=== PATIENT | male | born 1950 | race American Indian/Alaskan Native ===

== ENCOUNTER 2016-07-11 09:16 | Emergency (ER) | payer MEDICARE ==
[2016-07-11 09:26] VITALS: BMI 47.6
[2016-07-11 09:30] VITALS: RESP 18; TEMP 98.5
--- NOTE | 2016-07-11 10:34 | ED PDOC ---
Arrival/HPI - General Chief Complaint: Back Pain Time Seen by Provider: 07/11/16 10:02 Historian: Patient - History of Present Illness Narrative History of Present Illness (Text): 07/11/16 10:31 65-year-old male with a history of leukemia, diabetes, high blood pressure presents today with achy low back pain worse with movement. Patient states he's had the pain in his back for the past 3 days that seems to be worse when he moves sideways. Patient also complaining of left-sided abdominal cramping intermittently which he attributes to not taking the medication that he is supposed to be taking for cramping prior to eating. Patient denies diarrhea. Denies nausea or vomiting. Patient denies dysuria or urinary frequency but states a few days ago his urine had a different color to it. Patient states he then increased his fluids and states that the urine improved. pt denies bladder or bowel incontinence. He denies saddle paresthesias. Denies numbness weakness or tingling in the lower extremities. Patient states he has a chronic wound in the right lower leg for which he sees Dr. Brooks and he just came to the emergency room from the wound center. No medications have been taken for the patient's back pain. Time/Duration: Other ( 3 days) Symptom Onset: Gradual Symptom Course: Unchanged Quality: Stabbing, Cramping Severity Level: 3 Activities at Onset: Rest Past Medical History - Provider Review Nursing Documentation Reviewed: Yes - Travel History Have you recently traveled outside [place] w/in the past 3 mons?: No - Infectious Disease Hx of Infectious Diseases: None - Tetanus Immunization Tetanus Immunization: Unknown - Cardiac Hx Cardiac Disorders: Yes Hx Hypertension: Yes Hx Pacemaker: No Hx Peripheral Edema: Yes Hx Peripheral Vascular Disease: Yes Other/Comment: DVT RIGHT LEG - Pulmonary Hx Respiratory Disorders: Yes Hx Pneumonia: Yes (1995) Other/Comment: smoker - Neurological Hx Neurological Disorder: No - HEENT Hx HEENT Disorder: No - Renal Hx Renal Disorder: No - Endocrine/Metabolic Hx Endocrine Disorders: Yes Hx Diabetes Mellitus Type 2: Yes - Hematological/Oncological Hx Blood Disorders: No Hx Leukemia: Yes - Integumentary Hx Dermatological Disorder: Yes Other/Comment: ULCER RIGHT LEG - Musculoskeletal/Rheumatological Hx Musculoskeletal Disorders: No Hx Arthritis: Yes (RIGHT KNEE) Hx Falls: No Other/Comment: ULCERATION R LEG - Gastrointestinal Hx Gastrointestinal Disorders: No - Genitourinary/Gynecological Hx Genitourinary Disorders: No - Psychiatric Hx Psychophysiologic Disorder: No Hx Depression: No Hx Substance Use: No - Past Surgical History Past Surgical History: No Previous - Surgical History Hx Cardiac Catheterization: Yes Hx Coronary Stent: Yes (x1) Other/Comment: LOWER LEFT LOBECTOMY - Anesthesia Hx Anesthesia: Yes Hx Anesthesia Reactions: No Hx Malignant Hyperthermia: No - Suicidal Assessment Feels Threatened In Home Enviroment: No Family/Social History - Physician Review Nursing Documentation Reviewed: Yes Family/Social History: Unknown Family HX Smoking Status: Current Some Days Smoker Hx Alcohol Use: Yes Frequency of alcohol use: Socially Hx Substance Use: No Hx Substance Use Treatment: No Allergies/Home Meds Allergies/Adverse Reactions: Allergies No Known Allergies Allergy (Verified 03/05/16 15:41) Home Medications: Home Meds Medication Instructions Recorded Confirmed Metformin HCl 1,000 mg PO BID 03/15/12 07/11/16 Acarbose 50 mg PO TID 12/02/13 07/11/16 Rosuvastatin Calcium [Crestor] 10 mg PO HS 12/02/13 07/11/16 Furosemide [Lasix] 20 mg PO DAILY 07/14/15 07/11/16 Clopidogrel [Plavix] 75 mg PO DAILY 03/05/16 07/11/16 Potassium Chloride [Klor-Con 10 meq PO DAILY 03/05/16 07/11/16 Sprinkle] Imatinib Mesylate 400 mg PO DAILY 03/20/16 07/11/16 Aspirin [Lo-Dose Aspirin EC] 1 tab PO DAILY 05/16/16 07/11/16 Omeprazole [Omeprazole] 20 mg PO BID 05/16/16 07/11/16 Review of Systems - Review of Systems Constitutional: absent: Fatigue, Fevers Respiratory: absent: SOB, Cough Cardiovascular: absent: Chest Pain, Palpitations Gastrointestinal: Abdominal Pain. absent: Constipation, Diarrhea, Nausea, Vomiting Genitourinary Male: Dysuria, Frequency. absent: Urinary Output Changes Musculoskeletal: Back Pain. absent: Arthralgias, Neck Pain Skin: absent: Rash, Pruritis Neurological: absent: Headache, Dizziness Psychiatric: absent: Anxiety, Depression Physical Exam Vital Signs Reviewed: Yes Vital Signs Temp Pulse Resp BP Pulse Ox 07/11/16 12:56 82 18 158/96 H 98 07/11/16 11:00 86 18 158/79 H 96 07/11/16 09:29 98.5 F 90 18 163/86 H 95 Temperature: Afebrile Blood Pressure: Hypertensive Pulse: Regular Respiratory Rate: Normal Appearance: Positive for: Well-Appearing, Non-Toxic, Comfortable Pain Distress: None Mental Status: Positive for: Alert and Oriented X 3 - Systems Exam Head: Present: Atraumatic Mouth: Present: Moist Mucous Membranes Neck: Present: Normal Range of Motion Respiratory/Chest: Present: Clear to Auscultation, Good Air Exchange. No: Respiratory Distress, Accessory Muscle Use Cardiovascular: Present: Regular Rate and Rhythm, Normal S1, S2. No: Murmurs Abdomen: Present: Tenderness (Minimal left upper and left lower abdominal tenderness), Normal Bowel Sounds. No: Distention, Peritoneal Signs, Rebound, Guarding Back: Present: Normal Inspection. No: CVA Tenderness, Midline Tenderness, Paraspinal Tenderness Upper Extremity: Present: Normal ROM Neurological: Present: Speech Normal Skin: Present: Warm, Dry, Normal Color Psychiatric: Present: Alert, Oriented x 3 Medical Decision Making ED Course and Treatment: 07/11/16 10:33 Patient is nontoxic well appearing with stable vital signs presenting with [ severe] abdominal pain CBC wnl CMP wnl Urinalysis wnl urine culture pending CAT scan:FINDINGS: LOWER THORAX: No evidence of acute pathology at the lung bases. LIVER: Unremarkable. No gross lesion or ductal dilatation. GALLBLADDER AND BILE DUCTS: Gallstones are seen without evidence of acute cholecystitis. PANCREAS: Unremarkable. No gross lesion or ductal dilatation. SPLEEN: Unremarkable. ADRENALS: Unremarkable. No mass. KIDNEYS AND URETERS: There is no evidence of nephrolithiasis or hydronephrosis. Mild nonspecific bilateral perinephric stranding is noted. VASCULATURE: Unremarkable. No aortic aneurysm. BOWEL: Unremarkable. No obstruction. No gross mural thickening. APPENDIX: There is no evidence of appendicitis. PERITONEUM: Unremarkable. No free fluid. No free air. LYMPH NODES: [id number] enlarged right iliac chain lymphadenopathy are noted. BLADDER: Mild urinary bladder wall thickening. REPRODUCTIVE: The prostate and seminal vesicles are mildly enlarged. BONES: No acute fracture. OTHER FINDINGS: None. IMPRESSION: No evidence of nephrolithiasis or hydronephrosis. [id number] enlarged right iliac chain lymphadenopathy of uncertain etiology. Cholelithiasis without evidence of acute cholecystitis. EKG shows normal sinus rhythm at 83 bpm normal axis normal intervals no ST elevations toradol and flexeril given. case discussed with dr. welch. will treat as muscular back pain; pt has appointment with dr. welch today; advised f/u tomorrow. advised immediate return if symptoms worsen,persist or if new symptoms develop. Patient reassessment: pt non toxic well appearing; no distress. stable vitals. Discussed all results with patient in depth. advised f/u with pmd tomorrow. advised immediate return if symptoms worsen,persist or if new symptoms develop. will send urine culture. Impression: back pain flexeril; 1 tablet every 8 hours as needed for muscle spasms; may cause drowsiness. Follow up with primary care physician tomorrow. Return immediately if symptoms worsen persist or if new symptoms develop: High fevers, increasing pain, vomiting, diarrhea or any other concerning symptoms develop - Lab Interpretations Lab Results: 07/11/16 10:02 07/11/16 10:02 Lab Results 07/11/16 10:02: Urine Color Yellow, Urine Appearance Clear, Urine pH 6.0, Ur Specific Brooks 1.020, Urine Protein Negative, Urine Glucose (UA) Negative, Urine Ketones Negative, Urine Blood Negative, Urine Nitrate Negative, Urine Bilirubin Negative, Urine Urobilinogen 0.2, Ur Leukocyte Esterase Negative 07/11/16 10:02: WBC 7.1, RBC 3.49 L, Hgb 11.3 L, Hct 33.8 L, MCV 96.8, MCH 32.4 , MCHC 33.4, RDW 14.7 H, Plt Count 204, MPV 9.4, Gran % 75.7 H, Lymph % (Auto) 11.2 L, [place] % (Auto) 8.8 H, Eos % (Auto) 3.9, Baso % (Auto) 0.4, Gran # 5.39, Lymph # 0.8 L, [place] # 0.6, Eos # 0.3, Baso # 0.03 07/11/16 10:02: Sodium 142, Potassium 3.8, Chloride 101, Carbon Dioxide 33, Anion Gap 12, BUN 10, Creatinine 0.9, Est GFR ( Amer) > 60, Est GFR (Non- Af Amer) > 60, Random Glucose 95, Calcium 8.7, Total Bilirubin 0.6, AST 22, ALT 34, Alkaline Phosphatase 88, Total Protein 7.3, Albumin 3.8, Globulin 3.5, Albumin/Globulin Ratio 1.1, Lipase 143 - RAD Interpretation Radiology Orders: 07/11/16 10:03 ABD & PELVIS W/O PO OR IV CONT [CT] Stat - Medication Orders Current Medication Orders: Discontinued Medications Cyclobenzaprine HCl (Flexeril) 10 mg PO STAT STA Stop: 07/11/16 12:17 Last Admin: 07/11/16 12:25 Dose: 10 mg Ketorolac Tromethamine (Toradol) 30 mg IVP STAT STA Stop: 07/11/16 12:11 Last Admin: 07/11/16 12:23 Dose: 30 mg Re-Assess: ELYSSA Pain Assessment Document 07/11/16 13:15 SS (Rec: 07/11/16 13:16 SS [facility] [id number]) Pain Reassessment Is this a pain reassessment? Yes Sleep Is patient sleeping during reassessment? No Presence of Pain Presence of Pain Yes Pain Scale Used Pain Scale Used Numeric Location Left, Right or Bilateral Right Upper or Lower Lower Pain Location Body Site Back Description Intensity of Pain at present 1 Disposition/Present on Arrival - Present on Arrival Any Indicators Present on Arrival: Yes History of DVT/PE: Yes History of Uncontrolled Diabetes: Yes Urinary Catheter: No History of Decub. Ulcer: No History Surgical Site Infection Following: None - Disposition Have Diagnosis and Disposition been Completed?: Yes Diagnosis: Back pain, Abdominal pain Disposition: HOME/ ROUTINE Disposition Time: 12:23 Patient Plan: Discharge Condition: GOOD Discharge Instructions (ExitCare): Abdominal Pain (ED), Back Pain (ED) Additional Instructions: flexeril; 1 tablet every 8 hours as needed for muscle spasms; may cause drowsiness. Follow up with primary care physician tomorrow. Return immediately if symptoms worsen persist or if new symptoms develop: High fevers, increasing pain, vomiting, diarrhea or any other concerning symptoms develop Prescriptions: Cyclobenzaprine [Cyclobenzaprine HCl] 10 mg PO Q8 #10 tab Referrals: Asif Welch MD [Primary Care Provider] - Follow up with primary
[2016-07-11 11:03] LABS: ADD MANUAL DIFF? NO
[2016-07-11 11:05] LABS: BASO # 0.03 K/mm3 (0.0-2.0); BASO % 0.4 % (0.0-3.0); EOS # 0.3 (0.0-0.7); EOS % 3.9 % (1.5-5.0); GRAN # 5.39 (1.4-6.5); GRAN % 75.7 % (50.0-68.0); HEMATOCRIT 33.8 % (42.0-52.0); LYMPH # 0.8 (1.2-3.4); LYMPH % 11.2 % (22.0-35.0); MEAN CELL VOLUME 96.8 fL (80.0-105.0); MEAN CORPUSCULAR HEMOGLOBIN 32.4 pg (25.0-35.0); MEAN CORPUSCULAR HGB CONC 33.4 g/dl (31.0-37.0); MEAN PLATELET VOLUME 9.4 fl (7.0-11.0); MONO # 0.6 (0.1-0.6); MONO % 8.8 % (1.0-6.0); PLATELET COUNT 204 10^3/uL (120.0-450.0); RED CELL DISTRIBUTION WIDTH 14.7 % (11.5-14.5); URINE BILIRUBIN NEGATIVE (NEGATIVE); URINE BLOOD NEGATIVE (NEGATIVE); URINE GLUCOSE (UA) NEGATIVE (NEGATIVE); URINE KETONE NEGATIVE (NEGATIVE); URINE LEUKOCYTE ESTERASE NEGATIVE Leu/uL (NEGATIVE); URINE PROTEIN NEGATIVE mg/dL (<30 mg/dL); URINE UROBILINOGEN 0.2 E.U./dL (<1 E.U./dL); WHITE BLOOD COUNT 7.1 10^3/ul (4.5-11.0)
--- NOTE | 2016-07-11 11:08 | CT ---
PROCEDURE: CT Abdomen and Pelvis without intravenous contrast HISTORY: ABDOMINAL PAIN/flank pain COMPARISON: None. TECHNIQUE: Axial and reformatted coronal and sagittal CT images of the abdomen and pelvis were obtained without IV contrast administration.. Contrast Dose: 0 IV contra Radiation dose: Total exam DLP = 2039.2 mGy-cm. This CT exam was performed using one or more of the following dose reduction techniques: Automated exposure control, adjustment of the mA and/or kV according to patient size, and/or use of iterative reconstruction technique. FINDINGS: LOWER THORAX: No evidence of acute pathology at the lung bases. LIVER: Unremarkable. No gross lesion or ductal dilatation. GALLBLADDER AND BILE DUCTS: Gallstones are seen without evidence of acute cholecystitis. PANCREAS: Unremarkable. No gross lesion or ductal dilatation. SPLEEN: Unremarkable. ADRENALS: Unremarkable. No mass. KIDNEYS AND URETERS: There is no evidence of nephrolithiasis or hydronephrosis. Mild nonspecific bilateral perinephric stranding is noted. VASCULATURE: Unremarkable. No aortic aneurysm. BOWEL: Unremarkable. No obstruction. No gross mural thickening. APPENDIX: There is no evidence of appendicitis. PERITONEUM: Unremarkable. No free fluid. No free air. LYMPH NODES: [id number]-[id number] enlarged right iliac chain lymphadenopathy are noted. BLADDER: Mild urinary bladder wall thickening. REPRODUCTIVE: The prostate and seminal vesicles are mildly enlarged. BONES: No acute fracture. OTHER FINDINGS: None. IMPRESSION: No evidence of nephrolithiasis or hydronephrosis. [id number]-[id number] enlarged right iliac chain lymphadenopathy of uncertain etiology. Cholelithiasis without evidence of acute cholecystitis.
[2016-07-11 11:17] LABS: ALB/GLOB RATIO 1.1 (1.1-1.8); ALKALINE PHOSPHATASE 88 U/L (38-133); ALT/SGPT 34 U/L (7-56); AST/SGOT 22 U/L (15-59); BILIRUBIN,TOTAL 0.6 mg/dL (0.2-1.3); BLOOD UREA NITROGEN 10 mg/dL (7-21); CALCIUM 8.7 mg/dL (8.4-10.5); CARBON DIOXIDE 33 mmol/L (21-33); CHLORIDE 101 mmol/L (98-107); GFR AFRICAN-AMERICAN > 60; GLUCOSE,RANDOM 95 mg/dL (70-110); LIPASE 143 U/L (23-300); POTASSIUM 3.8 mmol/L (3.6-5.0); SODIUM 142 mmol/L (132-148); TOTAL PROTEIN 7.3 g/dL (5.8-8.3)
--- NOTE | 2016-07-11 11:40 | CARD ---
APPROVED REPORT EKG Measurement Heart [id number] <Conclusion> Normal sinus rhythm Normal ECG
[2016-07-11 11:53] LABS: URINE APPEARANCE CLEAR (CLEAR); URINE COLOR YELLOW (YELLOW)
[2016-07-11 12:56] VITALS: BP 158/96; PULSE 82; O2SAT 98
== END 2016-07-11 12:59 | disposition home or self-care (01) ==
LOC: ED 09:16
DX: R10.9 Unspecified abdominal pain (principal); M54.5 Low back pain; E11.9 Type 2 diabetes mellitus without complications
CPT/HCPCS: 74176; 80053; 81003; 83690; 85025; 87086; 93005; 96374; 99284; J1885

== ENCOUNTER 2016-10-11 16:23 | Observation (INO) | payer MEDICARE ==
[2016-10-11 16:49] VITALS: BMI 43.1
--- NOTE | 2016-10-11 17:22 | ED PDOC ---
Arrival/HPI - General Chief Complaint: Back Pain Time Seen by Provider: 10/11/16 16:59 Historian: Patient - History of Present Illness Narrative History of Present Illness (Text): The pt is a 66yo male, past medical history of CAD with stents, DM, multiple DVT 's, presents to the Emergency department for evaluation of lower back pain, worse o the left side, present for the past couple days. Pt also reports some chest tightness and discomfort with deep breathing. Additionally reports he feels some epigastric discomfort at times after eating food, describes it as food getting "stuck" in that area. Pt also reports some associated shortness of breath. He denies any worsening leg pain, any dysuria, hematuria. Pt offers no additional medical complaints. Time/Duration: < week (3-4 days) Symptom Onset: Gradual Past Medical History - Provider Review Nursing Documentation Reviewed: Yes - Infectious Disease Hx of Infectious Diseases: None - Tetanus Immunization Tetanus Immunization: Unknown - Cardiac Hx Cardiac Disorders: Yes Hx Hypertension: Yes Hx Pacemaker: No Hx Peripheral Edema: Yes Hx Peripheral Vascular Disease: Yes Other/Comment: DVT RIGHT LEG - Pulmonary Hx Respiratory Disorders: Yes Hx Pneumonia: Yes (1995) Other/Comment: smoker - Neurological Hx Neurological Disorder: No - HEENT Hx HEENT Disorder: No - Renal Hx Renal Disorder: No - Endocrine/Metabolic Hx Endocrine Disorders: Yes Hx Diabetes Mellitus Type 2: Yes - Hematological/Oncological Hx Blood Disorders: No Hx Leukemia: Yes - Integumentary Hx Dermatological Disorder: Yes Other/Comment: ULCER RIGHT LEG - Musculoskeletal/Rheumatological Hx Musculoskeletal Disorders: No Hx Arthritis: Yes (RIGHT KNEE) Hx Falls: No Other/Comment: ULCERATION R LEG - Gastrointestinal Hx Gastrointestinal Disorders: No - Genitourinary/Gynecological Hx Genitourinary Disorders: No - Psychiatric Hx Psychophysiologic Disorder: No Hx Depression: No Hx Substance Use: No - Past Surgical History Past Surgical History: No Previous - Surgical History Hx Cardiac Catheterization: Yes Hx Coronary Stent: Yes (x1) Other/Comment: LOWER LEFT LOBECTOMY - Anesthesia Hx Anesthesia: Yes Hx Anesthesia Reactions: No Hx Malignant Hyperthermia: No - Suicidal Assessment Feels Threatened In Home Enviroment: No Family/Social History - Physician Review Nursing Documentation Reviewed: Yes Family/Social History: Unknown Family HX Smoking Status: Former Smoker Hx Alcohol Use: Yes Frequency of alcohol use: Socially Hx Substance Use: No Hx Substance Use Treatment: No Allergies/Home Meds Allergies/Adverse Reactions: Allergies No Known Allergies Allergy (Verified 03/05/16 15:41) Home Medications: Home Meds Medication Instructions Recorded Confirmed Metformin HCl 1,000 mg PO BID 03/15/12 10/11/16 Acarbose 50 mg PO TID 12/02/13 10/11/16 Rosuvastatin Calcium [Crestor] 10 mg PO HS 12/02/13 10/11/16 Furosemide [Lasix] 20 mg PO DAILY 07/14/15 10/11/16 Clopidogrel [Plavix] 75 mg PO DAILY 03/05/16 10/11/16 Potassium Chloride [Klor-Con 10 meq PO DAILY 03/05/16 10/11/16 Sprinkle] Imatinib Mesylate 400 mg PO DAILY 03/20/16 10/11/16 Aspirin [Lo-Dose Aspirin EC] 1 tab PO DAILY 05/16/16 10/11/16 Omeprazole [Omeprazole] 20 mg PO BID 05/16/16 10/11/16 Review of Systems - Review of Systems Respiratory: SOB Cardiovascular: Other (chest tightness) Musculoskeletal: Back Pain (lower). absent: Other (leg pain) Physical Exam - Physical Exam Narrative Physical Exam (Text): Head: Atraumatic. Normocephalic. Eyes: PERRL. EOMI. Conjunctivae are not pale. ENT: Mucous membranes are moist and intact. Oropharynx is clear and symmetric. Neck: Supple. Full ROM. No JVD. No lymphadenopathy. Cardiovascular: Regular rate. Regular rhythm. Systolic murmur. Distal pulses are 2+ and symmetric. Pulmonary/Chest: No evidence of respiratory distress. Clear to auscultation bilaterally. No wheezing, rales or rhonchi. Abdominal: Soft and non-distended. Mild epigastric pain, no pulsatile masses. No rebound or guarding. Back: No CVA tenderness. Paraspinal mid back pain worse with ROM. Extremities: Bilateral lower extremity edema. FROM of hip and knee. Skin: Skin is warm and dry. No petechiae. No purpura. Neurological: Alert, awake, and oriented to person, place, time, and situation. Normal speech. Motor and sensory exam intact. Psychiatric: Good eye contact. Normal interaction, affect, and behavior. 10/11/16 19:51 Vital Signs Reviewed: Yes Vital Signs Temp Pulse Resp BP Pulse Ox 10/11/16 17:35 89 18 128/71 95 10/11/16 16:51 98.8 F 95 H 18 131/77 95 Temperature: Afebrile Appearance: Positive for: Non-Toxic Pain Distress: Mild Mental Status: Positive for: Alert and Oriented X 3 Medical Decision Making ED Course and Treatment: Impression: 66yo male w/ complaints of lower back pain and shortness of breath Differential Diagnosis included but are not limited to: Pulmonary embolism, pneumonia, kidney stones, pyelonephritis, muscle strain Plan: -- Labs -- Chest X-ray -- EKG -- Reassess and disposition Prior Visits: Notes and results from previous visits were reviewed. Progress Notes: 10/11/16 19:23 Chest X-ray impression: No active pulmonary disease. Chronic left pleural thickening. Labs indicate elevated D-dimer levels. Based on elevated d-dimer levels and complaints of chest pain, CT Angio ordered for further evaluation. CT abdomen ordered due to history of flank/back pain. 10/11/16 21:45 - RAD Interpretation Multimedia Assistant: Radiologist - EKG Interpretation EKG Interpretation (Text): 10/11/16 19:55 normal sinus rhythm rate of [address] elevations Interpreted by ED Physician: Yes Type: 12 lead EKG - Medication Orders Current Medication Orders: Discontinued Medications Azithromycin (Zithromax) 500 mg PO STAT STA PRN Reason: Protocol Stop: 10/11/16 21:40 Iohexol (Omnipaque 350 150 Ml) Confirm Administered Dose 150 ml .ROUTE .STK-MED ONE Stop: 10/11/16 19:01 Ketorolac Tromethamine (Toradol) 30 mg IVP ONCE ONE Stop: 10/11/16 21:24 ED OBSERVATION Date of observation admission: 10/11/16 Time of observation admission: 17:00 - Observation admission statement Patient is being placed in observation because:: Patient with sob, pleuritic pain. Will obtain labs, serial exams. - Goals of Observation Goals of observation are:: Perfrom cardiac, pulmonary, renal evaluation. Ddimer elevated thus ct angiography ordered. - Progress Note Progress Note: 10/11/16 19:56 Patient in no respiratory distress. Labs including ddimer reviewed with patient. As prior history of DVT and elevated Ddimer, ct angio ordered. There is palpable component to back pain, worse with turning and movements. 10/11/16 21:15 CT Angio IMPRESSION: 1. Minimal scattered atelectasis or scar with question of minimal bibasilar infiltrates. 2. Otherwise grossly negative CTA chest. No central pulmonary embolism is identified. Peripheral emboli are more difficult to exclude given the less than optimal opacification of pulmonary branches. 10/11/16 21:17 CT AP IMPRESSION: 1. There has been no change since 07/11/2016. No acute interval process is identified. No renal or ureteral calculi are evident and there is no evidence of obstructive uropathy. 2. Cholelithiasis. 3. Mildly prominent right external iliac nodes which are unchanged. 10/11/16 21:44 Patient on re-evaluation has focal RUQ pain. EKG and troponin unremarkable. Cannot exclude biliary colic as component of symptoms worse with meals. Plan to admit to telemetry observation for cardiac monitoring, GI consultation. Ddx: cad, pneumonia, biliary colic, muscle strain Toradol ordered. Treatment plan reviewed with patient. - Scribe Statement The provider has reviewed the documentation as recorded by the Serafin Clements Provider Scribe Attestation: All medical record entries made by the Dinoibida were at my direction and personally dictated by me. I have reviewed the chart and agree that the record accurately reflects my personal performance of the history, physical exam, medical decision making, and the department course for this patient. I have also personally directed, reviewed, and agree with the discharge instructions and disposition. Disposition/Present on Arrival - Present on Arrival Any Indicators Present on Arrival: Yes History of DVT/PE: Yes History of Uncontrolled Diabetes: Yes Urinary Catheter: No History of Decub. Ulcer: No History Surgical Site Infection Following: None - Disposition Have Diagnosis and Disposition been Completed?: Yes Diagnosis: Cholelithiasis, Dyspnea, Chest pain, Back pain Disposition: HOME/ ROUTINE Disposition Time: 21:46 Patient Plan: Admission, Observation Condition: FAIR
--- NOTE | 2016-10-11 18:02 | RAD ---
HISTORY: pleuritic chest pain COMPARISON: 03/05/2016. FINDINGS: LUNGS: The lungs are clear. There is left pleural thickening. PLEURA: No significant pleural effusion identified, no pneumothorax apparent. CARDIOVASCULAR: The heart is normal in size. Atherosclerotic aortic arch calcifications are present. OSSEOUS STRUCTURES: No significant abnormalities. VISUALIZED UPPER ABDOMEN: Normal. OTHER FINDINGS: There is chronic elevation of the right hemidiaphragm IMPRESSION: No active pulmonary disease. Chronic left pleural thickening.
[2016-10-11 18:11] LABS: HEMOGLOBIN 11.3 gm/dL (14.0-18.0); RBC 3.42 10^6/uL (3.5-6.1); WHITE BLOOD COUNT 8.2 10^3/ul (4.5-11.0)
[2016-10-11 18:12] LABS: ALB/GLOB RATIO 1.2 (1.1-1.8); ALBUMIN 3.9 g/dL (3.0-4.8); ALT/SGPT 28 U/L (7-56); AST/SGOT 32 U/L (15-59); BASO # 0.02 K/mm3 (0.0-2.0); BASO % 0.2 % (0.0-3.0); BLOOD UREA NITROGEN 9 mg/dL (7-21); EOS # 0.3 (0.0-0.7); EOS % 3.4 % (1.5-5.0); GFR AFRICAN-AMERICAN > 60; GFR NON-AFRICAN AMERICAN > 60; GRAN % 73.5 % (50.0-68.0); LYMPH # 1.1 (1.2-3.4); LYMPH % 13.2 % (22.0-35.0); MEAN CELL VOLUME 99.4 fL (80.0-105.0); MEAN CORPUSCULAR HGB CONC 33.2 g/dl (31.0-37.0); MEAN PLATELET VOLUME 9.7 fl (7.0-11.0); MONO # 0.8 (0.1-0.6); MONO % 9.7 % (1.0-6.0); PLATELET COUNT 236 10^3/uL (120.0-450.0); RED CELL DISTRIBUTION WIDTH 14.7 % (11.5-14.5)
[2016-10-11 18:24] LABS: TROPONIN I < 0.01 ng/mL
[2016-10-11 18:44] LABS: D DIMER 1.33 mg/L FEU (0-0.50); INR 1.03 (0.93-1.08); PARTIAL THROMBOPLASTIN TIME 24.3 Seconds (23.7-30.8); PROTHROMBIN TIME 11.1 Seconds (9.9-11.8)
[2016-10-11 19:23] LABS: PH,URINE 6.5 (4.7-8.0); URINE BILIRUBIN NEGATIVE (NEGATIVE); URINE BLOOD NEGATIVE (NEGATIVE); URINE GLUCOSE (UA) NEGATIVE (NEGATIVE); URINE LEUKOCYTE ESTERASE NEGATIVE Leu/uL (NEGATIVE); URINE NITRATE NEGATIVE (NEGATIVE)
[2016-10-11 19:24] LABS: URINE APPEARANCE CLEAR (CLEAR); URINE PROTEIN NEGATIVE mg/dL (<30 mg/dL)
[2016-10-11] MEDS: Insulin Reg-LOW-Coverage SC SCH (23:03)
[2016-10-12 00:55] VITALS: RESP 20
[2016-10-12 06:44] VITALS: TEMP 97.4; O2SAT 97
[2016-10-12] MEDS: Insulin Reg-LOW-Coverage SC SCH ×2 (08:38→11:37)
--- NOTE | 2016-10-12 11:10 | CT ---
PROCEDURE: CT Abdomen and Pelvis without intravenous contrast HISTORY: flank pain COMPARISON: Abdomen pelvis CT without contrast 07/11/2016. TECHNIQUE: Technique. Contrast Dose: None Radiation dose: Total exam DLP = 1235 mGy-cm. This CT exam was performed using one or more of the following dose reduction techniques: Automated exposure control, adjustment of the mA and/or kV according to patient size, and/or use of iterative reconstruction technique. FINDINGS: LOWER THORAX: Delayed left hemidiaphragm, etiology indeterminate. LIVER: Unremarkable. No gross lesion or ductal dilatation. GALLBLADDER AND BILE DUCTS: Cholelithiasis identified within a contracted gallbladder. Biliary tree is poorly evaluated due to lack of intravenous contrast. PANCREAS: Unremarkable. No gross lesion or ductal dilatation. SPLEEN: Unremarkable. ADRENALS: Unremarkable. No mass. KIDNEYS AND URETERS: Stable nonspecific perinephric streaky changes are identified bilaterally once again. No definite obstructive uropathy or radiodense urolithiasis. VASCULATURE: Unremarkable. No aortic aneurysm. BOWEL: Unremarkable. No obstruction. No gross mural thickening. The lack of oral contrast inhibits the evaluation of large and small bowel APPENDIX: Unremarkable. Normal appendix. PERITONEUM: Unremarkable. No free fluid. No free air. LYMPH NODES: Mildly enlarged right external iliac lymph nodes again evident, unchanged. BLADDER: Unremarkable. REPRODUCTIVE: Unremarkable. BONES: No acute fracture. OTHER FINDINGS: None. IMPRESSION: 1. Nonacute abdomen pelvis CT examination without contrast. Further characterization can be carried out by contrast CT if clinically warranted. 2. Cholelithiasis. 3. Chronic bilateral perinephric streaky changes of uncertain origin unchanged. 4. Limited left hemidiaphragm.
--- NOTE | 2016-10-12 11:43 | CT ---
PROCEDURE: CT Chest with contrast (Pulmonary Angiogram) HISTORY: r/o PE COMPARISON: Prior CT angiogram chest 03/05/2016. TECHNIQUE: Axial computed tomography images were obtained of the chest in the pulmonary arterial phase of enhancement. Coronal and sagittal reformatted images were created and reviewed. Intravenous contrast dose: Omnipaque 350, 148 cc Radiation dose: Total exam DLP = 975 mGy-cm. This CT exam was performed using one or more of the following dose reduction techniques: Automated exposure control, adjustment of the mA and/or kV according to patient size, and/or use of iterative reconstruction technique. FINDINGS: PULMONARY ARTERIES: The main pulmonary artery is mildly dilated measuring measuring 31 mm suspicious for pulmonary artery hypertension. No definitive pulmonary embolus identified however the less than optimal contrast opacification is encountered limiting evaluation somewhat. Secondary, tertiary and more distal pulmonary branching is poorly evaluated. AORTA: No acute findings. No thoracic aortic aneurysm. LUNGS: Limited bilateral basilar dependent atelectasis identified. Ground-glass opacities identified at the bases somewhat, of uncertain origin. A tiny bulla is appreciate the right middle lobe in the interval with a similar additional bulla the left lower lobe, which is stable. PLEURAL SPACES: Unremarkable. No effusion or pneuomothorax. HEART: Stable cardiomegaly. No pulmonary vascular derangement. LYMPH NODES: No lymphadenopathy. BONES, CHEST WALL: Extensive multi level thoracic spondylosis is identified. OTHER FINDINGS: Unremarkable. IMPRESSION: 1. Somewhat suboptimal contrast opacification throughout the pulmonary arterial system however no definitive pulmonary embolus is appreciate. Small branches are poorly evaluated however. Clinically correlate further. 2. Pulmonary hypertension is in question. Clinically correlate further. 3. Stable cardiomegaly. 4. Limited ground-glass opacity seen in the bilateral lung bases which is nonspecific. No definite alveolitis. No pleural effusion.
--- NOTE | 2016-10-12 11:45 | CARD ---
APPROVED REPORT EKG Measurement Heart [id number] VT 152P51 [id number] <Conclusion> Normal sinus rhythm Normal ECG
[2016-10-12 11:55] VITALS: BP 130/64; PULSE 80
--- NOTE | 2016-10-12 20:51 | HP ---
CHIEF COMPLAINT AND HISTORY OF PRESENT ILLNESS: This is a 66-year-old male who is coming into the hospital with complaints of back pain. The patient states that his pain started suddenly yesterday. He states that it was at the sides of his flanks as well. He has a past medical history of coronary artery disease with stents, diabetes and DVT. The patient has no fevers or chills. He also was feeling that food was getting stuck in his throat. The patient has no shortness of breath that he complained to me about, although he did tell the ER that he has some associated shortness of breath. He denies any fevers or chills. No dysuria, frequency. No nocturia. No weakness in the arms or legs. ALLERGIES: No known drug allergies. HOME MEDICATIONS: Metformin, Crestor, acarbose, Lasix, Plavix, potassium, imatinib, aspirin and omeprazole. PAST MEDICAL HISTORY: Diabetes type 2, morbid obesity and hypertension. SOCIAL HISTORY: He denies drinking, smoking or alcohol. PHYSICAL EXAMINATION VITAL SIGNS: Temperature is 97.4, pulse is 74, blood pressure 114/66, respirations 20, O2 saturation 97%. GENERAL: The patient is lying in bed, flat, and in no apparent distress. HEAD AND NECK EXAM: Atraumatic, normocephalic. Conjunctivae are pink. Throat is clear and mouth with moist mucosa. Oropharynx is benign. EYES: Extraocular movements are intact. PERRLA. NECK: Supple. No JVD, thyromegaly, or adenopathy. No bruits. HEART: S1 and S2 regular rate and rhythm. No murmurs, rubs, or gallops. LUNGS: Clear to auscultation bilaterally. No wheezing, rales, or rhonchi appreciated. No retractions on exam. ABDOMEN: Soft, nontender, and nondistended. Bowel sounds are positive in all quadrants. No rebound. No hepatosplenomegaly. EXTREMITIES: No cyanosis, clubbing, or edema. NEUROLOGIC: No facial asymmetry. Tongue is midline. No uvula deviation. Power is 5/5 in upper extremity and 5/5 in lower extremity. Sensation is normal in upper extremities and lower extremities. PSYCHIATRIC: Awake, alert, oriented x3. No anxiety or depression symptoms. Good insight. Normal affect. GENITOURINARY: No CVA tenderness. VASCULAR: 2+ pulses in carotid and pedal pulses. SKIN: No erythema or abnormal nodules noted. SPINE: Normal curvature. LYMPHADENOPATHY: No anterior cervical or posterior cervical adenopathy. No inguinal adenopathy. LABORATORY DATA: White count of 8.2, hemoglobin 11.3 and platelet count is 236. Chemistry shows a sodium of 142, potassium is 3.9, creatinine is 1.2, troponin is 0.01, INR is 1.03. Urine shows glucose is negative, blood is negative and nitrites are negative. Chest x-ray done shows no active pulmonary disease. There is chronic left pleural thickening. CT angio was done, showed no change since the last CAT scan. There is cholelithiasis. There is a prominent right external iliac nodule. CT angio shows negative for PE. ASSESSMENT: 1. Cholelithiasis. 2. Diabetes type 2. 3. Morbid obesity with a BMI of 43. 4. Hypertension. 5. Chronic venous ulcers. PLAN: The patient is comfortable. He has no other complaints. I will discharge him home. I will follow up him as an outpatient. I have asked Dr. Delgadillo to see him for followup as well. He is going to be on Lasix. He is on Metformin but has been on hold because of contrast he received and he is on insulin sliding scale. Condition is stable. Activities, increase as tolerated. Asif Welch MD
--- NOTE | 2016-10-13 02:35 | CON ---
This is Dr. zoran Villafana dictating a cardiology consultation (for Dr. Gunderson). HISTORY: The patient is a 66-year-old male who presents with atypical chest pain. He suffers from diabetes mellitus, hypertension and hypercholesterolemia. The patient had a cardiac evaluation this year, which included a stress test as well as an echocardiogram, which were all unremarkable. The patient is adamant about not having any chest pain discomfort. He does complain of occasional shortness of breath. SOCIAL HISTORY: The patient is an active smoker. REVIEW OF SYSTEMS: A 14-point review of systems was reviewed in detail. Other than his shortness of breath, no other cardiac symptoms are noted. PHYSICAL EXAMINATION: Vital signs: On physical exam blood pressure 145/77, heart rate in the 70s. Neck: Negative JVD. Lungs: Without rales. Heart: Reveal S1, S2. Extremities: Without edema. EKG is unremarkable. Hemoglobin is 11.3. Troponin is negative x1. The glucose is 135. IMPRESSION 1. Atypical chest pain. 2. No evidence for acute coronary syndrome. 3. Dyspnea, which is likely related to his smoking. 4. Hypertension. 5. Diabetes mellitus. 6. Hypercholesterolemia. 7. Active smoker. Given these findings, I have discussed with the patient about the need to stop smoking. Risks, benefits have been discussed in detail. Will DC telemetry today. No further cardiac workup is necessary. Zoran Villafana MD
== END 2016-10-12 13:38 | disposition home or self-care (01) ==
LOC: ED 16:23 → EROBSV 17:00 → ERH 21:58 → 2RSO 10-12 00:22
PROVIDERS: ADMIT Internal Medicine Nephrology; ATTEND Internal Medicine Nephrology
DX: R07.89 Other chest pain (principal); E11.9 Type 2 diabetes mellitus without complications; E66.01 Morbid (severe) obesity due to excess calories; Z68.41 Body mass index [BMI] 40.0-44.9, adult; E78.00 Pure hypercholesterolemia, unspecified; F17.200 Nicotine dependence, unspecified, uncomplicated; I10 Essential (primary) hypertension; I25.10 Atherosclerotic heart disease of native coronary artery without angina pectoris; I73.9 Peripheral vascular disease, unspecified; J18.9 Pneumonia, unspecified organism; K80.20 Calculus of gallbladder without cholecystitis without obstruction; Z79.02 Long term (current) use of antithrombotics/antiplatelets; Z79.82 Long term (current) use of aspirin; Z79.899 Other long term (current) drug therapy; Z85.6 Personal history of leukemia; Z87.01 Personal history of pneumonia (recurrent); Z95.5 Presence of coronary angioplasty implant and graft
CPT/HCPCS: 71010; 71275; 74176; 80053; 81003; 82550; 82948; 83615; 84484; 85025; 85378; 85610; 85730; 93005; 96374; 96375; 99285; G0378; J1885; Q9967

== ENCOUNTER 2016-12-08 20:40 | Observation (INO) | payer MEDICARE ==
--- NOTE | 2016-12-08 21:16 | ED PDOC ---
Arrival/HPI - General Chief Complaint: Weakness/Neurological Deficit Time Seen by Provider: 12/08/16 21:09 Historian: Patient - History of Present Illness Narrative History of Present Illness (Text): 12/08/16 21:15 Emeka Handy is a 66 year old male, whose past medical history includes CAD with stents, diabetes, hypertension, DVT, and PVD, who presents to the ED complaining of chest discomfort for the past few days. Patient also reports associated shortness of breath/dyspnea on exertion. Patient denies any nausea, vomiting, diarrhea, fever, chills, headache, dizziness, or any other complaints. PMD: Dr. Welch Fitness Plan Coordinator: Dr. Gunderson Time/Duration: < week (few days) Symptom Onset: Gradual Symptom Course: Unchanged Activities at Onset: Light Context: Home Past Medical History - Provider Review Nursing Documentation Reviewed: Yes - Infectious Disease Hx of Infectious Diseases: None - Tetanus Immunization Tetanus Immunization: Unknown - Cardiac Hx Cardiac Disorders: Yes Hx Hypertension: Yes Hx Pacemaker: No Hx Peripheral Edema: Yes Hx Peripheral Vascular Disease: Yes Other/Comment: DVT RIGHT LEG - Pulmonary Hx Respiratory Disorders: Yes Hx Pneumonia: Yes (1995) Other/Comment: smoker - Neurological Hx Neurological Disorder: No - HEENT Hx HEENT Disorder: No - Renal Hx Renal Disorder: No - Endocrine/Metabolic Hx Endocrine Disorders: Yes Hx Diabetes Mellitus Type 2: Yes - Hematological/Oncological Hx Blood Disorders: No - Integumentary Hx Dermatological Disorder: Yes Other/Comment: ULCER RIGHT LEG - Musculoskeletal/Rheumatological Hx Falls: Yes - Gastrointestinal Hx Gastrointestinal Disorders: No - Genitourinary/Gynecological Hx Genitourinary Disorders: No - Psychiatric Hx Psychophysiologic Disorder: No Hx Depression: No Hx Substance Use: No - Past Surgical History Past Surgical History: No Previous - Surgical History Hx Cardiac Catheterization: Yes Hx Coronary Stent: Yes (x1) Other/Comment: LOWER LEFT LOBECTOMY - Anesthesia Hx Anesthesia: Yes Hx Anesthesia Reactions: No Hx Malignant Hyperthermia: No - Suicidal Assessment Feels Threatened In Home Enviroment: No Family/Social History - Physician Review Nursing Documentation Reviewed: Yes Family/Social History: Unknown Family HX Smoking Status: Former Smoker Hx Alcohol Use: Yes Frequency of alcohol use: Socially Hx Substance Use: No Hx Substance Use Treatment: No Allergies/Home Meds Allergies/Adverse Reactions: Allergies No Known Allergies Allergy (Verified 12/08/16 20:47) Home Medications: Home Meds Medication Instructions Recorded Confirmed Metformin HCl 1,000 mg PO BID 03/15/12 12/08/16 Acarbose 50 mg PO TID 12/02/13 12/08/16 Rosuvastatin Calcium [Crestor] 10 mg PO HS 12/02/13 12/08/16 Furosemide [Lasix] 20 mg PO DAILY 07/14/15 12/08/16 Clopidogrel [Plavix] 75 mg PO DAILY 03/05/16 12/08/16 Potassium Chloride [Klor-Con 10 meq PO DAILY 03/05/16 12/08/16 Sprinkle] Imatinib Mesylate 400 mg PO DAILY 03/20/16 12/08/16 Aspirin [Lo-Dose Aspirin EC] 1 tab PO DAILY 05/16/16 12/08/16 Omeprazole [Omeprazole] 20 mg PO BID 05/16/16 12/08/16 Review of Systems - Physician Review All systems were reviewed & negative as marked: Yes - Review of Systems Constitutional: Normal. absent: Fevers Eyes: Normal ENT: Normal Respiratory: SOB Cardiovascular: Chest Pain, JAY Gastrointestinal: Normal. absent: Abdominal Pain, Diarrhea, Nausea, Vomiting Genitourinary Male: Normal. absent: Dysuria, Frequency, Hematuria, Urinary Output Changes Musculoskeletal: Normal. absent: Back Pain, Neck Pain Skin: Normal. absent: Rash Neurological: Normal. absent: Headache, Dizziness Endocrine: Normal Hemo/Lymphatic: Normal Psychiatric: Normal Physical Exam Vital Signs Reviewed: Yes Vital Signs Temp Pulse Resp BP Pulse Ox 12/08/16 23:55 82 16 125/65 95 12/08/16 22:55 81 16 134/61 96 12/08/16 21:55 83 18 131/52 L 97 12/08/16 20:51 98.3 F 96 H 18 148/80 94 L Temperature: Afebrile Blood Pressure: Normal Pulse: Regular Respiratory Rate: Normal Appearance: Positive for: Well-Appearing, Non-Toxic, Comfortable Pain Distress: None Mental Status: Positive for: Alert and Oriented X 3 - Systems Exam Head: Present: Atraumatic, Normocephalic Pupils: Present: PERRL Extroacular Muscles: Present: EOMI Conjunctiva: Present: Normal Mouth: Present: Moist Mucous Membranes Neck: Present: Normal Range of Motion Respiratory/Chest: Present: Clear to Auscultation, Good Air Exchange. No: Respiratory Distress, Accessory Muscle Use Cardiovascular: Present: Regular Rate and Rhythm, Normal S1, S2. No: Murmurs Abdomen: Present: Normal Bowel Sounds. No: Tenderness, Distention, Peritoneal Signs Upper Extremity: Present: Normal Inspection. No: Cyanosis, Edema Lower Extremity: Present: Normal Inspection, NORMAL PULSES, Normal ROM, Neurovascularly Intact, Capillary Refill < 2 s. No: Edema, CALF TENDERNESS, Cyanosis, Jordan's Sign, Tenderness, Swelling, Erythema, Deformity, Temperature Abnormalties Neurological: Present: GCS=15, CN II-XII Intact, Speech Normal Skin: Present: Warm, Dry, Normal Color. No: Rashes Psychiatric: Present: Alert, Oriented x 3, Normal Insight, Normal Concentration Medical Decision Making ED Course and Treatment: 12/08/16 21:16 Impression: 66 year old male c/o chest discomfort and shortness of breath/dyspnea on exertion for 2-3 days. Plan: -- EKG -- CXR -- Labs, cardiac enzymes -- Reassess and disposition Prior Visits: Notes and results from previous visits were reviewed. On 10/11/2016, pt was seen in the ED for lower back pain with chest tighness and shortness of breath. Pt was admitted to the hospital for further evaluation. Progress Notes: 12/08/16 21:45 Reviewed EKG, NSR at [address]-segment elevations or depressions, no T-wave inversions, normal intervals. 12/08/16 23:57 Reviewed radiology, CXR show: Persistent lesion of the left hemidiaphragm, with adjacent compressive atelectasis (unchanged from 10/11/2016). The remainder of the cardiomediastinal silhouette is otherwise unremarkable. The remainder of the lungs are otherwise clear. No subdiaphragmatic free air or pneumothorax. The trachea is midline. IMPRESSION: Stable radiographic evaluation of the chest, without focal infiltrate or effusion. 12/09/16 00:[address] Welch, who is aware and agrees with plan. Accepts pt in to his service. Pt will go to Telemetry observation for chest pain. Pt is no acute distress. Discussed results and hospital observation plan with pt , who is aware and verbalizes understanding. - Lab Interpretations Lab Results: 12/08/16 21:50 12/08/16 21:50 Lab Results 12/08/16 22:50: NT-Pro-B Natriuret Pep 123 12/08/16 21:50: WBC 8.0, RBC 3.19 L, Hgb 10.5 L, Hct 30.9 L, MCV 96.9, MCH 32.9 , MCHC 34.0, RDW 13.5, Plt Count 180, MPV 9.3 12/08/16 21:50: Sodium 145, Potassium 3.8, Chloride 106, Carbon Dioxide 28, Anion Gap 15, BUN 13, Creatinine 1.0, Est GFR ( Amer) > 60, Est GFR (Non- Af Amer) > 60, Random Glucose 91, Calcium 8.6, Total Bilirubin 0.8, AST 24, ALT 25, Alkaline Phosphatase 73, Lactate Dehydrogenase 509, Total Creatine Kinase 147, Troponin I < 0.01, Total Protein 6.5, Albumin 3.9, Globulin 2.6, Albumin/ Globulin Ratio 1.5 12/08/16 21:50: PT 11.4, INR 1.06, APTT 25.3 - RAD Interpretation Radiology Orders: 12/08/16 21:36 CHEST PORTABLE [RAD] Stat - EKG Interpretation EKG Interpretation (Text): EKG: Ordered, reviewed, and independently interpreted the EKG. Rate : 86 BPM Rhythm : NSR Interpretation : Comparison : No acute change from previous EKG on 10/11/2016. Interpreted by ED Physician: Yes Type: 12 lead EKG - Medication Orders Current Medication Orders: Discontinued Medications Aspirin (Aspirin) 325 mg PO ONCE STA Stop: 12/09/16 00:33 Last Admin: 12/09/16 00:45 Dose: 325 mg - Dinoibe Statement The provider has reviewed the documentation as recorded by the Dinoibida Chambers All medical record entries made by the Serafin were at my direction and personally dictated by me. I have reviewed the chart and agree that the record accurately reflects my personal performance of the history, physical exam, medical decision making, and the department course for this patient. I have also personally directed, reviewed, and agree with the discharge instructions and disposition. Disposition/Present on Arrival - Present on Arrival Any Indicators Present on Arrival: No History of DVT/PE: Yes History of Uncontrolled Diabetes: No Urinary Catheter: No History of Decub. Ulcer: No History Surgical Site Infection Following: None - Disposition Have Diagnosis and Disposition been Completed?: Yes Diagnosis: Chest pain Disposition: HOSPITALIZED Disposition Time: 00:32 Patient Plan: Observation Patient Problems: Current Active Problems Problem Status Onset Chest pain Acute Condition: STABLE Discharge Instructions (ExitCare): Chest Pain (ED) Referrals: Asif Welch MD [Primary Care Provider] - Follow up with primary Forms: [employer] ([place])
[2016-12-08 22:07] LABS: HEMATOCRIT 30.9 % (42.0-52.0); MEAN CELL VOLUME 96.9 fl (80.0-105.0); MEAN CORPUSCULAR HEMOGLOBIN 32.9 pg (25.0-35.0); MEAN PLATELET VOLUME 9.3 fl (7.0-11.0); RED CELL DISTRIBUTION WIDTH 13.5 % (11.5-14.5)
[2016-12-08 22:13] LABS: ALB/GLOB RATIO 1.5 (1.1-1.8); ALKALINE PHOSPHATASE 73 U/L (38-126); ALT/SGPT 25 U/L (7-56); AST/SGOT 24 U/L (17-59); BILIRUBIN,TOTAL 0.8 mg/dL (0.2-1.3); BLOOD UREA NITROGEN 13 mg/dL (7-21); CALCIUM 8.6 mg/dL (8.4-10.5); CARBON DIOXIDE 28 mmol/L (21-33); CHLORIDE 106 mmol/L (98-107); GFR AFRICAN-AMERICAN > 60; GLUCOSE,RANDOM 91 mg/dL (70-110); INR 1.06 (0.93-1.08); PARTIAL THROMBOPLASTIN TIME 25.3 Seconds (23.7-30.8); POTASSIUM 3.8 mmol/L (3.6-5.0); SODIUM 145 mmol/L (132-148); TOTAL PROTEIN 6.5 g/dL (5.8-8.3)
[2016-12-08 22:29] LABS: TROPONIN I < 0.01 ng/mL
--- NOTE | 2016-12-08 23:45 | RAD ---
EXAM: XR Chest, 1 View CLINICAL HISTORY: 66 years old, male; Pain; Chest pain TECHNIQUE: Frontal view of the chest. COMPARISON: DX - CHEST PORTABLE 10/11/2016 5:27:17 PM FINDINGS: Persistent lesion of the left hemidiaphragm, with adjacent compressive atelectasis (unchanged from 10/11/2016). The remainder of the cardiomediastinal silhouette is otherwise unremarkable. The remainder of the lungs are otherwise clear. No subdiaphragmatic free air or pneumothorax. The trachea is midline. IMPRESSION: Stable radiographic evaluation of the chest, without focal infiltrate or effusion.
[2016-12-09] MEDS ORDERED: Albuterol-Ipratrop 3 mg / 0.5 (3 ml) UD IH PRN (00:37)
[2016-12-09] MEDS: Insulin Reg-LOW-Coverage SC SCH ×4 (08:07→21:35)
[2016-12-09 08:22] VITALS: O2SAT 98
[2016-12-09] MEDS: IMATINIB 400 MG PO SCH (09:49)
[2016-12-09] MEDS ORDERED: IMATINIB MESYLATE 400 MG PO SCH (10:00)
[2016-12-09 11:12] LABS: TROPONIN I 0.02 ng/mL
--- NOTE | 2016-12-09 11:41 | HP ---
CHIEF COMPLAINT AND HISTORY OF PRESENT ILLNESS: This is a 66-year-old male who has come in to the hospital with complaints of right-sided chest pain. The patient states that started overnight, he was concerned about heart issues because he had a stent in the past, so he came in for further evaluation. The patient denies any weakness in the arms or legs. He has a history of hypertension, coronary artery disease. He has also chronic wound in the right leg that has been treated by podiatry. No headache or dizziness. No nausea. No vomiting. No dysuria or frequency. No weakness in the arms or legs. REVIEW OF SYSTEMS: All other review of symptoms are within normal limits except as mentioned. ALLERGIES: NO KNOWN DRUG ALLERGIES. HOME MEDICATIONS: Metformin, acarbose, Crestor, Lasix, Plavix, potassium, imatinib, aspirin and omeprazole. PAST MEDICAL HISTORY: 1. Diabetes type 2. 2. Morbid obesity. 3. Hypertension. 4. Cholelithiasis. 5. Chronic venous ulcers. SOCIAL HISTORY: The patient denies smoking or drinking alcohol. FAMILY HISTORY: Noncontributory. PHYSICAL EXAMINATION: VITAL SIGNS: Temperature is 98.3, pulse of 96, blood pressure 131/50, respirations 18, O2 saturation 94%. Height is 6 feet 2 inches, weight is 315 pounds, BMI is 40.4. GENERAL: The patient lying in bed, uncomfortable, and in no acute distress. HEENT: Atraumatic and normocephalic. Anicteric sclerae. Moist mucosa. Dupo conjunctivae. No oral lesions. NECK: No JVD, anterior and posterior adenopathy, thyromegaly, or bruits. CARDIOVASCULAR: S1 and S2 regular. No murmur, rubs, or gallop. LUNGS: Clear to auscultation bilaterally. No wheezes, rales, or rhonchi. ABDOMEN: Bowel sounds are positive. Soft, nontender and nondistended. No hepatosplenomegaly. No rebound and no guarding NEUROLOGIC: No facial asymmetry. Tongue is midline. No uvula deviation. Power is 5/5 upper extremity and lower extremity. Sensation intact in upper extremity and lower extremity. PSYCHIATRIC: He is awake, alert and oriented x3. No anxiety or depression. He has normal affect. GENITOURINARY: No CVA tenderness. VASCULAR: 2+ pulses in the carotid pulses and pedal pulses. SKIN: No erythema or nodules SPINE: Shows normal curvature. EXTREMITIES: In the right leg, there is 1+ edema. There is dressing in place from chronic ulcer. LABORATORY DATA: Hemoglobin is 10.5. INR is 1.06. Creatinine is 1.0 with a troponin of 0.01. Chest x-ray shows no infiltrates. ASSESSMENT: 1. Chest pain. 2. Diabetes type 2. 3. Morbid obesity with a body mass index of 40. 4. Hypertension. 5. Cholelithiasis. 6. Chronic venous ulcers. PLAN: The patient is currently comfortable. He has chest pain. He does have a history of coronary artery disease and a stent placed. He has been compliant with medications. The patient has been on aspirin, Plavix, which will be continued. Home medications reviewed. He is going to continue with insulin. He also has a history of CLL, he is on imatinib. The patient is going to continue with his cholesterol medication. I have asked Dr. Gunderson to see the patient. I did speak to Dr. Gunderson regarding the case. The patient had an EKG done shows sinus rhythm at 86, no ST-T changes. If the patient's troponin is normal, we will most likely discharge home and have him to follow up with Dr. Gunderson as an outpatient. Condition is stable. Activities increase as tolerated. Asif Welch MD
[2016-12-09 14:35] VITALS: BMI 42.3
--- NOTE | 2016-12-09 15:48 | CARD ---
APPROVED REPORT EKG Measurement Heart [id number] VA 158P57 [id number] <Conclusion> Normal sinus rhythm Normal ECG
--- NOTE | 2016-12-09 19:23 | CARD ---
APPROVED REPORT EXAM: Two-dimensional and M-mode echocardiogram with Doppler and color Doppler. INDICATION Chest Pain LVFX 2D DIMENSIONS Left Atrium (2D)4.9 (1.6-4.0cm)IVSd1.3 (0.7-1.1cm) LVDd5.0 (3.9-5.9cm)PWd1.4 (0.7-1.1cm) LVDs3.2 (2.5-4.0cm)FS (%) 35.9 % LVEF (%)65.3 (>50%) M-Mode DIMENSIONS Aortic Root3.60 (2.2-3.7cm)Aortic Cusp Exc.2.00 (1.5-2.0cm) Aortic Valve AoV Peak Mztxfjxr136.0cm/Calos Peak GR.14mmHgLVOT Peak Uqzllaul661.0cm/s LVOT VTI27.40cm Mitral Valve MV E Dsdvtako80.9cm/sMV A Qhzoaard616.0cm/sMV ZMG320ng E/A ratio0.8MVA (PHT)2.06cm2 TDI Lateral E' Peak V6.43cm/sE/Lateral E'13.7E/Medial E'0.0 Pulmonary Valve PV Peak Umqlrwil59.0cm/sPV Peak Grad.2mmHg Tricuspid Valve TR Peak Kkmwpayl455nz/sRAP YECMFVVD53wxKxQV Peak Gr.9mmHg [id number] LEFT VENTRICLE The left ventricle is normal size. There is mild concentric left ventricular hypertrophy. The left ventricular function is normal. EF-65% There is normal LV segmental wall motion. Transmitral Doppler flow pattern is Grade III-reversible restrictive diastolic dysfunction. No left ventricle thrombus noted on this study. There is no ventricular septal defect visualized. There is no left ventricular aneurysm. RIGHT VENTRICLE The right ventricle is mildly dilated. There is normal right ventricular wall thickness. Systolic function is mildly reduced. ATRIA The left atrium is mildly dilated. The right atrium is borderline dilated. The interatrial septum is intact with no evidence for an atrial septal defect. AORTIC VALVE The aortic valve is calcified but opens well. The aortic valve is moderately sclerotic. Trivial AR Aortic Sclerosis Vs Mild As There is no aortic valvular vegetation. MITRAL VALVE The mitral valve is thickened but opens well. Trivial MR There is no mitral valve stenosis. There is no evidence of mitral valve prolapse. TRICUSPID VALVE The tricuspid valve leaflets are thickened , but open well. There is trace tricuspid regurgitation.RVSP-19 mmof hg. There is no tricuspid valve stenosis. There is no tricuspid valve prolapse or vegetation. PULMONIC VALVE The pulmonic valve is mildly thickened. There is trivial pulmonic valvular regurgitation. There is no pulmonic valvular stenosis. GREAT VESSELS The aortic root is normal in size. The ascending aorta is normal in size. The pulmonary artery is normal. The IVC is normal in size and collapses >50% with inspiration. PERICARDIAL EFFUSION There is no pleural effusion. Trivial PE <Conclusion> The left ventricle is normal size. There is mild concentric left ventricular hypertrophy. The left ventricular function is normal. EF-65% Trivial AR Aortic Sclerosis Vs Mild As Trivial MR There is trace tricuspid regurgitation.RVSP-19 mmof hg. The IVC is normal in size and collapses >50% with inspiration. Trivial PE
[2016-12-09 20:53] LABS: TROPONIN I < 0.01 ng/mL
[2016-12-10 07:04] LABS: BASO # 0.02 K/mm3 (0.0-2.0); BASO % 0.3 % (0.0-3.0); EOS # 0.2 (0.0-0.7); GRAN # 4.34 (1.4-6.5); GRAN % 73.2 % (50.0-68.0); HEMATOCRIT 33.6 % (42.0-52.0); LYMPH # 0.8 (1.2-3.4); LYMPH % 14.2 % (22.0-35.0); MEAN CELL VOLUME 96.6 fl (80.0-105.0); MEAN CORPUSCULAR HEMOGLOBIN 32.5 pg (25.0-35.0); MEAN CORPUSCULAR HGB CONC 33.6 g/dl (31.0-37.0); MEAN PLATELET VOLUME 9.7 fl (7.0-11.0); MONO # 0.5 (0.1-0.6); MONO % 8.3 % (1.0-6.0); WHITE BLOOD COUNT 5.9 10^3/ul (4.5-11.0)
[2016-12-10 07:23] LABS: ALB/GLOB RATIO 1.3 (1.1-1.8); ALKALINE PHOSPHATASE 70 U/L (38-126); ALT/SGPT 37 U/L (7-56); AST/SGOT 21 U/L (17-59); BILIRUBIN,TOTAL 0.6 mg/dL (0.2-1.3); BLOOD UREA NITROGEN 8 mg/dL (7-21); CARBON DIOXIDE 32 mmol/L (21-33); CHLORIDE 105 mmol/L (95-110); CHOLESTEROL 58 mg/dL (130-200); GFR AFRICAN-AMERICAN > 60; GLUCOSE,RANDOM 91 mg/dL (70-110); MAGNESIUM 1.8 mg/dL (1.7-2.2); PHOSPHOROUS 3.1 mg/dL (2.5-4.5); POTASSIUM 4.2 mmol/L (3.6-5.0); SODIUM 145 mmol/L (132-148); TOTAL PROTEIN 6.5 g/dL (5.8-8.3)
[2016-12-10] MEDS: Insulin Reg-LOW-Coverage SC SCH ×2 (08:30→12:17)
--- NOTE | 2016-12-10 08:30 | CON ---
DATE: 12/09/2016 REASON FOR CONSULTATION: Followup chest pain, history of coronary artery disease, history of stent in the circumflex on 12/16/2013, admitted for chest pain, rule out unstable angina. BRIEF CLINICAL HISTORY: This is a 66-year-old male with past medical history significant for morbid obesity, hypertension, hyperlipidemia, diabetes, chronic venous ulcer and stasis, history of coronary artery disease, status post PTCA on 12/16/2013 of the circumflex. Recent stress test in March is negative, came in with like a muscle is pulled on the right side, sometimes it goes to the left side also and feels spasm. Denies any chest pain. No dyspnea on exertion or angina on exertion. PAST MEDICAL HISTORY: Significant for DVT in 2013, history of diabetes, hypertension, hyperlipidemia, morbid obesity, coronary artery disease, status post PTCA of the circumflex, 12/16/2013. At that time, the cardiac catheterization revealed moderate disease in LAD and RCA. SOCIAL HISTORY: Denies smoking. Denies any history of alcohol abuse. CURRENT MEDICATIONS: Metformin, acarbose, Crestor, Lasix, Plavix, potassium, aspirin and omeprazole. PREVIOUS CARDIAC WORKUP: As follows, the patient had a cardiac catheterization, 12/16/2013 that revealed one vessel critical disease, mid circumflex 80% stenosis, status post PTCA, moderate disease in mid LAD and distal RCA. Ejection fraction 55%, successful PTCA with drug-eluting stent on 12/16/2013. The patient had echocardiography on 12/03/2013 that showed ejection fraction of 50 to 55%, trace aortic regurgitation, trace mitral regurgitation, trace tricuspid regurgitation, RV systolic pressure of 18. The patient had repeat stress test done in the beginning of the year on 03/21/2016 that showed normal with myocardial perfusion study. Ejection fraction 65%, normal compared to the last study on 12/03/2013, previously noted defect is not apparent on the current study. After the first stress, the patient underwent PTCA of circumflex dated 12/03/2013, a stress test, 12/16/2013 the patient had a cardiac catheterization with a stent on the circumflex, which completely resolved in the most recent stress test, dated 03/21/2016. REVIEW OF SYSTEMS: As per HPI. PHYSICAL EXAMINATION: VITAL SIGNS: As follows, temperature afebrile, heart rate 70, blood pressure 154/86. HEENT: PERRLA intact. NECK: Supple. No carotid bruits. No thyromegaly. CHEST: Clear to auscultation. HEART: S1 and S2 regular. ABDOMEN: Soft. EXTREMITIES: Clubbing and cyanosis negative. LABORATORY DATA: Blood workup as follows, WBC 18, hemoglobin 10.9, hematocrit 30.9, platelet count 180. Chemistry shows sodium 145, potassium 3.8, chloride 106, carbon dioxide 28, anion gap of 15, BUN 13, creatinine 1.0. Troponin 0.01 x2 negative. IMPRESSION: Very atypical chest pain. EKG shows normal sinus, no acute ST-T changes noted, but given the multiple risk factor of coronary artery disease, suggest followup CPK, troponin. If CPK, troponin remains flat, we will do stress test because of multiple risk factors. If the troponin we will proceed with cardiac catheterization. We will discuss with the Dr. Karimi. Thank you Dr. Karimi for providing us the opportunity in taking care of the patient, Emeka Handy. We will follow with you. Jason Gunderson MD
[2016-12-10] MEDS ORDERED: Aminophylline 25 mg/ml Inj ONE (08:37)
--- NOTE | 2016-12-10 10:33 | DS ---
DATE: 12/10/2016 SUBJECTIVE: The patient has no complaints of any chest pain. No shortness of breath or headache. He is initially admitted to the hospital because he was having atypical chest pain on the right side. He was seen by Dr. Gunderson and he wanted to follow the patient closely for any further symptoms. The patient has an echocardiogram done that showed EF of 65%. LV is normal in size. There is mild concentric LVH. He has troponins, which are negative. PHYSICAL EXAMINATION: VITAL SIGNS: Temperature is 98.1, pulse is 71, blood pressure is 130/70, respirations 20, and O2 saturations 98%. GENERAL: The patient is lying in bed, flat, comfortable. HEENT: No oral lesion. Anicteric sclerae. Moist mucosa. NECK: No JVD, adenopathy, or thyromegaly. CARDIOVASCULAR: S1 and S2, regular. No murmurs, rubs, or gallops. LUNGS: Clear to auscultation bilaterally. No wheeze, rales, or rhonchi. ABDOMEN: Bowel sounds are positive, soft, nontender and nondistended. EXTREMITIES: No cyanosis, clubbing or edema. Right leg, it is wrapped. ASSESSMENT: 1. Chest pain, atypical, resolved. 2. Diabetes type 2. 3. Morbid obesity with body mass index of 40. 4. Hypertension. 5. Cholelithiasis. 6. Chronic venous ulcers in the right leg. PLAN: The patient is currently comfortable. He is on atorvastatin for his dyslipidemia. He is on Plavix daily. He is going to continue with aspirin. He is on Lasix for his edema. He is on acarbose for his diabetes. He is also on insulin sliding scale. I held some of his diabetes medications his contrast. troponin, which are negative. If he is cleared by cardiology, we will discharge the patient home. Condition is stable. Activities increase as tolerated. Asif Welch MD
[2016-12-10] MEDS: IMATINIB 400 MG PO SCH (11:37)
[2016-12-10 12:21] VITALS: BP 142/87; PULSE 78; RESP 18; TEMP 98.5
--- NOTE | 2016-12-10 12:30 | PN ---
DATE: 12/10/2016 REASON FOR THE CONSULTATION: Followup chest pain, history of coronary artery disease, history of a stent in the circumflex 12/16/2013, admitted with chest pain, rule out unstable angina. SUBJECTIVE: The patient denies any further episode of chest, any shortness of breath, any palpitation. OBJECTIVE: GENERAL: Lying flat in the bed, awaiting for a stress test. Examination as follows: VITAL SIGNS: Temperature afebrile, heart rate , blood pressure 130/70. HEENT: PERRLA. Extraocular muscles intact. NECK: Supple. No carotid bruit. No thyromegaly. CHEST: Clear to auscultation. HEART: S1 and S2 regular. ABDOMEN: Soft. EXTREMITIES: Clubbing and cyanosis negative. LABORATORY DATA: Blood workup as follows: WBC 5.9, hemoglobin 11.3, hematocrit 33.6, and platelet count 186. Chemistry shows sodium 145, potassium 4.2, chloride 105, carbon dioxide 32, anion gap of 12, BUN 8, creatinine 0.9. TSH 2.5. Total protein 6.5, albumin 3.7, albumin and globulin ratio 1.3. Triglycerides 75, cholesterol 58, LDL less than 30, HDL 29. Troponin 0.01, 0.02 and the last one is 0.01. IMPRESSION: A 66-year-old morbidly obese male, body mass index of 42 kg/m2, history of coronary artery disease, status post a stent in the past to the circumflex on 12/16/2013, admitted with atypical chest pain, hard to predict because the patient was complaining of chest pain on the right, sometimes he states it across the chest. He is a very poor historian, but so far troponin remains negative. The patient is scheduled for a stress test because of multiple risk factors and last stress test was negative dated 03/21/2016 at the beginning and previous difficulties resolved. PLAN: To continue aggressive control of blood pressure and a stress test today. It will be 2 days protocol because of the body habitus and after the stress test, the patient will be discharged, followup result as an outpatient because the patient is coming tomorrow for a stress test. The patient had echocardiography done yesterday that shows a normal left ventricle size and LV function was 65%, trivial aortic regurgitation, aortic trivial MR, trace TR, RV systolic pressure 19, essentially normal echo. Further recommendation after the stress test. We will follow with you. Thank you Dr. Karimi for providing us the opportunity in taking care of the patient, Emeka Handy. We will follow with you. Jason Gunderson MD
--- NOTE | 2016-12-11 15:47 | CARD ---
APPROVED REPORT Protocol: LEXISCAN Test Type: Lexiscan Sestamibi Stress Test Attending Physician: Dr. Jason Gunderson Referring Physician: Dr. Asif Welch Test Indications: Chest Pain Height:6 ft 2 in Weight:330lbs Medications: Precose, Aspirin, Lipitor, Plavix, Lasix, Imatbib, Insulin Medical History: 66 y/o male with a history of htn, diabetes, s/p cardiac cath with 1 stent placed Target HR: 156 bpm Resting ECG: normal Resting Heart Rate: 73 bpm Resting Blood Pressure: 144/64mmHg Submaximum (85%): 133 bpm PROCEDURE Pharmacologic stress testing was performed using 0.4mg per 5ml of regadenoson given intravenously over 7-10 seconds. Reversal agent aminophyline 150 mg, given intravenously for Chest Pain. POST EXERCISE Reason for Termination: Protocol completed Target HR: No Max HR: 84 bpm 64% of Maximum Predicted HR: 156 bpm Exercise duration: 03:54 min:sec, 0 Stage Exercise capacity: 1.0METs Max Blood Pressure: 150/58mmHg Blood Pressure response to exercise: normal resting BP - appropriate response Heart Rate response to exercise: appropriate Chest Pain: No, none Angina index: 0 Arrhythmia: No, none ST Change: No, none Deviation: 0 mm TEST SUMMARY [id number]. INFUSIONDOSE 101:[id number]/.0. INFUSIONDOSE 201:[id number]/.0. INFUSIONDOSE 301:[id number]/.0. INFUSIONDOSE 400:[id number]/.0. [id number]/58.0. INTERPRETATION Stress EKG Conclusion: Negative IV Lexiscan, Nuclear scan to follow. Signed by Jason Gunderson Electronically Approved: 12/10/2016 10:12:13 EXAM: Myocardial Perfusion STRESS/REST 2DAYS Stress Test Type: Pharmacologic Imaging Protocol Rest Spect myocardial perfusion imaging was performed in supine position 60 minutes following the injection of 30.5 mCi of Tc-99 Myoview. At peak stress, the patient was injected intravenously with 30.9mCi of Tc-99 tetrofosmin after an infusion time of 0 minutes and 10 seconds. Gated Stress Spect was performed 65 minutes after intravenous Tc-99 Myoview injection. The images were gated to evaluate regional wall motion and calculate ventricular ejection fraction.Images were reconstructed using backfilter projection method in short horizontal and verticle long axis. Spect slices were generated. LV Perfusion The quality of the study is good. The left ventricle is mildly enlarged in size. The right ventricle is unremarkable. The lung uptake is normal. The distribution of tracer reveals mildly and diffusely decreased perfusion in the inferior wall on the stress study. The remainder of the LV myocardium is unremarkable. The rest myocardial perfusion study shows no significant change. Wall Motion Wall motion study shows good contractility of the left ventricle. LVEF = 55%. Conclusion 1. Essentially normal SPECT myocardial perfusion study. 2. Fixed, inferior defect is most likely due to diaphrgmatic attenuation. 3. Normal gated wall motion and thicknening of the left ventricle. 4. In comparison with the last study of 03/30/2016, there is no significant change.
== END 2016-12-10 13:45 | disposition home or self-care (01) ==
LOC: ED 20:40 → ERH 12-09 00:34 → INTOOBSV 12-09 01:05 → ERH 12-09 01:05 → UNDOADMOB 12-09 01:05 → ERH 12-09 07:54 → CCU 12-09 08:31 → 2RSO 12-09 18:34 → CCU 12-09 18:34 → UNDODISOB 12-10 13:45
PROVIDERS: ADMIT Internal Medicine Nephrology; ATTEND Internal Medicine Nephrology
DX: R07.89 Other chest pain (principal); I25.10 Atherosclerotic heart disease of native coronary artery without angina pectoris; I10 Essential (primary) hypertension; E78.5 Hyperlipidemia, unspecified; E11.622 Type 2 diabetes mellitus with other skin ulcer; L97.919 Non-pressure chronic ulcer of unspecified part of right lower leg with unspecified severity; E11.51 Type 2 diabetes mellitus with diabetic peripheral angiopathy without gangrene; K80.20 Calculus of gallbladder without cholecystitis without obstruction; E66.01 Morbid (severe) obesity due to excess calories; Z68.41 Body mass index [BMI] 40.0-44.9, adult; Z86.718 Personal history of other venous thrombosis and embolism; Z95.5 Presence of coronary angioplasty implant and graft; Z79.02 Long term (current) use of antithrombotics/antiplatelets; Z79.82 Long term (current) use of aspirin
CPT/HCPCS: 36415; 71010; 80053; 80061; 82550; 82948; 83036; 83615; 83735; 83880; 84100; 84443; 84484; 85025; 85027; 85610; 85730; 87081; 93005; 93017; 93306; 99285; G0378; J0280; J2785

== ENCOUNTER 2016-12-16 14:13 | Emergency (ER) | payer MEDICARE ==
[2016-12-16 14:21] VITALS: BMI 40.4
[2016-12-16 14:25] VITALS: RESP 18; TEMP 98.4
--- NOTE | 2016-12-16 16:57 | RAD ---
HISTORY: chest pain COMPARISON: Portable chest 12/08/2016. FINDINGS: LUNGS: Inspiratory volume appears diminished. Borderline patchy infiltrate medial right base. Elevation left hemidiaphragm is again appreciated. No definite left-sided infiltrate. PLEURA: No significant pleural effusion identified, no pneumothorax apparent. CARDIOVASCULAR: Normal. OSSEOUS STRUCTURES: No significant abnormalities. VISUALIZED UPPER ABDOMEN: Normal. OTHER FINDINGS: None. IMPRESSION: Borderline right medial basilar infiltrate though this is not definite. Stable elevated left hemidiaphragm.
--- NOTE | 2016-12-16 17:08 | ED PDOC ---
Arrival/HPI - General Chief Complaint: Cough, Cold, Congestion Time Seen by Provider: 12/16/16 14:40 Historian: Patient - History of Present Illness Narrative History of Present Illness (Text): 12/16/16 17:06 66 yo M with pmh of CAD w/ stents, DM and HTN, reports several day h/o intermittent pain under the ribs radiating to the mid back and flanks, mostly in the R side described muscle strain, worse with certain movements, coughing, and deep breathing, not related with exertion. Of note, patient admits that he was recently admitted here similar symptoms, had a stress test, which he thinks was negative. Reports that the pain he has today is similar to the pain he had when he was admitted. Otherwise: (-) palpitations, (-) diaphoresis, (-) dyspnea , (+) dry cough, (-) ripping or tearing quality, (-) exertional component, (-) dizziness, (-) syncope, (-) nausea, (-) vomiting, (-) abdominal pain, (-) urinary symptoms, (-) calf swelling/pain, (-) neuro deficits. PMD [employer] Neptali Past Medical History - Provider Review Nursing Documentation Reviewed: Yes - Infectious Disease Hx of Infectious Diseases: None - Tetanus Immunization Tetanus Immunization: Unknown - Cardiac Hx Hypertension: Yes Hx Peripheral Vascular Disease: Yes - Pulmonary Hx Respiratory Disorders: Yes Hx Pneumonia: Yes (1995) Other/Comment: smoker / Lobectomy - Neurological Hx Neurological Disorder: No - HEENT Hx HEENT Disorder: No - Renal Hx Renal Disorder: No - Endocrine/Metabolic Hx Endocrine Disorders: Yes Hx Diabetes Mellitus Type 2: Yes - Hematological/Oncological Hx Blood Disorders: No - Integumentary Hx Dermatological Disorder: Yes Other/Comment: ULCER RIGHT LEG - Musculoskeletal/Rheumatological Hx Falls: Yes - Gastrointestinal Hx Gastrointestinal Disorders: No - Genitourinary/Gynecological Hx Genitourinary Disorders: No - Psychiatric Hx Psychophysiologic Disorder: No Hx Depression: No Hx Substance Use: No - Past Surgical History Past Surgical History: No Previous - Surgical History Hx Cardiac Catheterization: Yes Hx Coronary Stent: Yes (x1) Other/Comment: LOWER LEFT LOBECTOMY - Anesthesia Hx Anesthesia: Yes Hx Anesthesia Reactions: No Hx Malignant Hyperthermia: No - Suicidal Assessment Feels Threatened In Home Enviroment: No Family/Social History - Physician Review Nursing Documentation Reviewed: Yes Family/Social History: No Known Family HX Smoking Status: Former Smoker Hx Alcohol Use: Yes (socially) Frequency of alcohol use: Socially Hx Substance Use: No Hx Substance Use Treatment: No Allergies/Home Meds Allergies/Adverse Reactions: Allergies No Known Allergies Allergy (Verified 12/08/16 20:47) Home Medications: Home Meds Medication Instructions Recorded Confirmed Metformin HCl 1,000 mg PO BID 03/15/12 12/16/16 Acarbose 50 mg PO TID 12/02/13 12/16/16 Rosuvastatin Calcium [Crestor] 10 mg PO HS 12/02/13 12/16/16 Furosemide [Lasix] 20 mg PO DAILY 07/14/15 12/16/16 Clopidogrel [Plavix] 75 mg PO DAILY 03/05/16 12/16/16 Potassium Chloride [Klor-Con 10 meq PO DAILY 03/05/16 12/16/16 Sprinkle] Imatinib Mesylate 400 mg PO DAILY 03/20/16 12/16/16 Aspirin [Lo-Dose Aspirin EC] 1 tab PO DAILY 05/16/16 12/16/16 Omeprazole [Omeprazole] 20 mg PO BID 05/16/16 12/16/16 Review of Systems - Review of Systems Constitutional: Normal. absent: Fatigue, Weight Change, Fevers Respiratory: Normal, Cough. absent: SOB, Sputum Cardiovascular: Normal, Chest Pain. absent: Palpitations, Edema Musculoskeletal: Normal. absent: Arthralgias, Back Pain, Neck Pain Skin: Normal. absent: Rash, Pruritis, Skin Lesions Neurological: Normal. absent: Headache, Dizziness, Focal Weakness Physical Exam - Physical Exam Narrative Physical Exam (Text): 12/16/16 17:14 GENERAL APPEARANCE: Patient is awake, alert, oriented x 3, in no acute distress. Laying in bed comfortably. SKIN: Warm, dry; (-) cyanosis. EYES: (-) conjunctival pallor. ENMT: Mucous membranes moist. NECK: (-) tenderness, (-) stiffness, (-) lymphadenopathy, (-) JVD. CHEST AND RESPIRATORY: (-) rash, (-) chest wall tenderness. Lungs: (-) rales , (-) rhonchi, (-) wheezes, (-) rub; breath sounds equal bilaterally. HEART AND CARDIOVASCULAR: (-) irregularity; (-) murmur, (-) gallop, (-) rub. ABDOMEN AND GI: Soft; (-) distention, (-) tenderness, (-) palpable pulsatile mass. EXTREMITIES: (-) deformity; (-) edema, (-) calf tenderness. (+) distal pulses. NEURO AND PSYCH: Mental status as above. Cranial nerves grossly intact; strength symmetric. Vital Signs Temp Pulse Resp BP Pulse Ox 12/16/16 22:22 70 18 128/70 97 12/16/16 19:45 73 18 128/55 L 99 12/16/16 16:44 78 18 148/75 99 12/16/16 14:24 98.4 F 98 H 18 135/77 96 Medical Decision Making ED Course and Treatment: 12/16/16 17:14 66 yo M with pmh of CAD w/ stents, DM and HTN, reports several day h/o intermittent pain under the ribs radiating to the mid back and flanks, mostly in the R side described muscle strain. Previous medical records reviewed : Patient was seen in this emergency room on , was evaluated for chest pain. During that visit the patient had EKG, which shoed NSR at [address]-segment elevations or depressions, no T-wave inversions, normal intervals. CXR: Stable radiographic evaluation of the chest, without focal infiltrate or effusion. He was admitted, during his admission, it was documented by Dr. Gunderson, that the patient had last normal stress test on 03/21. An echo was done on 12/09/16 - showed normal LV size with LV function of 65%. He then had a negative IV lexiscan stress test on 12/10/16. DDx : pneumonia, r/o PE, musculoskeletal CP Plan: -- Labs -- IV -- Urinalysis -- EKG -- CXR 12/16/16 17:00 EKG: NSR at 84 bpm, (-) acute ST changes, as read by SENAIT. CXR : possible RML / RLL infiltrate, elevated L hemidiaphragm, compared to previous study done on 12/08/16, as read by SENAIT CXR : (reading by radiologist) FINDINGS: LUNGS: Inspiratory volume appears diminished. Borderline patchy infiltrate medial right base. Elevation left hemidiaphragm is again appreciated. No definite left- sided infiltrate. PLEURA: No significant pleural effusion identified, no pneumothorax apparent. CARDIOVASCULAR: Normal. OSSEOUS STRUCTURES: No significant abnormalities. VISUALIZED UPPER ABDOMEN: Normal. OTHER FINDINGS: None. IMPRESSION: Borderline right medial basilar infiltrate though this is not definite. Stable elevated left hemidiaphragm. On reevaluation, patient is laying in bed comfortably in no acute distress. Patient reports no other complaints at this time. Repeat exam is unchanged, lungs clear to auscultation, cardiac regular rate and rhythm, repeat neuro exam shows no acute focal findings. VSS. 12/16/16 17:43 D-dimer is noted to be elevated, patient made aware. CT chest ordered to r/o PE. Patient returned from CT without any incident. Patient is sitting comfortably in no acute distress. Reports no SOB or chest pain at this time. VSS. CTA chest shows no PE. Diagnostic results d/w the patient in great detail. Notified of likely dx of chest pain, early pneumonia. Patient advised to follow up with primary care physician in 1-2 days without fail. Advised to take medication - zpak, as prescribed. Return to the emergency room at any time for any new or worsening symptoms. Patient states he fully agrees with and understands discharge instructions. States that he agrees with the plan and disposition. Verbalized and repeated discharge instructions and plan. I have given the patient opportunity to ask any additional questions. - Lab Interpretations Lab Results: 12/16/16 17:00 12/16/16 17:00 Lab Results 12/16/16 19:45: Urine Color Yellow, Urine Appearance Clear, Urine pH 5.5, Ur Specific Theresa >= 1.030, Urine Protein 30 H, Urine Glucose (UA) Negative, Urine Ketones 15 H, Urine Blood Negative, Urine Nitrate Negative, Urine Bilirubin Moderate H, Urine Urobilinogen 1.0 H, Ur Leukocyte Esterase Negative, Urine RBC 1 - 3, Urine WBC 5 - 10, Ur Epithelial Cells 3 - 4, Urine Bacteria Many, Hyaline Casts 0 - 2 12/16/16 17:00: Sodium 142, Potassium 4.1, Chloride 101, Carbon Dioxide 31, Anion Gap 14, BUN 14, Creatinine 1.2, Est GFR ( Amer) > 60, Est GFR (Non- Af Amer) > 60, Random Glucose 85, Calcium 9.0, Total Bilirubin 0.5, AST 21, ALT 27, Alkaline Phosphatase 77, Lactate Dehydrogenase 487, Total Creatine Kinase 88 , Troponin I < 0.01, Total Protein 6.5, Albumin 4.0, Globulin 2.4, Albumin/ Globulin Ratio 1.7 12/16/16 17:00: PT 11.7, INR 1.08, APTT 24.9, D-Dimer, Quantitative 1.73 H 12/16/16 17:00: WBC 7.7 D, RBC 3.27 L, Hgb 10.8 L, Hct 31.5 L, MCV 96.3, MCH 33.0, MCHC 34.3, RDW 13.7, Plt Count 204, MPV 9.8, Gran % 74.9 H, Lymph % (Auto ) 13.2 L, [place] % (Auto) 8.4 H, Eos % (Auto) 3.1, Baso % (Auto) 0.4, Gran # 5.80 , Lymph # 1.0 L, [place] # 0.7 H, Eos # 0.2, Baso # 0.03 - RAD Interpretation Narrative RAD Interpretations (Text): 12/16/16 22:12 CTA chest : FINDINGS: Pulmonary arteries: No pulmonary embolism. Aorta: No thoracic aortic aneurysm. Lungs: No mass. No consolidation. Marked elevation of the left hemidiaphragm, with adjacent compressive atelectasis. Volume loss within the left hemithorax, with absence of the left lower lobe, likely postsurgical. Multiple subcentimeter cysts are present, with a upper lobe predominance. Pleural spaces: Trace bilateral pleural effusion. No pneumothorax. Heart: No cardiomegaly. No significant pericardial effusion. No evidence of right heart dysfunction. Bones: No acute fracture. Lymph nodes: No pathologically enlarged lymph nodes. IMPRESSION: No pulmonary embolism. Stable appearance of the pulmonary parenchyma, when compared to previous examination performed 10/11/2016. 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 Disposition/Present on Arrival - Present on Arrival Any Indicators Present on Arrival: No History of DVT/PE: No History of Uncontrolled Diabetes: No Urinary Catheter: No History of Decub. Ulcer: No History Surgical Site Infection Following: None - Disposition Have Diagnosis and Disposition been Completed?: Yes Diagnosis: Chest pain, Pneumonia Disposition: HOME/ ROUTINE Disposition Time: 22:00 Patient Plan: Discharge Condition: STABLE Discharge Instructions (ExitCare): Chest Pain (ED) Print Language: SAO TOMEAN Additional Instructions: Thank you for letting us take care of you today. You were treated for chest pain , pneumonia. The emergency medical care you received today was directed at your acute symptoms. If you were prescribed any medication, please fill it and take as directed. It may take several days for your symptoms to resolve. Return to the Emergency Department if your symptoms worsen, do not improve, or if you have any other problems. Please contact your doctor in 2 days for re-evaluation and follow up / or call one of the physicians/clinics you have been referred to that are listed on the Patient Visit Information form that is included in your discharge packet. Bring any paperwork you were given at discharge with you along with any medications you are taking to your follow up visit. Our treatment cannot replace ongoing medical care by a primary care provider (PCP) outside of the emergency department. Thank you for allowing the [facility] team to be part of your care today. Prescriptions: Azithromycin [Z-Dieter] 250 mg PO DAILY #6 tab Referrals: PCP,NO [Primary Care Provider] - Follow up with primary Forms: [employer] (Bhutanese)
[2016-12-16 17:23] LABS: BASO # 0.03 K/mm3 (0.0-2.0); BASO % 0.4 % (0.0-3.0); EOS # 0.2 (0.0-0.7); EOS % 3.1 % (1.5-5.0); GRAN # 5.8 (1.4-6.5); GRAN % 74.9 % (50.0-68.0); HEMATOCRIT 31.5 % (42.0-52.0); LYMPH % 13.2 % (22.0-35.0); MEAN CELL VOLUME 96.3 fl (80.0-105.0); MEAN CORPUSCULAR HGB CONC 34.3 g/dl (31.0-37.0); MEAN PLATELET VOLUME 9.8 fl (7.0-11.0); MONO # 0.7 (0.1-0.6); MONO % 8.4 % (1.0-6.0); RED CELL DISTRIBUTION WIDTH 13.7 % (11.5-14.5); WHITE BLOOD COUNT 7.7 10^3/ul (4.5-11.0)
[2016-12-16 17:24] LABS: ALB/GLOB RATIO 1.7 (1.1-1.8); ALKALINE PHOSPHATASE 77 U/L (38-126); ALT/SGPT 27 U/L (7-56); AST/SGOT 21 U/L (17-59); BILIRUBIN,TOTAL 0.5 mg/dL (0.2-1.3); BLOOD UREA NITROGEN 14 mg/dL (7-21); CARBON DIOXIDE 31 mmol/L (21-33); CHLORIDE 101 mmol/L (98-107); GFR AFRICAN-AMERICAN > 60; GLUCOSE,RANDOM 85 mg/dL (70-110); POTASSIUM 4.1 mmol/L (3.6-5.0); SODIUM 142 mmol/L (132-148); TOTAL PROTEIN 6.5 g/dL (5.8-8.3)
[2016-12-16 17:30] LABS: INR 1.08 (0.93-1.08); PARTIAL THROMBOPLASTIN TIME 24.9 Seconds (23.7-30.8)
[2016-12-16 17:31] LABS: D DIMER 1.73 mg/L FEU (0-0.50)
[2016-12-16 17:42] LABS: TROPONIN I < 0.01 ng/mL
[2016-12-16] MEDS ORDERED: Iohexol 350 MG/100 ML VIAL ONE ×2 (18:22→19:45)
[2016-12-16 19:59] LABS: PH,URINE 5.5 (4.7-8.0); URINE BILIRUBIN MODERATE (NEGATIVE); URINE BLOOD NEGATIVE (NEGATIVE); URINE GLUCOSE (UA) NEGATIVE (NEGATIVE); URINE KETONE 15 mg/dL (NEGATIVE); URINE LEUKOCYTE ESTERASE NEGATIVE Leu/uL (NEGATIVE); URINE PROTEIN 30 mg/dL (<30 mg/dL)
[2016-12-16 20:08] LABS: URINE APPEARANCE CLEAR (CLEAR); URINE COLOR YELLOW (YELLOW)
[2016-12-16 20:30] LABS: URINE BACTERIA MANY (NEG)
--- NOTE | 2016-12-16 21:17 | CT ---
EXAM: CT Angiography Chest With Intravenous Contrast CLINICAL HISTORY: 66 years old, male; Pain; Chest pain; Left-sided chest pain; Additional info: Chest pain, R/O pe TECHNIQUE: Axial computed tomographic angiography images of the chest with intravenous contrast using pulmonary embolism protocol. All CT scans at this facility use one or more dose reduction techniques, viz.: automated exposure control; ma/kV adjustment per patient size (including targeted exams where dose is matched to indication; i.e. head); or iterative reconstruction technique. MIP reconstructed images were created and reviewed. Coronal and sagittal reformatted images were created and reviewed. CONTRAST: 100 mL of OMNI administered intravenously. COMPARISON: CT - ANGIO CHEST PE PROTOCOL 10/11/2016 8:29:51 PM FINDINGS: Pulmonary arteries: No pulmonary embolism. Aorta: No thoracic aortic aneurysm. Lungs: No mass. No consolidation. Marked elevation of the left hemidiaphragm, with adjacent compressive atelectasis. Volume loss within the left hemithorax, with absence of the left lower lobe, likely postsurgical. Multiple subcentimeter cysts are present, with a upper lobe predominance. Pleural spaces: Trace bilateral pleural effusion. No pneumothorax. Heart: No cardiomegaly. No significant pericardial effusion. No evidence of right heart dysfunction. Bones: No acute fracture. Lymph nodes: No pathologically enlarged lymph nodes. IMPRESSION: No pulmonary embolism. Stable appearance of the pulmonary parenchyma, when compared to previous examination performed 10/11/2016.
[2016-12-16 22:23] VITALS: BP 128/70; PULSE 70; O2SAT 97
--- NOTE | 2016-12-17 09:44 | CARD ---
APPROVED REPORT EKG Measurement Heart [id number] <Conclusion> Normal sinus rhythm Normal ECG
== END 2016-12-16 22:23 | disposition home or self-care (01) ==
LOC: ED 14:13
DX: R07.9 Chest pain, unspecified (principal); J18.9 Pneumonia, unspecified organism
CPT/HCPCS: 71010; 71275; 80053; 81001; 82550; 83615; 84484; 85025; 85378; 85610; 85730; 87086; 93005; 99284; Q9967

== ENCOUNTER 2017-04-17 18:19 | Emergency (ER) | payer MEDICARE ==
[2017-04-17 18:25] VITALS: BMI 40.1
[2017-04-17 18:32] VITALS: RESP 18; TEMP 98.4
[2017-04-17] MEDS ORDERED: DiphenhydrAMINE 50 mg/ml Inj IVP STA (19:23)
--- NOTE | 2017-04-17 19:28 | ED PDOC ---
Arrival/HPI - General Chief Complaint: ENT Problem Time Seen by Provider: 04/17/17 19:12 Historian: Patient - History of Present Illness Narrative History of Present Illness (Text): 04/17/17 19:28 A 66 year old male, whose past medical history includes CML, GERD, presents to the emergency department for multiple complaints. Patient reports a sore throat for the past 3-4 days and chronic acid reflux. He notes sciatic pain for 1 day, which begins in his right lower back and radiates down to his groin and leg. Patient has not followed up with his PMD concerning these symptoms. Patient states he is "worried his appendix ruptured" which is causing his pain. Patient notes mild nausea and decrease PO intake but denies any fever, chills, vomiting , diarrhea, abdominal pain, chest pain, shortness of breath or any other complaints. Past Medical History - Provider Review Nursing Documentation Reviewed: Yes - Infectious Disease Hx of Infectious Diseases: None - Tetanus Immunization Tetanus Immunization: Unknown - Cardiac Hx Hypertension: Yes Hx Peripheral Vascular Disease: Yes - Pulmonary Hx Respiratory Disorders: Yes Hx Pneumonia: Yes (1995) Other/Comment: smoker / Lobectomy - Neurological Hx Neurological Disorder: No - HEENT Hx HEENT Disorder: No - Renal Hx Renal Disorder: No - Endocrine/Metabolic Hx Endocrine Disorders: Yes Hx Diabetes Mellitus Type 2: Yes - Hematological/Oncological Hx Blood Disorders: No - Integumentary Hx Dermatological Disorder: Yes Other/Comment: ULCER RIGHT LEG - Musculoskeletal/Rheumatological Hx Falls: Yes - Gastrointestinal Hx Gastrointestinal Disorders: No - Genitourinary/Gynecological Hx Genitourinary Disorders: No - Psychiatric Hx Psychophysiologic Disorder: No Hx Depression: No Hx Substance Use: No - Past Surgical History Past Surgical History: No Previous - Surgical History Hx Cardiac Catheterization: Yes Hx Coronary Stent: Yes (x1) Other/Comment: LOWER LEFT LOBECTOMY - Anesthesia Hx Anesthesia: Yes Hx Anesthesia Reactions: No Hx Malignant Hyperthermia: No - Suicidal Assessment Feels Threatened In Home Enviroment: No Family/Social History - Physician Review Nursing Documentation Reviewed: Yes Family/Social History: No Known Family HX, Unknown Family HX Smoking Status: Former Smoker Hx Alcohol Use: Yes (socially) Hx Substance Use: No Hx Substance Use Treatment: No Allergies/Home Meds Allergies/Adverse Reactions: Allergies No Known Allergies Allergy (Verified 12/08/16 20:47) Home Medications: Home Meds Medication Instructions Recorded Confirmed Metformin HCl 1,000 mg PO BID 03/15/12 04/17/17 Acarbose 50 mg PO TID 12/02/13 04/17/17 Rosuvastatin Calcium [Crestor] 10 mg PO HS 12/02/13 04/17/17 Furosemide [Lasix] 20 mg PO DAILY 07/14/15 04/17/17 Clopidogrel [Plavix] 75 mg PO DAILY 03/05/16 04/17/17 Potassium Chloride [Klor-Con 10 meq PO DAILY 03/05/16 04/17/17 Sprinkle] Imatinib Mesylate 400 mg PO DAILY 03/20/16 04/17/17 Aspirin [Lo-Dose Aspirin EC] 1 tab PO DAILY 05/16/16 04/17/17 Famotidine [Pepcid] 1 tab PO BID 04/17/17 04/17/17 Review of Systems - Physician Review All systems were reviewed & negative as marked: Yes - Review of Systems Constitutional: absent: Fevers, Night Sweats ENT: Sore Throat Respiratory: absent: SOB Cardiovascular: absent: Chest Pain Gastrointestinal: Nausea, Appetite Changes, Other (acid reflux). absent: Abdominal Pain, Diarrhea, Vomiting Musculoskeletal: Back Pain (right lower sciatic back pain radiating down groin and leg) Physical Exam Vital Signs Reviewed: Yes Vital Signs Temp Pulse Resp BP Pulse Ox 04/17/17 23:45 76 18 121/63 99 04/17/17 22:30 71 18 122/73 98 04/17/17 21:30 81 18 144/59 L 100 04/17/17 18:31 98.4 F 86 18 147/74 96 Temperature: Afebrile Blood Pressure: Normal Pulse: Regular Respiratory Rate: Normal Appearance: Positive for: Well-Appearing, Non-Toxic, Comfortable Pain Distress: None Mental Status: Positive for: Alert and Oriented X 3 - Systems Exam Head: Present: Atraumatic, Normocephalic Pupils: Present: PERRL Extroacular Muscles: Present: EOMI Conjunctiva: Present: Normal Mouth: Present: Moist Mucous Membranes Pharnyx: Present: Normal. No: ERYTHEMA, EXUDATE, TONSILS ENLARGED Neck: Present: Normal Range of Motion Respiratory/Chest: Present: Clear to Auscultation, Good Air Exchange. No: Respiratory Distress, Accessory Muscle Use Cardiovascular: Present: Regular Rate and Rhythm, Normal S1, S2. No: Murmurs Abdomen: Present: Normal Bowel Sounds. No: Tenderness, Distention, Peritoneal Signs Back: Present: Other (Mild tenderness to right sciatic notch. Patient notes pain to groing and leg with palpation to back.) Upper Extremity: Present: Normal Inspection. No: Cyanosis, Edema Lower Extremity: Present: Normal Inspection. No: Edema Neurological: Present: GCS=15, CN II-XII Intact, Speech Normal Skin: Present: Warm, Dry, Normal Color. No: Rashes Psychiatric: Present: Alert, Oriented x 3, Normal Insight, Normal Concentration Medical Decision Making ED Course and Treatment: 04/17/17 19:28 Impression: A 66 year old male with multiple complaints. Patient reports sore throat, acid reflux, sciatic pain, nausea and decrease PO intake. Plan: -- Neck CT -- Lumbar spine CT -- Chest xray -- EKG -- Labs -- Rapid strep -- Benadryl, Toradol, Reglan and Zofran -- Reassess and disposition Progress Notes: EKG shows NSR at 82 BPM with normal intervals, normal axis. Interpreted by me. CT Neck Without Intravenous Contrast EXAM DATE/TIME: 04/17/2017 7:23 PM Dictated and Authenticated by: Richy Goodson MD 04/17/2017 8:56 PM Eastern Time ([place] & [place]) IMPRESSION: 1. There is normal aeration of the pharynx, without a foreign body. 2. Paranasal sinus disease is noted above. 3. Incidental/non-acute findings are described above. Thank you for allowing us to participate in the care of your patient. CT Lumbar Spine Without Intravenous Contrast EXAM DATE/TIME: 04/17/2017 7:23 PM Dictated and Authenticated by: Richy Goodson MD 04/17/2017 9:14 PM Eastern Time ([place] & [place]) IMPRESSION: 1. A transitional S1 vertebral body is labeled when correlated with a number of [id number]-[id number] lumbar vertebrae. 2. At L4-5, there is a broad-based disc bulge with mild narrowing of the thecal sac. A broad-based disc bulge at L5-S1 causes effacement of the anterior epidural fat and a minimal impression on the ventral thecal sac. There is narrowing of both lateral recesses at these levels. 3. Mild narrowing of the neural foramina inferiorly is identified at L4-5 and L5 -S1 bilaterally. This can be further evaluated with MRI. 4. Cholelithiasis. - Lab Interpretations Microbiology Results: Microbiology Results 04/17/17 19:55 Throat Group A Strep Throat Culture - Final NO BETA STREP GROUP A ISOLATED. Lab Results: 04/17/17 19:55 04/17/17 19:55 Lab Results 04/17/17 19:55: Grp A Beta Strep Ag Negative 04/17/17 19:55: Sodium 143, Potassium 4.8, Chloride 102, Carbon Dioxide 28, Anion Gap 17, BUN 15, Creatinine 2.0 H, Est GFR ( Amer) 41, Est GFR (Non- Af Amer) 34, Random Glucose 83, Calcium 9.6, Total Bilirubin 0.8, AST 42, ALT 40 , Alkaline Phosphatase 70, Lactate Dehydrogenase 738 H, Total Creatine Kinase 154, Troponin I 0.06 D, Total Protein 6.9, Albumin 3.9, Globulin 2.9, Albumin/ Globulin Ratio 1.3, Lipase 62 04/17/17 19:55: PT 12.2, INR 1.07 04/17/17 19:55: WBC 6.7, RBC 2.89 L, Hgb 9.7 L, Hct 28.7 L, MCV 99.3 D, MCH 33.6, MCHC 33.8, RDW 14.5, Plt Count 203, MPV 10.4, Gran % 76.4 H, Lymph % (Auto ) 12.6 L, [place] % (Auto) 8.5 H, Eos % (Auto) 2.1, Baso % (Auto) 0.4, Gran # 5.11 , Lymph # (Auto) 0.8 L, [place] # (Auto) 0.6, Eos # (Auto) 0.1, Baso # (Auto) 0.03 I have reviewed the lab results: Yes - RAD Interpretation Radiology Orders: 04/17/17 19:23 LUMBAR SPINE W/O CONTRAST [CT] Stat NECK SOFT TISSUE W/O CONTRAST [CT] Stat CHEST TWO VIEWS (PA/LAT) [RAD] Stat - Medication Orders Current Medication Orders: Discontinued Medications Diphenhydramine HCl (Benadryl) 25 mg IVP STAT STA Stop: 04/17/17 19:24 Last Admin: 04/17/17 20:08 Dose: 25 mg IVP Administration Document 04/17/17 20:08 YP (Rec: 04/17/17 20:08 YP [id number]) Charges for Administration # of IVP Administrations 1 Sodium Chloride (Sodium Chloride 0.9%) 1,000 mls @ 999 mls/hr IV .Q1H1M STA Stop: 04/17/17 23:01 Last Admin: 04/17/17 22:38 Dose: 999 mls/hr eMAR Start Stop Document 04/17/17 22:38 YP (Rec: 04/17/17 22:39 YP [id number]) Intravenous Solution Start Date 04/17/17 Start Time 22:39 End Date 04/17/17 End time 23:39 Total Infusion Time 60 Ketorolac Tromethamine (Toradol) 30 mg IVP STAT STA Stop: 04/17/17 19:24 Last Admin: 04/17/17 20:07 Dose: 30 mg MAR Pain Assessment Document 04/17/17 20:07 YP (Rec: 04/17/17 20:07 YP [id number]) Pain Reassessment Is this a pain reassessment? No Sleep Is patient sleeping during reassessment? No Presence of Pain Presence of Pain Yes IVP Administration Document 04/17/17 20:07 YP (Rec: 04/17/17 20:07 YP [id number]) Charges for Administration # of IVP Administrations 1 Metoclopramide HCl (Reglan) 10 mg IVP STAT STA Stop: 04/17/17 19:24 Last Admin: 04/17/17 20:08 Dose: 10 mg IVP Administration Document 04/17/17 20:08 YP (Rec: 04/17/17 20:08 YP [id number]) Charges for Administration # of IVP Administrations 1 Ondansetron HCl (Zofran Inj) 4 mg IVP STAT STA Stop: 04/17/17 19:24 Last Admin: 04/17/17 20:07 Dose: 4 mg IVP Administration Document 04/17/17 20:07 YP (Rec: 04/17/17 20:07 YP [id number]) Charges for Administration # of IVP Administrations 1 - PA / [employer] / Resident Statement MD/DO has reviewed & agrees with the documentation as recorded. - Scribe Statement The provider has reviewed the documentation as recorded by the Scribe Disposition/Present on Arrival - Present on Arrival Any Indicators Present on Arrival: No History of DVT/PE: No History of Uncontrolled Diabetes: No Urinary Catheter: No History of Decub. Ulcer: No History Surgical Site Infection Following: None - Disposition Have Diagnosis and Disposition been Completed?: Yes Diagnosis: Bulging of intervertebral disc, Lumbar radiculopathy, acute, Pharyngeal irritation, GERD (gastroesophageal reflux disease), Acute renal insufficiency Disposition: HOME/ ROUTINE Disposition Time: 22:45 Patient Plan: Discharge Condition: GOOD Discharge Instructions (ExitCare): Lumbar Radiculopathy (ED), Impaired Kidney Function (ED) Additional Instructions: Mr Handy- Sherry am so sorry that you have all this going on right now. You were a little dehydrated and this is affecting your kidneys. Drink 8 glasses of water each day. See your doctor tomorrow (Friday) or Friday. You have buldging discs in your back that are causing the pain to go into your groin and leg. You have to talk to your doctor about these things as soon as possible. You can take tylenol for your pain. As far as the irritation in your throat, use a humidifier or vaporizer especially where you sleep. Best- Dr. Ed Jeronimo Referrals: Asif Welch MD [Primary Care Provider] - Follow up with primary Forms: [employer] ([place]ian)
[2017-04-17 20:20] LABS: BASO # 0.03 K/mm3 (0.0-2.0); BASO % 0.4 % (0.0-3.0); EOS # 0.1 (0.0-0.7); EOS % 2.1 % (1.5-5.0); GRAN # 5.11 (1.4-6.5); GRAN % 76.4 % (50.0-68.0); HEMOGLOBIN 9.7 g/dL (14.0-18.0); LYMPH # 0.8 (1.2-3.4); LYMPH % 12.6 % (22.0-35.0); MEAN CELL VOLUME 99.3 fl (80.0-105.0); MEAN CORPUSCULAR HEMOGLOBIN 33.6 pg (25.0-35.0); MEAN CORPUSCULAR HGB CONC 33.8 g/dl (31.0-37.0); MEAN PLATELET VOLUME 10.4 fl (7.0-11.0); MONO # 0.6 (0.1-0.6); MONO % 8.5 % (1.0-6.0); RBC 2.89 10^6/uL (3.5-6.1); RED CELL DISTRIBUTION WIDTH 14.5 % (11.5-14.5); WHITE BLOOD COUNT 6.7 10^3/ul (4.5-11.0)
[2017-04-17 20:33] LABS: ALB/GLOB RATIO 1.3 (1.1-1.8); ALBUMIN 3.9 g/dL (3.0-4.8); CALCIUM 9.6 mg/dL (8.4-10.5); PROTHROMBIN TIME 12.2 SECONDS (9.4-12.5)
[2017-04-17 20:34] LABS: INR 1.07 (0.93-1.08)
[2017-04-17 20:39] LABS: TROPONIN I 0.06 ng/mL
--- NOTE | 2017-04-17 20:56 | CT ---
EXAM: CT Neck Without Intravenous Contrast EXAM DATE/TIME: 04/17/2017 7:23 PM CLINICAL HISTORY: The patient age is 66 years old and is male; Screening exam; Feels like something is stuck in his throat-pills Facility exam id and description: Ct necks neck soft tissue w/o contrast TECHNIQUE: Axial computed tomography images of the neck without intravenous contrast. All CT scans at this facility use one or more dose reduction techniques, viz.: automated exposure control; ma/kV adjustment per patient size (including targeted exams where dose is matched to indication; i.e. head); or iterative reconstruction technique. Coronal and sagittal reformatted images were created and reviewed. COMPARISON: No relevant prior studies available. FINDINGS: Nasopharynx: No acute abnormality. Oropharynx: No significant tonsillar enlargement. Hypopharynx: No acute abnormality. Larynx: Normal epiglottis. Trachea: No acute abnormality. Retropharyngeal space: No acute abnormality. Submandibular/parotid glands: Glands are normal in size. Thyroid: No enlarged or calcified nodules. Bones/joints: Spondylosis is visualized at multiple cervical levels. There is mild reversal of the lordotic curvature of the cervical spine. There is a linear calcific or ossification is identified extending superior to the hyoid bone on the right side from the region of the hyoid cornu. This is external to the airway. Soft tissues: No foreign body of abnormal density is identified within the visualized airway. Vasculature: Atherosclerotic changes are visualized of the aortic arch. There is atherosclerosis at the right carotid bifurcation as well. Lymph nodes: Scattered small cervical lymph nodes are identified, without significant lymphadenopathy. Sinuses: There is minimal mucosal thickening of the bilateral maxillary sinuses. Lung apices: Unremarkable as visualized. IMPRESSION: 1. There is normal aeration of the pharynx, without a foreign body. 2. Paranasal sinus disease is noted above. 3. Incidental/non-acute findings are described above.
--- NOTE | 2017-04-17 21:14 | CT ---
EXAM: CT Lumbar Spine Without Intravenous Contrast EXAM DATE/TIME: 04/17/2017 7:23 PM CLINICAL HISTORY: The patient age is 66 years old and is male; Pain; Low back pain; Additional info: Right sided radiculopathy Facility exam id and description: Ct lumbs lumbar spine w/o contrast TECHNIQUE: Axial computed tomography images of the lumbar spine without intravenous contrast. All CT scans at this facility use one or more dose reduction techniques, viz.: automated exposure control; ma/kV adjustment per patient size (including targeted exams where dose is matched to indication; i.e. head); or iterative reconstruction technique. Coronal and sagittal reformatted images were created and reviewed. COMPARISON: No relevant prior studies available. FINDINGS: Vertebrae: A transitional vertebra is identified at the lumbosacral junction. A transitional S1 vertebral body is labeled when correlated with a number of [id number] lumbar vertebrae. Osteopenia. Facet arthropathy is identified within the lower lumbar spine. The lower vertebral bodies are normal in height, without abnormal subluxation or acute fracture. Discs/spinal canal/neural foramina: At L4-5, there is a broad-based disc bulge with mild narrowing of the thecal sac. A broad-based disc bulge at L5-S1 causes effacement of the anterior epidural fat and a minimal impression on the ventral thecal sac. There is narrowing of both lateral recesses at these levels. There is no significant narrowing of the thecal sac at the remaining lumbar levels. Mild narrowing of the neural foramina inferiorly is identified at L4-5 and L5-S1 bilaterally. Vasculature: Atherosclerotic changes are identified of the abdominal aorta and iliac arteries. Gallbladder and bile ducts: Small gallstones are visualized. IMPRESSION: 1. A transitional S1 vertebral body is labeled when correlated with a number of [id number] lumbar vertebrae. 2. At L4-5, there is a broad-based disc bulge with mild narrowing of the thecal sac. A broad-based disc bulge at L5-S1 causes effacement of the anterior epidural fat and a minimal impression on the ventral thecal sac. There is narrowing of both lateral recesses at these levels. 3. Mild narrowing of the neural foramina inferiorly is identified at L4-5 and L5-S1 bilaterally. This can be further evaluated with MRI. 4. Cholelithiasis.
[2017-04-17] MEDS ORDERED: Sodium Chloride 0.9% 1,000 ML IV STA (22:01)
[2017-04-17 23:48] VITALS: BP 121/63; PULSE 76; O2SAT 99
--- NOTE | 2017-04-18 10:14 | RAD ---
HISTORY: Chest Tightness (acid reflux) COMPARISON: No prior. TECHNIQUE: Chest PA and lateral FINDINGS: LUNGS: No active pulmonary disease. PLEURA: No significant pleural effusion identified. No pneumothorax apparent. CARDIOVASCULAR: Normal. OSSEOUS STRUCTURES: Old rib fracture on the right VISUALIZED UPPER ABDOMEN: Elevation left hemidiaphragm OTHER FINDINGS: None. IMPRESSION: No active disease.
--- NOTE | 2017-04-18 16:17 | CARD ---
APPROVED REPORT EKG Measurement Heart [id number] [id number] [id number] <Conclusion> Normal sinus rhythm Normal ECG
== END 2017-04-17 23:57 | disposition home or self-care (01) ==
LOC: ED 18:19
DX: K21.9 Gastro-esophageal reflux disease without esophagitis (principal); M54.16 Radiculopathy, lumbar region; N28.9 Disorder of kidney and ureter, unspecified; J39.2 Other diseases of pharynx; M51.86 Other intervertebral disc disorders, lumbar region; I10 Essential (primary) hypertension; E11.9 Type 2 diabetes mellitus without complications; Z87.891 Personal history of nicotine dependence
CPT/HCPCS: 70490; 71046; 72131; 80053; 82550; 83615; 83690; 84484; 85025; 85610; 87070; 87430; 93005; 96361; 96374; 96375; 99284; J1200; J1885; J2405; J2765; J7040

== ENCOUNTER 2017-04-23 12:56 | Emergency (ER) | payer MEDICARE ==
[2017-04-23 12:57] VITALS: BMI 40.1
[2017-04-23 13:11] VITALS: TEMP 98.8
[2017-04-23] MEDS ORDERED: Alum-Mag Hydrox-Simethicone Susp (30 mL) PO STA (15:15)
[2017-04-23 15:28] VITALS: RESP 18; O2SAT 98
--- NOTE | 2017-04-23 16:08 | ED PDOC ---
Arrival/HPI - General Chief Complaint: Back Pain Time Seen by Provider: 04/23/17 14:10 Historian: Patient - History of Present Illness Narrative History of Present Illness (Text): 66yo male with history of diabetes, peripheral vascular disease, CML and GERD, presents to ER today with multiple complaints. He is complaining of right lower back pain which radiates to his right leg, present intermittently for the past year. Patient has a second complaint that his GERD reflux has been worsening for the past year as well. He also reports a cough for the past 2-3 days and is concerned about pneumonia. He denies any fever, chills, chest pain, shortness of breath, abdominal pain, vomiting or diarrhea. He has no other medical complaints. Past Medical History - Provider Review Nursing Documentation Reviewed: Yes - Infectious Disease Hx of Infectious Diseases: None - Tetanus Immunization Tetanus Immunization: Unknown - Cardiac Hx Hypertension: Yes Hx Peripheral Vascular Disease: Yes - Pulmonary Hx Respiratory Disorders: Yes Hx Pneumonia: Yes (1996) Other/Comment: smoker / Lobectomy - Neurological Hx Neurological Disorder: No - HEENT Hx HEENT Disorder: No - Renal Hx Renal Disorder: No - Endocrine/Metabolic Hx Endocrine Disorders: Yes Hx Diabetes Mellitus Type 2: Yes - Hematological/Oncological Hx Blood Disorders: No - Integumentary Hx Dermatological Disorder: Yes Other/Comment: ULCER RIGHT LEG - Musculoskeletal/Rheumatological Hx Falls: Yes - Gastrointestinal Hx Gastrointestinal Disorders: No - Genitourinary/Gynecological Hx Genitourinary Disorders: No - Psychiatric Hx Psychophysiologic Disorder: No Hx Depression: No Hx Substance Use: No - Past Surgical History Past Surgical History: No Previous - Surgical History Hx Cardiac Catheterization: Yes Hx Coronary Stent: Yes (x1) Other/Comment: LOWER LEFT LOBECTOMY - Anesthesia Hx Anesthesia: Yes Hx Anesthesia Reactions: No Hx Malignant Hyperthermia: No - Suicidal Assessment Feels Threatened In Home Enviroment: No Family/Social History - Physician Review Nursing Documentation Reviewed: Yes Family/Social History: No Known Family HX Smoking Status: Former Smoker Hx Alcohol Use: Yes (socially) Hx Substance Use: No Hx Substance Use Treatment: No Allergies/Home Meds Allergies/Adverse Reactions: Allergies No Known Allergies Allergy (Verified 04/23/17 13:11) Home Medications: Home Meds Medication Instructions Recorded Confirmed Metformin HCl 1,000 mg PO BID 03/15/12 04/23/17 Acarbose 50 mg PO TID 12/02/13 04/23/17 Rosuvastatin Calcium [Crestor] 10 mg PO HS 12/02/13 04/23/17 Furosemide [Lasix] 20 mg PO DAILY 07/14/15 04/23/17 Clopidogrel [Plavix] 75 mg PO DAILY 03/05/16 04/23/17 Potassium Chloride [Klor-Con 10 meq PO DAILY 03/05/16 04/23/17 Sprinkle] Imatinib Mesylate 400 mg PO DAILY 03/20/16 04/23/17 Aspirin [Lo-Dose Aspirin EC] 1 tab PO DAILY 05/16/16 04/23/17 Famotidine [Pepcid] 1 tab PO BID 04/17/17 04/23/17 Review of Systems - Physician Review All systems were reviewed & negative as marked: Yes - Review of Systems Constitutional: absent: Fevers Respiratory: Cough. absent: SOB Cardiovascular: absent: Chest Pain Gastrointestinal: absent: Abdominal Pain, Diarrhea, Vomiting Musculoskeletal: Back Pain (radiating to right leg) Physical Exam Vital Signs Reviewed: Yes Vital Signs Temp Pulse Resp BP Pulse Ox 04/23/17 17:05 89 18 131/71 98 04/23/17 15:27 94 H 18 135/76 98 04/23/17 13:08 98.8 F 101 H 20 137/81 99 Temperature: Afebrile Blood Pressure: Normal Pulse: Regular Respiratory Rate: Normal Appearance: Positive for: Well-Appearing, Non-Toxic, Comfortable Pain Distress: None Mental Status: Positive for: Alert and Oriented X 3 - Systems Exam Head: Present: Atraumatic, Normocephalic Pupils: Present: PERRL Extroacular Muscles: Present: EOMI Mouth: Present: Moist Mucous Membranes Neck: Present: Normal Range of Motion Respiratory/Chest: Present: Clear to Auscultation, Good Air Exchange. No: Respiratory Distress, Accessory Muscle Use Cardiovascular: Present: Regular Rate and Rhythm, Normal S1, S2. No: Murmurs Abdomen: Present: Normal Bowel Sounds. No: Tenderness, Distention, Peritoneal Signs Back: Present: Normal Inspection Upper Extremity: Present: Normal Inspection. No: Cyanosis, Edema Lower Extremity: Present: Normal Inspection. No: Edema Neurological: Present: GCS=15, CN II-XII Intact, Speech Normal Skin: Present: Warm, Dry, Normal Color. No: Rashes Psychiatric: Present: Alert, Oriented x 3, Normal Insight, Normal Concentration Medical Decision Making ED Course and Treatment: Impression: A 66 year old male with multiple complaints. Patient reports sore throat, acid reflux, sciatic pain, and cough Plan: -- Chest X-ray -- Tylenol 650 mg PO -- Pepcid 20 mg PO -- Maalox 30 mg PO -- Flexeril 10 mg PO -- Reassess and disposition Prior Visits: Notes and results from previous visits were reviewed. Patient was last seen in the emergency department on 04/17/17 for similar complaints and was discharged home with instruction to follow up with his PCP. Progress Notes: Chest X-ray reviewed and shows no acute diseases. On re-evaluation, patient states he feels much better. Patient able to walk with no ataxia. Stable for discharge home and instructed to follow up with PCP in 1-2 days. - RAD Interpretation Radiology Orders: 04/23/17 15:15 CXR [CHEST TWO VIEWS (PA/LAT)] [RAD] Stat - Medication Orders Current Medication Orders: Discontinued Medications Acetaminophen (Tylenol 325mg Tab) 650 mg PO STAT STA Stop: 04/23/17 15:19 Last Admin: 04/23/17 15:31 Dose: 650 mg MAR Pain/Vitals Document 04/23/17 15:31 GMD (Rec: 04/23/17 15:31 [place]MD [facility] [id number] Pain Reassessment Is This A Pain ReAssessment? No Sleep Is patient sleeping during reassessment? No Presence of Pain Presence of Pain Yes Al Hydrox/Mg Hydrox/Simethicone (Maalox Plus 30 Ml) 30 ml PO STAT STA Stop: 04/23/17 15:16 Last Admin: 04/23/17 15:31 Dose: 30 ml Cyclobenzaprine HCl (Flexeril) 10 mg PO STAT STA Stop: 04/23/17 15:18 Last Admin: 04/23/17 15:31 Dose: 10 mg Famotidine (Pepcid) 20 mg PO STAT STA Stop: 04/23/17 15:16 Last Admin: 04/23/17 15:31 Dose: 20 mg - Scribe Statement The provider has reviewed the documentation as recorded by the Serafin Clements Provider Scribe Attestation: All medical record entries made by the Dinoibida were at my direction and personally dictated by me. I have reviewed the chart and agree that the record accurately reflects my personal performance of the history, physical exam, medical decision making, and the department course for this patient. I have also personally directed, reviewed, and agree with the discharge instructions and disposition. Disposition/Present on Arrival - Present on Arrival Any Indicators Present on Arrival: No History of DVT/PE: No History of Uncontrolled Diabetes: No Urinary Catheter: No History of Decub. Ulcer: No History Surgical Site Infection Following: None - Disposition Have Diagnosis and Disposition been Completed?: Yes Diagnosis: Back pain, GERD (gastroesophageal reflux disease), Bronchitis Disposition: HOME/ ROUTINE Disposition Time: 17:20 Patient Plan: Discharge Condition: IMPROVED Discharge Instructions (ExitCare): Sciatica (ED), Acute Bronchitis (ED), Gastroesophageal Reflux Disease (ED) Additional Instructions: Mr Handy, thank you for letting us take care of you today. Your provider was Dr. Low. You were treated for Bronchitis, Sciatica, GERD. The emergency medical care you received today was directed at your acute symptoms. If you were prescribed any medication, please fill it and take as directed. It may take several days for your symptoms to resolve. Return to the Emergency Department if your symptoms worsen, do not improve, or if you have any other problems. Please contact your doctor or call one of the physicians/clinics you have been referred to that are listed on the Patient Visit Information form that is included in your discharge packet. Bring any paperwork you were given at discharge with you along with any medications you are taking to your follow up visit. Our treatment cannot replace ongoing medical care by a primary care provider (PCP) outside of the emergency department. Thank you for allowing the [facility] team to be part of your care today. If you had an X-Ray or CT scan: A Radiologist will review the ED reading if any change in treatment is needed we will contact you. If you had a blood, urine, or wound culture: It will take several days for the results, if any change in treatment is needed we will contact you. If you had an STI test: It will take 48 hours for the results. Please call after 1 week if you have not heard back. Prescriptions: Cyclobenzaprine [Cyclobenzaprine HCl] 10 mg PO Q8 #20 tab Famotidine [Pepcid] 10 mg PO BID PRN #30 tab PRN Reason: Pain, Mild (1-3) Ondansetron ODT [Zofran ODT] 4 mg PO Q6 #14 odt Referrals: Asif Welch MD [Primary Care Provider] - Follow up with primary Forms: [employer] Connect (Lithuanian), WORK NOTE
--- NOTE | 2017-04-23 16:52 | RAD ---
HISTORY: cough r/o pna COMPARISON: Chest x-ray performed 04/17/17, CTA chest performed 12/16/16 TECHNIQUE: Chest PA and lateral FINDINGS: LUNGS: No focal consolidation. 4 mm nodular opacity within the left upper lobe, possibly prominent vessel on end. Please note that chest x-ray has limited sensitivity for the detection of pulmonary masses. PLEURA: No significant pleural effusion identified. No definite pneumothorax . CARDIOVASCULAR: Heart size appears within normal limits. OSSEOUS STRUCTURES: Degenerative changes of the spine including confluent anterior osteophyte formation. Chronic appearing right 6th posterior rib fracture deformity. Probable chronic left lateral rib fracture deformities. VISUALIZED UPPER ABDOMEN: Elevation of the left hemidiaphragm. OTHER FINDINGS: None. IMPRESSION: No acute findings identified. See above.
[2017-04-23 17:06] VITALS: BP 131/71; PULSE 89
== END 2017-04-23 17:20 | disposition home or self-care (01) ==
LOC: ED 12:56
DX: K21.9 Gastro-esophageal reflux disease without esophagitis (principal); J40 Bronchitis, not specified as acute or chronic; M54.5 Low back pain; I10 Essential (primary) hypertension; E11.9 Type 2 diabetes mellitus without complications; Z87.891 Personal history of nicotine dependence

== ENCOUNTER 2017-04-30 19:14 | Inpatient (IN) | payer MEDICARE ==
[2017-04-30 19:15] VITALS: BMI 40.1
--- NOTE | 2017-04-30 19:55 | ED PDOC ---
Arrival/HPI - General Historian: Patient <Raymond Perdomo - Last Filed: 04/30/17 21:50> <DevanteAmauri L - Last Filed: 04/30/17 23:11> - General Chief Complaint: Back Pain Time Seen by Provider: 04/30/17 19:25 - History of Present Illness Narrative History of Present Illness (Text): 04/30/17 19:52 66 y/o male, pmh including htn/hyperlipidemia/dm/peripheral vascular disease/L4- S1 lumbar disc bulging/gerd, nkda, c/o epigastric pain x 1 week with lower back pain as well. Pt. stated that he has been having epigastric pain on and off for over months, been severe for the past 1 week, admits nausea and vomiting. Pt. stated that he has lower back pain as well radiating to the rt. lower extremity, no recent fall or trauma, CT lumbar from 04/17/2017 show disc bulging , no urinary or bowel incontinence or retention, no urinary symptoms, no rash, no ecchymosis, no painful lesion, no other medical or psychological complaints. (Raymond Perdomo) Past Medical History - Provider Review Nursing Documentation Reviewed: Yes - Infectious Disease Hx of Infectious Diseases: None - Tetanus Immunization Tetanus Immunization: Unknown - Cardiac Hx Cardiac Disorders: Yes Hx Hypertension: Yes Hx Peripheral Vascular Disease: Yes - Pulmonary Hx Respiratory Disorders: Yes Hx Pneumonia: Yes (1995) Other/Comment: smoker / Lobectomy - Neurological Hx Neurological Disorder: No - HEENT Hx HEENT Disorder: No - Renal Hx Renal Disorder: No - Endocrine/Metabolic Hx Endocrine Disorders: Yes Hx Diabetes Mellitus Type 2: Yes - Hematological/Oncological Hx Blood Disorders: No - Integumentary Hx Dermatological Disorder: Yes Other/Comment: ULCER RIGHT LEG - Musculoskeletal/Rheumatological Hx Falls: Yes - Gastrointestinal Hx Gastrointestinal Disorders: No - Genitourinary/Gynecological Hx Genitourinary Disorders: No - Psychiatric Hx Psychophysiologic Disorder: No Hx Depression: No Hx Substance Use: No - Past Surgical History Past Surgical History: No Previous - Surgical History Hx Cardiac Catheterization: Yes Hx Coronary Stent: Yes (x1) Other/Comment: LOWER LEFT LOBECTOMY - Anesthesia Hx Anesthesia: Yes Hx Anesthesia Reactions: No Hx Malignant Hyperthermia: No - Suicidal Assessment Feels Threatened In Home Enviroment: No <Raymond Perdomo - Last Filed: 04/30/17 21:50> Family/Social History - Physician Review Nursing Documentation Reviewed: Yes Family/Social History: Unknown Family HX Smoking Status: Former Smoker Hx Alcohol Use: Yes (socially) Hx Substance Use: No Hx Substance Use Treatment: No <Raymond Perdomo Q - Last Filed: 04/30/17 21:50> Allergies/Home Meds <Raymond Perdomo Q - Last Filed: 04/30/17 21:50> <DevanteAmauri L - Last Filed: 04/30/17 23:11> Allergies/Adverse Reactions: Allergies No Known Allergies Allergy (Verified 04/30/17 19:31) Home Medications: Home Meds Medication Instructions Recorded Confirmed Metformin HCl 1,000 mg PO BID 03/15/12 04/30/17 Acarbose 50 mg PO TID 12/02/13 04/30/17 Rosuvastatin Calcium [Crestor] 10 mg PO HS 12/02/13 04/30/17 Furosemide [Lasix] 20 mg PO DAILY 07/14/15 04/30/17 Clopidogrel [Plavix] 75 mg PO DAILY 03/05/16 04/30/17 Potassium Chloride [Klor-Con 10 meq PO DAILY 03/05/16 04/30/17 Sprinkle] Imatinib Mesylate 400 mg PO DAILY 03/20/16 04/30/17 Aspirin [Lo-Dose Aspirin EC] 1 tab PO DAILY 05/16/16 04/30/17 Famotidine [Pepcid] 1 tab PO BID 04/17/17 04/30/17 Review of Systems - Review of Systems Constitutional: absent: Fatigue, Fevers Eyes: absent: Vision Changes ENT: absent: Hearing Changes Respiratory: absent: SOB, Cough Cardiovascular: absent: Chest Pain Gastrointestinal: Abdominal Pain, Nausea. absent: Diarrhea, Vomiting Musculoskeletal: Back Pain. absent: Arthralgias, Joint Swelling, Myalgias Skin: absent: Rash, Pruritis Neurological: absent: Headache, Dizziness Psychiatric: absent: Anxiety, Depression, Suicidal Ideation <Raymond Perdomo - Last Filed: 04/30/17 21:50> Physical Exam Vital Signs Reviewed: Yes Temperature: Afebrile Blood Pressure: Hypertensive Pulse: Regular Respiratory Rate: Normal Appearance: Positive for: Well-Appearing, Non-Toxic, Comfortable Pain Distress: Mild Mental Status: Positive for: Alert and Oriented X 3 - Systems Exam Head: Present: Atraumatic, Normocephalic Pupils: Present: PERRL Extroacular Muscles: Present: EOMI Conjunctiva: Present: Normal Ears: Present: NORMAL TM, Normal Canal. No: Erythema Mouth: Present: Moist Mucous Membranes Pharnyx: Present: Normal. No: ERYTHEMA, EXUDATE, TONSILS ENLARGED Nose (External): Present: Atraumatic. No: Abrasion, Contusion, Laceration Nose (Internal): Present: Normal Inspection, No Active Bleeding. No: Rhinorrhea , Septal Hematoma, Epistaxis Neck: Present: Normal Range of Motion. No: Meningeal Signs, MIDLINE TENDERNESS , Paraspinal Tenderness, Lymphadenopathy Respiratory/Chest: Present: Clear to Auscultation, Good Air Exchange. No: Respiratory Distress, Accessory Muscle Use Cardiovascular: Present: Regular Rate and Rhythm, Normal S1, S2, Other (no pedal edema). No: Murmurs Abdomen: Present: Tenderness (epigastric tenderness), Normal Bowel Sounds. No: Distention, Peritoneal Signs, Rebound, Guarding Back: Present: Normal Inspection, Paraspinal Tenderness (ttp on the rt. paraspinal of lumbar region, no rash or vesicular lesion. ). No: CVA Tenderness , Midline Tenderness Upper Extremity: Present: Normal Inspection. No: Cyanosis, Edema Lower Extremity: Present: Normal Inspection. No: Edema Neurological: Present: GCS=15, Speech Normal, Motor Func Grossly Intact, Gait Normal, Memory Normal Skin: Present: Warm, Dry, Normal Color. No: Rashes Psychiatric: Present: Alert, Oriented x 3, Normal Insight, Normal Concentration <Raymond Perdomo Q - Last Filed: 04/30/17 21:50> Vital Signs Temp Pulse Resp BP Pulse Ox 04/30/17 21:41 83 18 141/68 100 04/30/17 19:38 98.8 F 96 H 17 169/69 H 99 Medical Decision Making - RAD Interpretation Bolt Sorter: Radiologist - EKG Interpretation Interpreted by ED Physician: Yes Type: 12 lead EKG Comparison: Com.w/previous EKG <Raymond Perdomo - Last Filed: 04/30/17 21:50> - Critical Care Critical Care Minutes: 60 minutes <Amauri Low - Last Filed: 04/30/17 23:11> ED Course and Treatment: 04/30/17 19:57 Differential: ND vs. Pancreatitis vs. cholecystitis vs. gerd vs. DVT vs. lumbar radiculopathy vs. organ failure vs. electrolyte imbalance vs. CHF -labs/cardiac enzyme/lipase/ua -ekg -cxr -RLE venuous doppler -Gallbladder sonogram -IV pepcid/zofran/morphine 4mg -observe and reassess 04/30/17 21:05 -EKG: NSR @ 96 BPM, no ST elevation or depression, no T wave inversion, Tall T wave noted on the V2-V3, compared with previous ekg. -Chest xray: no active disease, chronic elevation of the lt. hemidiaphragm. -Labs are significant for hgb 8.9 from 9.7, K+ 5.8 from 4.8 (kayaxalate 15gm po ordered, Calcium Gluconate 2gm IV, Insulin 10 and Dextrose 50 ordered)), Creatine 7.8 from 2.0 (rt. lower back pain will need to rule out obstructive stone), BNP 479 and troponin 0.02 (will need to be trend and need to be determine from cardiac vs. renal induced, ekg show no ischemic changes). -LLE Venuous doppler pending -Gallbladder sonogram pending -Case discussed and endorsed to the ER attending Dr. Low, he will follow up the pending labs and radiology results. Pt. will need a guaiac exam as well. (Raymond Perdomo) Spoke with radiologist tech, reports lower extremity ultrasound is negative for DVT. Gallbladder preliminary report is negative for Cholecystitis but positive for gallstones. Report Date: 05/03/17 21:21 EXAM: US Abdomen Limited, Right Upper Quadrant Dictated and Authenticated by: Shashi Meredith MD IMPRESSION: 1. Cholelithiasis. 2. Incidental/non-acute findings are described above. 04/30/17 22:38 Renal failure likely due to persistent vomiting and dehydration. Treating with IVF. Potassium elevated with EKG findings as noted by PA. Treated with medications as noted. Patient abdominal pain is resolved. Case discussed with Dr. Welch, who is aware and agrees with plan. Accepts pt in to his service. Recommends remote telemetry for renal failure. He will consult as Renal. Patient's rectal exam showed brown stool. + guaic. Will treat with Protonix IV. Dr. Welch requested Dr. Phipps for GI. He was consulted. (Amauri Low) - Lab Interpretations Lab Results: 04/30/17 20:15 04/30/17 20:15 Lab Results 04/30/17 20:15: WBC 7.5, RBC 2.69 L, Hgb 8.9 L, Hct 26.1 L, MCV 97.0, MCH 33.1, MCHC 34.1, RDW 13.9, Plt Count 206, MPV 10.3, Gran % 73.0 H, Lymph % (Auto) 13.8 L, Bartholomew % (Auto) 7.9 H, Eos % (Auto) 4.8, Baso % (Auto) 0.5, Gran # 5.44, Lymph # (Auto) 1.0 L, Bartholomew # (Auto) 0.6, Eos # (Auto) 0.4, Baso # (Auto) 0.04 04/30/17 20:15: Sodium 135, Potassium 5.8 H* D, Chloride 99, Carbon Dioxide 22, Anion Gap 20, BUN 42 H, Creatinine 7.8 H* D, Est GFR ( Amer) 9, Est GFR ( Non-Af Amer) 7, Random Glucose 87, Calcium 9.9, Magnesium 1.6 L, Total Bilirubin 0.5, AST 35, ALT 30, Alkaline Phosphatase 68, Lactate Dehydrogenase 600, Total Creatine Kinase 114, Troponin I 0.02 D, NT-Pro-B Natriuret Pep 479 H , Total Protein 6.7, Albumin 4.0, Globulin 2.7, Albumin/Globulin Ratio 1.5, Lipase 98 - RAD Interpretation Radiology Orders: 04/30/17 19:49 GALL BLADDER [US] Stat 04/30/17 19:51 DUPLEX LOWER EXTRM VEIN RIGHT [US] Stat 04/30/17 19:52 CHEST PORTABLE [RAD] Stat 04/30/17 20:48 ABDOMEN & PELVIS [ABD & PELVIS W/O PO OR IV CONT] [CT] Stat -LLE Venuous doppler: -Gallbladder sonogram: -Chest xray: (Raymond Perdomo) - EKG Interpretation EKG Interpretation (Text): 04/30/17 20:06 -EKG: NSR @ 96 BPM, no ST elevation or depression, no T wave inversion, compared with previous ekg. (Raymond Perdomo) - Medication Orders Current Medication Orders: Discontinued Medications Calcium Gluconate (Calcium Gluconate Iv) 2,000 mg IVP ONCE ONE Stop: 04/30/17 20:57 Last Admin: 04/30/17 21:42 Dose: 2,000 mg IVP Administration Document 04/30/17 21:42 CNR (Rec: 04/30/17 21:42 CNR [id number]) Charges for Administration # of IVP Administrations 1 Dextrose (Dextrose 50% Inj) 50 ml IVP STAT STA Stop: 04/30/17 21:05 Last Admin: 04/30/17 21:41 Dose: 50 ml IVP Administration Document 04/30/17 21:41 CNR (Rec: 04/30/17 21:41 CNR [id number]) Charges for Administration # of IVP Administrations 1 Famotidine (Pepcid) 20 mg IVP STAT STA Stop: 04/30/17 19:49 Last Admin: 04/30/17 20:18 Dose: 20 mg IVP Administration Document 04/30/17 20:18 CNR (Rec: 04/30/17 20:18 CNR [id number]) Charges for Administration # of IVP Administrations 1 Sodium Chloride (Sodium Chloride 0.9%) 1,000 mls @ 999 mls/hr IV .Q1H1M STA Stop: 04/30/17 22:50 Last Admin: 04/30/17 21:51 Dose: 999 mls/hr eMAR Start Stop Document 04/30/17 21:51 CNR (Rec: 04/30/17 21:51 CNR [id number]) Intravenous Solution Start Date 04/30/17 Start Time 21:51 Insulin Human Regular (Humulin R) 10 units IV STAT STA Stop: 04/30/17 21:03 Last Admin: 04/30/17 21:42 Dose: 10 units eMAR Start Stop Document 04/30/17 21:42 CNR (Rec: 04/30/17 21:42 CNR [id number]) Intravenous Solution Start Date 04/30/17 Start Time 21:42 Morphine Sulfate (Morphine) 4 mg IVP STAT STA Stop: 04/30/17 19:57 Last Admin: 04/30/17 20:18 Dose: 4 mg MAR Pain Assessment Document 04/30/17 20:18 CNR (Rec: 04/30/17 20:18 CNR [id number]) Pain Reassessment Is this a pain reassessment? Yes IVP Administration Document 04/30/17 20:18 CNR (Rec: 04/30/17 20:18 CNR [id number]) Charges for Administration # of IVP Administrations 1 Ondansetron HCl (Zofran Inj) 4 mg IVP STAT STA Stop: 04/30/17 19:49 Last Admin: 04/30/17 20:18 Dose: 4 mg IVP Administration Document 04/30/17 20:18 CNR (Rec: 04/30/17 20:18 CNR [id number]) Charges for Administration # of IVP Administrations 1 Pantoprazole Sodium (Protonix Inj) 80 mg IVP STAT STA Stop: 04/30/17 23:10 Sodium Polystyrene Sulfonate (Kayexalate Susp) 15 gm PO STAT STA Stop: 04/30/17 20:54 Last Admin: 04/30/17 21:42 Dose: 15 gm - PA / SURVEYOR INSTRUMENT ASSISTANT / Resident Statement / has reviewed & agrees with the documentation as recorded. / has examined the patient and agrees with the treatment plan. <Raymond Perdomo - Last Filed: 04/30/17 21:50> Disposition/Present on Arrival - Present on Arrival Any Indicators Present on Arrival: No History of DVT/PE: No History of Uncontrolled Diabetes: Yes Urinary Catheter: No History of Decub. Ulcer: No History Surgical Site Infection Following: None - Disposition Have Diagnosis and Disposition been Completed?: Yes Disposition Time: 20:53 Patient Plan: Telemetry <Raymond Perdomo - Last Filed: 04/30/17 21:50> - Present on Arrival Any Indicators Present on Arrival: Yes History of Uncontrolled Diabetes: Yes - Disposition Have Diagnosis and Disposition been Completed?: Yes Patient Plan: Telemetry <Amauri Low - Last Filed: 04/30/17 23:11> - Disposition Diagnosis: Renal failure, Hyperkalemia, Abnormal EKG, Anemia, GI bleed Disposition: HOSPITALIZED Patient Problems: Current Active Problems Problem Status Onset Renal failure Acute Hyperkalemia Acute Abnormal EKG Acute Anemia Acute Condition: STABLE Referrals: Asif Welch MD [Primary Care Provider] - Follow up with primary Forms: [employer] (Filipino)
[2017-04-30] MEDS ORDERED: Morphine 4 mg/ml ISec IVP STA (19:56)
[2017-04-30 20:36] LABS: BASO # 0.04 K/mm3 (0.0-2.0); BASO % 0.5 % (0.0-3.0); EOS # 0.4 (0.0-0.7); EOS % 4.8 % (1.5-5.0); GRAN # 5.44 (1.4-6.5); HEMOGLOBIN 8.9 g/dL (14.0-18.0); LYMPH % 13.8 % (22.0-35.0); MEAN CORPUSCULAR HEMOGLOBIN 33.1 pg (25.0-35.0); MEAN CORPUSCULAR HGB CONC 34.1 g/dl (31.0-37.0); MEAN PLATELET VOLUME 10.3 fl (7.0-11.0); MONO # 0.6 (0.1-0.6); MONO % 7.9 % (1.0-6.0); RBC 2.69 10^6/uL (3.5-6.1); RED CELL DISTRIBUTION WIDTH 13.9 % (11.5-14.5); WHITE BLOOD COUNT 7.5 10^3/ul (4.5-11.0)
[2017-04-30 20:47] LABS: ALB/GLOB RATIO 1.5 (1.1-1.8); CALCIUM 9.9 mg/dL (8.4-10.5); MAGNESIUM 1.6 mg/dL (1.7-2.2)
[2017-04-30] MEDS ORDERED: Sod Polystyrene Sulf 15 gm/60 ml Susp PO STA (20:53)
[2017-04-30 20:54] LABS: TROPONIN I 0.02 ng/mL
[2017-04-30] MEDS ORDERED: Insulin Regular 1 UNITS/0.01 ML ML IV STA (21:02)
[2017-04-30] MEDS ORDERED: Dextrose 50% SYRINGE Inj (50 ml) IVP STA (21:04)
--- NOTE | 2017-04-30 21:22 | US ---
EXAM: US Abdomen Limited, Right Upper Quadrant CLINICAL HISTORY: 66 years old, male; Pain; Abdominal pain; Additional info: Epigastric pain TECHNIQUE: Real-time ultrasound of the right upper quadrant with image documentation. COMPARISON: CT - ABD PELVIS W/O PO OR IV CONT 2016-10-11 20:23 FINDINGS: Limitations: Body habitus. Liver: Enlarged, 17.9 cm. Fatty infiltration. No mass. No intrahepatic ductal dilatation. Gallbladder: Gallstones. No wall thickening. No pericholecystic fluid. No sonographic Holman's sign. Common bile duct: No dilatation. No stones. Pancreas: Unremarkable as visualized. Right kidney: Normal echogenicity. No hydronephrosis. IMPRESSION: 1. Cholelithiasis. 2. Incidental/non-acute findings are described above.
[2017-04-30] MEDS ORDERED: Sodium Chloride 0.9% 1,000 ML IV STA ×2 (21:50→23:15)
--- NOTE | 2017-04-30 21:51 | CT ---
EXAM: CT Abdomen and Pelvis Without Intravenous Contrast CLINICAL HISTORY: 66 years old, male; Pain; Abdominal pain; Localized; Right lower quadrant (rlq); Prior surgery; Surgery date: 6+ months; Surgery type: Ap; Additional info: R/O stone. TECHNIQUE: Axial computed tomography images of the abdomen and pelvis without intravenous contrast. All CT scans at this facility use one or more dose reduction techniques, viz.: automated exposure control; ma/kV adjustment per patient size (including targeted exams where dose is matched to indication; i.e. head); or iterative reconstruction technique. Coronal and sagittal reformatted images were created and reviewed. COMPARISON: CT - ABD PELVIS W/O PO OR IV CONT 2016-10-11 20:23 FINDINGS: Lower thorax: Minimal atelectasis/scarring. Early emphysematous changes. Elevated LEFT hemidiaphragm. Coronary artery calcifications. ABDOMEN: Liver: Unremarkable. Gallbladder and bile ducts: Mild gallbladder distention. Calcified gallstones. No significant ductal dilation. Pancreas: Unremarkable. No ductal dilation. Spleen: No splenomegaly. Adrenals: No mass. Kidneys and ureters: [id number] stranding about kidneys, nonspecific. Probable RIGHT renal cyst. No renal calculi. No hydronephrosis. Stomach and bowel: No definite mural thickening. Few minimally distended loops of small bowel, likely ileus. Appendix: No definite findings to suggest acute appendicitis. PELVIS: Bladder: Apparent mild bladder wall thickening. Incomplete distention, limiting evaluation. No stones. Reproductive: Unremarkable as visualized. ABDOMEN and PELVIS: Intraperitoneal space: No significant fluid collection. No free air. Bones/joints: Chronic deformity few left ribs. Degenerative changes of spine. Soft tissues: Mild diffuse stranding within subcutaneous tissues. Mild gynecomastia. Vasculature: Unremarkable. No aneurysm. Lymph nodes: Mildly enlarged right iliac lymph node, stable. IMPRESSION: 1. No definite CT evidence of urolithiasis. 2. Perinephric stranding with apparent bladder wall thickening. Correlate with urinalysis to exclude infection. 3. Incidental/non-acute findings are described above.
[2017-04-30 23:40] LABS: INR 1.02 (0.93-1.08); PARTIAL THROMBOPLASTIN TIME 27.2 Seconds (25.1-36.5); PROTHROMBIN TIME 11.6 SECONDS (9.4-12.5)
[2017-05-01 01:21] LABS: PH,URINE 5.5 (4.7-8.0); URINE BILIRUBIN SMALL (NEGATIVE); URINE BLOOD SMALL (NEGATIVE); URINE GLUCOSE (UA) NEGATIVE (NEGATIVE); URINE LEUKOCYTE ESTERASE NEGATIVE Leu/uL (NEGATIVE); URINE NITRATE NEGATIVE (NEGATIVE); URINE PROTEIN 30 mg/dL (<30 mg/dL); URINE UROBILINOGEN 0.2 E.U./dL (<1 E.U./dL)
[2017-05-01 01:23] LABS: URINE COLOR YELLOW (YELLOW)
[2017-05-01 01:25] LABS: URINE APPEARANCE SL CLOUDY (CLEAR)
[2017-05-01 01:59] LABS: URINE BACTERIA MOD (NEG); URINE EPITHELIAL CELLS 0 - 2 /hpf (0-5); URINE WBC 0 - 2 /hpf (0-6)
[2017-05-01] MEDS ORDERED: Influenza Vaccine 60 mcg/0.5 mL SYR (4YR UP) IM ONE (02:30)
[2017-05-01 07:38] LABS: MEAN CELL VOLUME 98.3 fl (80.0-105.0); MEAN CORPUSCULAR HEMOGLOBIN 33.3 pg (25.0-35.0); MEAN CORPUSCULAR HGB CONC 33.9 g/dl (31.0-37.0); MEAN PLATELET VOLUME 11.5 fl (7.0-11.0); RBC 2.4 10^6/uL (3.5-6.1); RED CELL DISTRIBUTION WIDTH 14.1 % (11.5-14.5); WHITE BLOOD COUNT 7.4 10^3/ul (4.5-11.0)
[2017-05-01] MEDS: Insulin Reg-MEDIUM-Coverage SC SCH ×4 (08:00→22:22)
[2017-05-01 08:01] LABS: ALB/GLOB RATIO 1.4 (1.1-1.8); ALBUMIN 3.3 g/dL (3.0-4.8); CALCIUM 9.4 mg/dL (8.4-10.5)
--- NOTE | 2017-05-01 09:21 | RAD ---
HISTORY: medical clearance COMPARISON: 04/23/2017. FINDINGS: LUNGS: The right lung is well inflated and clear. There is scarring in the left lateral lung base. PLEURA: No significant pleural effusion identified, no pneumothorax apparent. Persistent left pleural thickening. CARDIOVASCULAR: Normal. OSSEOUS STRUCTURES: No significant abnormalities. VISUALIZED UPPER ABDOMEN: Normal. OTHER FINDINGS: There is chronic elevation of the left hemidiaphragm. IMPRESSION: No active pulmonary disease.
[2017-05-01] MEDS: Sodium Chloride 0.9% 1,000 ML IV SCH (09:32)
[2017-05-01 09:57] LABS: CREATININE,RANDOM URINE 86 mg/dL; TOTAL PROTEIN,RANDOM URINE 31 mg/L
--- NOTE | 2017-05-01 10:24 | CARD ---
APPROVED REPORT EKG Measurement Heart [id number] <Conclusion> Normal sinus rhythm Normal ECG No change
--- NOTE | 2017-05-01 13:25 | US ---
PROCEDURE: Right lower extremity venous US HISTORY: Leg pain and swelling. Evaluate for DVT. PHYSICIAN(S): Zoran Metz M.D. TECHNIQUE: Duplex sonography and color-flow Doppler with graded compression were used to evaluate the deep venous system of the right lower extremity. The exam is limited by body habitus and edema. The tibial veins are not well seen. FINDINGS: The visualized deep venous system of the right lower extremity is sonographically normal and compressible. Normal waveforms and augmentation are seen. There is no sonographic evidence for deep venous thrombosis in the visualized segments of the right lower extremity. IMPRESSION: 1. No sonographic evidence for deep venous thrombosis in the visualized segments of the right lower extremity. 2. Limited study
--- NOTE | 2017-05-01 16:08 | CP.PCM.CON ---
<Linda Chavarria - Last Filed: 05/01/17 16:07> History of Present Illness - History of Present Illness History of Present Illness: S&E at bedside earlier today, chart reviewed. Request for GI consult is for GI bleed. HPI: This is a 66-year-old male with a past medical history of hyperlipidemia, hypertension, peripheral vascular disease, diabetes mellitus, GERD came to the emergency room with complaints of intermittent epigastric pain over a month. The pain has become severe within the past week, the patient does endorse nausea and vomiting. denies any change in bowel habits, no reports of hematemesis or melena. The patient reports decreased appetite, secondary to food tasting "funny". Denies any symptoms of dysphagia. She denies having endoscopy, reports that he did have a colonoscopy many years ago, does not recall the findings. Patient had also complained of lower back pain radiating to right lower extremity denies any history of fall. No reports of weight loss.on admission he had a CT scan of abdomen and pelvis and this showed no mural thickening in the colon, he'll minimally distended loops of the small bowel, likely ileus, perinephric stranding with bladder wall thickening, gallbladder showed mild distention and calcified gallstones, no ductal dilatation mildly enlarged right iliac lymph nodes. He also had an abdominal ultrasound showed cholelithiasis, no CBD dilatation and fatty liver, valvular was done which was negative. Past medical history: Hypertension, neurovascular, pneumonia, diabetes mellitus type 2, right leg ulcer, history of falls Surgical history: Left lower lobectomy, coronary stent 1 Allergies: No known drug allergies medications: Medications: Reviewed , as per MAR , significant for PLAVIX, last dose 04/30/17 Family history: Noncontributory time ROS: Systems reviewed with positive finding see HPI Past Patient History - Infectious Disease Hx of Infectious Diseases: None - Tetanus Immunizations Tetanus Immunization: Unknown - Past Medical History & Family History Past Medical History?: Yes - Past Social History Smoking Status: Former Smoker - CARDIAC Hx Cardiac Disorders: Yes Hx Hypertension: Yes Hx Peripheral Vascular Disease: Yes - PULMONARY Hx Respiratory Disorders: Yes Hx Pneumonia: Yes (1995) Other/Comment: smoker / Lobectomy - NEUROLOGICAL Hx Neurological Disorder: No - HEENT Hx HEENT Problems: No - RENAL Hx Chronic Kidney Disease: No - ENDOCRINE/METABOLIC Hx Endocrine Disorders: Yes Hx Diabetes Mellitus Type 2: Yes - HEMATOLOGICAL/ONCOLOGICAL Hx Blood Disorders: No - INTEGUMENTARY Hx Dermatological Problems: Yes Other/Comment: ULCER RIGHT LEG - MUSCULOSKELETAL/RHEUMATOLOGICAL Hx Falls: Yes - GASTROINTESTINAL Hx Gastrointestinal Disorders: No - GENITOURINARY/GYNECOLOGICAL Hx Genitourinary Disorders: No - PSYCHIATRIC Hx Psychophysiologic Disorder: No Hx Depression: No - SURGICAL HISTORY Hx Cardiac Catheterization: Yes Hx Coronary Stent: Yes (x1) Other/Comment: LOWER LEFT LOBECTOMY - ANESTHESIA Hx Anesthesia: Yes Hx Anesthesia Reactions: No Hx Malignant Hyperthermia: No Meds Allergies/Adverse Reactions: Allergies Allergy/AdvReac Type Severity Reaction Status Date / Time No Known Allergies Allergy Verified 04/30/17 19:31 - Medications Medications: Current Medications Acarbose (Precose 50 Mg Tab) 50 mg PO TID [facility] Last Admin: 05/01/17 13:11 Dose: 50 mg Aspirin (Ecotrin) 81 mg PO DAILY [facility] Last Admin: 05/01/17 09:32 Dose: 81 mg Sodium Chloride (Sodium Chloride 0.9%) 1,000 mls @ 50 mls/hr IV .Q20H [facility] Stop: 05/03/17 01:14 Last Admin: 05/01/17 09:32 Dose: 50 mls/hr Insulin Human Regular (Humulin R Med) 0 units SC ACHS [facility] PRN Reason: Protocol Last Admin: 05/01/17 11:54 Dose: Not Given Metoprolol Tartrate (Lopressor) 25 mg PO Q12 [facility] Last Admin: 05/01/17 13:11 Dose: 25 mg Physical Exam - Constitutional Appears: No Acute Distress - Head Exam Head Exam: NORMOCEPHALIC - Eye Exam Eye Exam: Normal appearance. absent: Scleral icterus - ENT Exam ENT Exam: Mucous Membranes Moist, Normal Exam - Neck Exam Neck exam: Positive for: Normal Inspection - Respiratory Exam Respiratory Exam: NORMAL BREATHING PATTERN. absent: Respiratory Distress - Cardiovascular Exam Cardiovascular Exam: +S1, +S2 - GI/Abdominal Exam GI & Abdominal Exam: Soft. absent: Guarding (idea), Tenderness - Extremities Exam Extremities exam: Positive for: pedal pulses present. Negative for: calf tenderness, pedal edema - Neurological Exam Neurological exam: Alert, Oriented x3 - Skin Skin Exam: Dry, Warm Results - Vital Signs Recent Vital Signs: Last Vital Signs Temp 98.3 F 05/01/17 06:00 Pulse 84 05/01/17 10:00 Resp 18 05/01/17 06:00 BP 119/53 L 05/01/17 06:00 Pulse Ox 98 05/01/17 06:00 - Labs Result Diagrams: 05/01/17 07:00 05/01/17 07:00 Labs: Laboratory Results - last 24 hr 05/01/17 05/01/17 05/01/17 01:00 05:30 07:00 WBC 7.4 RBC 2.40 L Hgb 8.0 L Hct 23.6 L MCV 98.3 MCH 33.3 MCHC 33.9 RDW 14.1 Plt Count 169 MPV 11.5 H Sodium Potassium Chloride Carbon Dioxide Anion Gap BUN Creatinine Est GFR ( Amer) Est GFR (Non-Af Amer) POC Glucose (mg/dL) Random Glucose Calcium Total Bilirubin AST ALT Alkaline Phosphatase Total Protein Albumin Globulin Albumin/Globulin Ratio Urine Color Yellow Urine Appearance Sl cloudy Urine pH 5.5 Ur Specific [place] 1.025 Urine Protein 30 H Urine Glucose (UA) Negative Urine Ketones Negative Urine Blood Small H Urine Nitrate Negative Urine Bilirubin Small H Urine Urobilinogen 0.2 Ur Leukocyte Esterase Negative Urine RBC 1 - 3 Urine WBC 0 - 2 Ur Epithelial Cells 0 - 2 Urine Bacteria Mod Ur Random Creatinine U Random Total Protein Ur Random Sodium Blood Type B POSITIVE Antibody Screen Negative BBK History Checked Patient has bt 05/01/17 05/01/17 05/01/17 07:00 07:39 09:30 WBC RBC Hgb Hct MCV MCH MCHC RDW Plt Count MPV Sodium 136 Potassium 5.2 H Chloride 103 Carbon Dioxide 21 Anion Gap 17 BUN 38 H Creatinine 7.1 H Est GFR ( Amer) 9 Est GFR (Non-Af Amer) 8 POC Glucose (mg/dL) 80 Random Glucose 73 Calcium 9.4 Total Bilirubin 0.3 AST 28 ALT 33 Alkaline Phosphatase 57 Total Protein 5.6 L Albumin 3.3 Globulin 2.4 Albumin/Globulin Ratio 1.4 Urine Color Urine Appearance Urine pH Ur Specific [place] Urine Protein Urine Glucose (UA) Urine Ketones Urine Blood Urine Nitrate Urine Bilirubin Urine Urobilinogen Ur Leukocyte Esterase Urine RBC Urine WBC Ur Epithelial Cells Urine Bacteria Ur Random Creatinine 86 U Random Total Protein 31 Ur Random Sodium 39 Blood Type Antibody Screen BBK History Checked 05/01/17 10:54 WBC RBC Hgb Hct MCV MCH MCHC RDW Plt Count MPV Sodium Potassium Chloride Carbon Dioxide Anion Gap BUN Creatinine Est GFR ( Amer) Est GFR (Non-Af Amer) POC Glucose (mg/dL) 103 Random Glucose Calcium Total Bilirubin AST ALT Alkaline Phosphatase Total Protein Albumin Globulin Albumin/Globulin Ratio Urine Color Urine Appearance Urine pH Ur Specific [place] Urine Protein Urine Glucose (UA) Urine Ketones Urine Blood Urine Nitrate Urine Bilirubin Urine Urobilinogen Ur Leukocyte Esterase Urine RBC Urine WBC Ur Epithelial Cells Urine Bacteria Ur Random Creatinine U Random Total Protein Ur Random Sodium Blood Type Antibody Screen BBK History Checked Assessment & Plan - Assessment and Plan (Free Text) Assessment: Assessment: Anemia, rule out GI bleed Acute renal failure GERD Hyperlipidemia Peripheral vascular disease History of CAD status post stent DM Plan: Continue to monitor H&H Plan for EGD to, diagnostic, was on Plavix Nothing by mouth after midnight except medication Diet as tolerated hold am dose of Aspirin on 05/02/17, till after endo Consider PPI after endoscopy, patient received dose of Protonix 80 mg in the ER as well as Pepcid in [facility] as per cardio/renal check iron studies, B12, folate, ferritin Thank you for this consult and for allowing us to participate in your patient's care, further recommendations based upon course. Seen and discussed with Dr. Phipps. <Daine Phipps V - Last Filed: 05/01/17 23:25> Meds - Medications Medications: Current Medications Acarbose (Precose 50 Mg Tab) 50 mg PO TID [facility] Last Admin: 05/01/17 17:06 Dose: 50 mg Aspirin (Ecotrin) 81 mg PO DAILY [facility] Last Admin: 05/01/17 09:32 Dose: 81 mg Sodium Chloride (Sodium Chloride 0.9%) 1,000 mls @ 50 mls/hr IV .Q20H [facility] Stop: 05/03/17 01:14 Last Admin: 05/01/17 09:32 Dose: 50 mls/hr Insulin Human Regular (Humulin R Med) 0 units SC ACHS [facility] PRN Reason: Protocol Last Admin: 05/01/17 22:22 Dose: Not Given Metoprolol Tartrate (Lopressor) 25 mg PO Q12 [facility] Last Admin: 05/01/17 22:36 Dose: Not Given Results - Vital Signs Recent Vital Signs: Last Vital Signs Temp 98 F 05/01/17 16:00 Pulse 80 05/01/17 22:36 Resp 19 05/01/17 16:00 BP 109/65 05/01/17 22:36 Pulse Ox 99 05/01/17 16:00 - Labs Result Diagrams: 05/01/17 07:00 05/01/17 07:00 Labs: Laboratory Results - last 24 hr 05/01/17 05/01/17 05/01/17 01:00 05:30 07:00 WBC 7.4 RBC 2.40 L Hgb 8.0 L Hct 23.6 L MCV 98.3 MCH 33.3 MCHC 33.9 RDW 14.1 Plt Count 169 MPV 11.5 H Sodium Potassium Chloride Carbon Dioxide Anion Gap BUN Creatinine Est GFR ( Amer) Est GFR (Non-Af Amer) POC Glucose (mg/dL) Random Glucose Calcium Total Bilirubin AST ALT Alkaline Phosphatase Total Protein Albumin Globulin Albumin/Globulin Ratio Urine Color Yellow Urine Appearance Sl cloudy Urine pH 5.5 Ur Specific [place] 1.025 Urine Protein 30 H Urine Glucose (UA) Negative Urine Ketones Negative Urine Blood Small H Urine Nitrate Negative Urine Bilirubin Small H Urine Urobilinogen 0.2 Ur Leukocyte Esterase Negative Urine RBC 1 - 3 Urine WBC 0 - 2 Ur Epithelial Cells 0 - 2 Urine Bacteria Mod Ur Random Creatinine U Random Total Protein Ur Random Sodium Blood Type B POSITIVE Antibody Screen Negative BBK History Checked Patient has bt 05/01/17 05/01/17 05/01/17 07:00 07:39 09:30 WBC RBC Hgb Hct MCV MCH MCHC RDW Plt Count MPV Sodium 136 Potassium 5.2 H Chloride 103 Carbon Dioxide 21 Anion Gap 17 BUN 38 H Creatinine 7.1 H Est GFR ( Amer) 9 Est GFR (Non-Af Amer) 8 POC Glucose (mg/dL) 80 Random Glucose 73 Calcium 9.4 Total Bilirubin 0.3 AST 28 ALT 33 Alkaline Phosphatase 57 Total Protein 5.6 L Albumin 3.3 Globulin 2.4 Albumin/Globulin Ratio 1.4 Urine Color Urine Appearance Urine pH Ur Specific [place] Urine Protein Urine Glucose (UA) Urine Ketones Urine Blood Urine Nitrate Urine Bilirubin Urine Urobilinogen Ur Leukocyte Esterase Urine RBC Urine WBC Ur Epithelial Cells Urine Bacteria Ur Random Creatinine 86 U Random Total Protein 31 Ur Random Sodium 39 Blood Type Antibody Screen BBK History Checked 05/01/17 05/01/17 05/01/17 10:54 15:54 21:23 WBC RBC Hgb Hct MCV MCH MCHC RDW Plt Count MPV Sodium Potassium Chloride Carbon Dioxide Anion Gap BUN Creatinine Est GFR ( Amer) Est GFR (Non-Af Amer) POC Glucose (mg/dL) 103 112 H 119 H Random Glucose Calcium Total Bilirubin AST ALT Alkaline Phosphatase Total Protein Albumin Globulin Albumin/Globulin Ratio Urine Color Urine Appearance Urine pH Ur Specific [place] Urine Protein Urine Glucose (UA) Urine Ketones Urine Blood Urine Nitrate Urine Bilirubin Urine Urobilinogen Ur Leukocyte Esterase Urine RBC Urine WBC Ur Epithelial Cells Urine Bacteria Ur Random Creatinine U Random Total Protein Ur Random Sodium Blood Type Antibody Screen BBK History Checked Attending/Attestation - Attestation I have personally seen and examined this patient.: Yes I have fully participated in the care of the patient.: Yes I have reviewed all pertinent clinical information: Yes
--- NOTE | 2017-05-01 22:25 | CON ---
DATE: 05/01/2017 LOCATION: The patient is in room 363, bed 1. REASON FOR CONSULTATION: Coronary artery disease, hypertension, abdominal pain, renal failure, stool guaiac in emergency room positive, questionable continuation of the Plavix. HISTORY OF PRESENT ILLNESS: Patient is a 66-year-old male who is a known case of coronary artery disease status post circumflex stent put in on 12/16/2013; also a known case of diabetes, high blood pressure, hyperlipidemia, obesity, admitted with a history that is in 3 to 4 days, he has been vomiting, loss of appetite, he gets a 2 to 3 times of liquid bowel movement, having pain in the right back and sometime in the front, and right now his pain is in the right lower inguinal area. He denies chest pain, shortness of breath, palpitation. He states that sometime he gets epigastric pain also. PAST MEDICAL HISTORY: Patient had a pneumonia and following that, had a lobectomy. Chest x-ray shows scar on the left lower base. Patient known to have hyperlipidemia, obesity, diabetes, high blood pressure; also he states that probably he had appendectomy. PERSONAL HISTORY: Smoking one pack a day till 3 months ago when he stopped. He used to drink moderate, but stopped about 2 years ago. ALLERGIES: DENIES ANY ALLERGIES. FAMILY HISTORY: Mother had diabetes, high blood pressure, coronary artery disease. MEDICATIONS AT HOME: The patient was on Crestor 10 mg daily, metformin 1000 mg b.i.d., imatinib mesylate 400 mg p.o. daily, Lasix 20 mg daily, Pepcid one tablet p.o. b.i.d., Plavix 75 mg daily, 81 mg aspirin one tablet daily, acarbose 50 mg t.i.d., potassium 10 mEq daily. REVIEW OF SYSTEMS: All the systems reviewed; positive mentioned in the history. PHYSICAL EXAMINATION VITAL SIGNS: Blood pressure 119/53, respiration 18, pulse 85, temperature 98.3. HEENT: Head is normocephalic. Eyes, pupils normal. Conjunctivae, pale. NECK: JVP low. Carotids equal. THORAX: AP diameter normal. LUNGS: Clear. CARDIOVASCULAR: S1 and S2. ABDOMEN: Soft. No organomegaly. Bowel sounds normal. EXTREMITIES: No clubbing. No cyanosis. LABORATORY DATA: Shows WBC 7.4, hemoglobin 8.0, hematocrit 23.6, platelets 169. Yesterday on admission, the patient's potassium was 5.8, but today is 5.2. Sodium 136, chloride 103. BUN yesterday was 42, today is 38. Creatinine yesterday 7.8, today is 7.1. Glucose 73, another glucose 103. AST and ALT normal. Total protein 5.6, albumin 3.3. Chest x-ray clear except scar on the left lower base, history of previous lobectomy. EKG showed regular sinus rhythm, tall peaked T wave in V1 to V3 suggestive of hyperkalemia on admission. DIAGNOSES: Renal failure, hyperkalemia, anemia, history of coronary artery disease, stent insertion in 12/16/2013, back and abdominal pain, obesity, hyperlipidemia, diabetes, hypertension. Previous cardiac workup, patient had a stent put in the circumflex on 12/16/2013. Patient had a stress test on 12/11/2016, it showed normal ejection fraction of 55%. Echo was done on 12/09/2016 showed normal chamber sizes, LV ejection fraction 65%, trivial MR, TR, AI; RVSP only 19 mmHg. PLAN: The patient's stool guaiac in emergency room reported as positive, and the patient's stent was in 12/16/2013, so we can hold Plavix until GI issues are resolved, and from cardiac point of view, if patient needs any GI procedure, he can go for it at a moderate risk. Patient is getting IV fluid therapy, we will continue that. Patient is also on aspirin 81 mg daily. Patient yesterday received Kayexalate. Patient is on acarbose 50 mg t.i.d. We will add metoprolol 25 mg b.i.d. to the therapy. At present, patient does not have any anginal symptoms. We will follow with you. Jason Almeida MD
[2017-05-02] MEDS: Sodium Chloride 0.9% 1,000 ML IV SCH ×3 (05:19→23:53)
[2017-05-02 06:33] LABS: BASO # 0.03 K/mm3 (0.0-2.0); BASO % 0.5 % (0.0-3.0); EOS # 0.4 (0.0-0.7); GRAN # 3.63 (1.4-6.5); GRAN % 61.9 % (50.0-68.0); HEMOGLOBIN 8.1 g/dL (14.0-18.0); LYMPH # 1.1 (1.2-3.4); LYMPH % 18.8 % (22.0-35.0); MEAN CELL VOLUME 96.8 fl (80.0-105.0); MEAN CORPUSCULAR HEMOGLOBIN 32.7 pg (25.0-35.0); MEAN CORPUSCULAR HGB CONC 33.8 g/dl (31.0-37.0); MONO # 0.7 (0.1-0.6); MONO % 11.8 % (1.0-6.0); RBC 2.48 10^6/uL (3.5-6.1)
[2017-05-02 06:38] LABS: IRON 97 ug/dL (45-180)
[2017-05-02 06:44] LABS: CALCIUM 8.9 mg/dL (8.4-10.5); MAGNESIUM 1.5 mg/dL (1.7-2.2)
[2017-05-02 06:47] LABS: % IRON SATURATION 38 % (20-55); TOTAL IRON BINDING CAPACITY 255 ug/dL (261-462)
[2017-05-02 06:52] LABS: WHITE BLOOD COUNT 5.9 10^3/ul (4.5-11.0)
[2017-05-02] MEDS: Insulin Reg-MEDIUM-Coverage SC SCH ×4 (07:52→21:32)
--- NOTE | 2017-05-02 09:05 | HP ---
HISTORY OF PRESENT ILLNESS: This is a 66-year-old male who is coming into the hospital because of abdominal discomfort. The patient states that he was having some epigastric pain. He states that it was difficulty to quantify, it is about 4 to 5/10. He has a history of hypertension, dyslipidemia, peripheral arterial disease, diabetes type 2, GERD. The patient states that he was having nausea. He had vomited. He was having changes in his p.o. intake. He says the food was tasting funny as well. He had a CAT scan done in the emergency room that showed no significant abnormalities. He was found to have a creatinine that was significantly elevated, which is new for him. He states that he is feeling better this morning. He has no complaints of any headaches or dizziness. No nausea. No vomiting. No dysuria or frequency. No nocturia. PAST MEDICAL HISTORY: Diabetes type 2, morbid obesity, hypertension, cholelithiasis, and chronic venous ulcers. SOCIAL HISTORY: The patient denies smoking or drinking alcohol. FAMILY HISTORY: Noncontributory. HOME MEDICATIONS: Have been reviewed. ALLERGIES: HE HAS NO KNOWN DRUG ALLERGIES. PHYSICAL EXAMINATION: VITAL SIGNS: Temperature is 98, pulse of 80, blood pressure 120/76, respirations 19, O2 saturation is 99%. GENERAL: The patient is lying in bed, flat, comfortable. HEENT: No oral lesion. Anicteric sclerae. Moist mucosa. NECK: No JVD, adenopathy, or thyromegaly. CARDIOVASCULAR: S1 and S2, regular. No murmurs, rubs, or gallops. LUNGS: Clear to auscultation bilaterally. No wheeze, rales, or rhonchi. ABDOMEN: Bowel sounds are positive, soft, nontender and nondistended. EXTREMITIES: No cyanosis, clubbing or edema. DIAGNOSTIC DATA: His EKG done, shows heart rate of 96, sinus rhythm, QTc 396. He had ultrasound of the gallbladder that showed cholelithiasis. His CT of the abdomen has been reviewed. His chest x-ray done, shows no infiltrates. He has an extremity ultrasound done that shows no evidence of DVT. LABORATORY DATA: His labs have been reviewed. His white count of 8.9, repeat is 8.0. His creatinine is 7.8, repeat is 7.1. He has an INR that is 1.02. He has urine sodium that is 39. ASSESSMENT: 1. Acute kidney injury. 2. Diabetes type 2. 3. Morbid obesity with a BMI of 39. 4. Hypertension. 5. Cholelithiasis. 6. Chronic venous ulcers. 7. Gastrointestinal bleed. PLAN: The patient is currently on aspirin. He is going to continue on IV fluids. He was given Kayexalate for hyperkalemia. He is on acarbose. The patient is going to be on renal diet. The patient's labs have been ordered. He also may have a GI bleed. I will get Dr. Phipps and Dr. Gunderson on the case. We will wait for the results from the consultants. He is comfortable. He has no signs of wounds on his legs. Asif Welch MD
[2017-05-02] MEDS: Potassium & Sodium Phosphate PO SCH ×2 (09:06→17:54)
[2017-05-02] MEDS: Magnesium Oxide 400 mg Tab UD PO SCH ×4 (09:06→17:54)
--- NOTE | 2017-05-02 10:48 | PN ---
DATE: 05/02/2017 SUBJECTIVE: Patient has no complaints of any chest pain. No shortness of breath. No headaches or dizziness. PHYSICAL EXAMINATION: VITAL SIGNS: Temperature is 98, pulse of 80, blood pressure is 109/65, respirations 19. GENERAL: The patient is lying in bed, flat, comfortable. HEENT: No oral lesion. Anicteric sclerae. Moist mucosa. NECK: No JVD, adenopathy, or thyromegaly. CARDIOVASCULAR: S1 and S2, regular. No murmurs, rubs, or gallops. LUNGS: Clear to auscultation bilaterally. No wheeze, rales, or rhonchi. ABDOMEN: Bowel sounds are positive, soft, nontender and nondistended. EXTREMITIES: no cyanosis, clubbing or edema. LABORATORY DATA: White count is 7.4, hemoglobin is 8.0, creatinine is 7.1. These are all labs from yesterday. ASSESSMENT: 1. Acute kidney injury. 2. Anemia secondary to gastrointestinal bleed. 3. Hyperkalemia, improving. 4. Coronary artery disease with stent. 5. Diabetes type 2. 6. Obese with a BMI of 39. 7. Hypertension. 8. Cholelithiasis. PLAN: The patient is comfortable. He has no complaint of any pain. He is receiving a tablet for his diabetes with IV fluids. The patient is receiving metoprolol and aspirin for his coronary artery disease. He is anemic, so I will hold his aspirin. He has been followed by GI for further management. Iron studies have been ordered as well on day 12. Repeat blood work has been ordered to evaluate his creatinine. He has been taking NSAIDs maybe because of his GI bleed as well as his elevation in his creatinine. Asif Welch MD
[2017-05-02] MEDS ORDERED: Propofol 10 mg/ml Inj (20 ML) ONE (11:04)
[2017-05-02] MEDS ORDERED: Darbepoetin Alfa 100 mcg/ml Inj SC ONE (11:23)
[2017-05-02] MEDS ORDERED: Lactated Ringer's 1,000 ML IV SCH (11:45)
--- NOTE | 2017-05-02 16:00 | PN ---
DATE: 05/02/2017 LOCATION: Patient is in room 365, bed 1. REASON FOR CONSULTATION AND FOLLOWUP: Coronary artery disease, hypertension, abdominal pain, renal failure, stool guaiac in ER positive. SUBJECTIVE: Patient lying flat in bed without chest pain, shortness of breath, or palpitation. PHYSICAL EXAMINATION: VITAL SIGNS: Blood pressure 128/55, respiratory rate 20, pulse 77, temperature 98.2. HEENT: Head is normocephalic. Eyes: Pupils normal. Conjunctivae pale. NECK: JVP low. Carotids equal. THORAX: AP diameter normal. LUNGS: Clear. CARDIOVASCULAR: S1, S2. ABDOMEN: Protuberant. No organomegaly. EXTREMITIES: No clubbing. No cyanosis. LABORATORY DATA: WBC 5.9, hemoglobin 8.1, hematocrit 24, and platelet 180. Sodium 143, potassium 4.5. BUN 29, creatinine 5.1. On admission, BUN was 42, creatinine was 7.8. Glucose 95. DIAGNOSES: Renal failure, hyperkalemia, anemia, history of coronary artery disease, stent insertion in 12/16/2013, abdominal pain, obesity, hyperlipidemia, diabetes, hypertension. Patient had cardiac catheterization in 12/16/2013, when he had stent inserted into circumflex. Stress test 12/11/2016, was normal with elevated ejection fraction 55%. Echo on 12/09/2016, showed normal chamber sizes, LV ejection fraction 65%, trivial MR, TR, AI, RVSP only 99 mmHg. PLAN: Clinically from a cardiac point of view, patient is stable and patient is on aspirin 81 mg daily, metoprolol tartrate 25 mg q. 12 hours. Patient is getting IV fluid therapy. We will continue present therapy and will follow with you. If patient need any procedure from renal failure or GI point of view, he can go at moderate risk from cardiac point of view. There is no absolute contraindication from cardiac point of view. Jason Almeida MD
--- NOTE | 2017-05-02 16:01 | CP.PCM.CON ---
History of Present Illness - History of Present Illness History of Present Illness: patient is a 66 year old male well known to me from office. 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 He is admitted with epigastric pain. Blood work showed anemia -new onset. he also presented with ARF. No bleeding from any site. He has degenerative disc disease for which he takes NSAIDS. Review of Systems - Constitutional Constitutional: Fatigue, Malaise - EENT Eyes: absent: As Per HPI, Blind Spots, Blurred Vision, Change in Vision, Decreased Night Vision, Diplopia, Discharge, Dry Eye, Exophthalmos, Floaters, Irritation, Itchy Eyes, Loss of Peripheral Vision, Pain, Photophobia, Requires Corrective Lenses, Sees Flashes, Spots in Vision, Tunnel Vision, Other Visual Disturbances, Loss of Vision, Other Ears: absent: As Per HPI, Decreased Hearing, Ear Discharge, Ear Pain, Tinnitus, Abnormal Hearing, Disequilibrium, Dizziness, Other Nose/Mouth/Throat: absent: As Per HPI, Epistaxis, Nasal Congestion, Nasal Discharge, Nasal Obstruction, Nasal Trauma, Nose Pain, Post Nasal Drip, Sinus Pain, Sinus Pressure, Bleeding Gums, Change in Voice, Dental Pain, Dry Mouth, Dysphagia, Halitosis, Hoarsness, Lip Swelling, Mouth Lesions, Mouth Pain, Odynophagia, Sore Throat, Throat Swelling, Tongue Swelling, Facial Pain, Neck Pain, Neck Mass, Other - Respiratory Respiratory: absent: As Per HPI, Cough, Dyspnea, Hemoptysis, Dyspnea on Exertion , Wheezing, Snoring, Stridor, Pain on Inspiration, Chest Congestion, Excessive Mucous Production, Change in Mucous Color, Pain with Coughing, Other - Gastrointestinal Gastrointestinal: As Per HPI - Genitourinary Genitourinary: absent: As Per HPI, Change in Urinary Stream, Difficulty Urinating, Dysuria, Flank Pain, Hematuria, Pyuria, Nocturia, Urinary Incontinence, Urinary Frequency, Urinary Hesitance, Urinary Urgency, Voiding Freq/Small Amts, Freq UTI, Hx Renal/Bladder Calculi, Hx /Renal Surgery, Bladder Distension, Other - Musculoskeletal Musculoskeletal: absent: As Per HPI, Abnormal Gait, Arthralgias, Atrophy, Back Pain, Deformity, Joint Swelling, Limited Range of Motion, Loss of Height, Muscle Cramps, Muscle Weakness, Myalgias, Neck Pain, Numbness, Radiating Pain into Limb, Stiffness, Tingling, Other - Integumentary Integumentary: As Per HPI - Neurological Neurological: absent: As Per HPI, Abnormal Gait, Abnormal Hearing, Abnormal Movements, Abnormal Speech, Behavioral Changes, Burning Sensations, Confusion, Convulsions, Disequilibrium, Dizziness, Numbness, Focal Weakness, Frequent Falls , Headaches, Lack of Coordination, Loss of Vision, Memory Loss, Paresthesias, Radicular Pain, Restless Legs, Sensory Deficit, Syncope, Tingling, Tremor, Vertigo, Weakness, Other Visual Disturbances, Other - Endocrine Endocrine: absent: As Per HPI, Change in Body Appearance, Change in Libido, Cold Intolorance, Deepening of Voice, Excessive Sweating, Fatigue, Flushing, Heat Intolorance, Increase in Ring/Shoe/Hat Size, Palpitations, Polydipsia, Polyphagia, Polyuria, Other - Hematologic/Lymphatic Hematologic: As Per HPI Past Patient History - Infectious Disease Hx of Infectious Diseases: None - Tetanus Immunizations Tetanus Immunization: Unknown - Past Medical History & Family History Past Medical History?: Yes - Past Social History Smoking Status: Former Smoker - CARDIAC Hx Cardiac Disorders: Yes Hx Hypertension: Yes Hx Peripheral Vascular Disease: Yes - PULMONARY Hx Respiratory Disorders: Yes Hx Pneumonia: Yes (1995) Other/Comment: smoker / Lobectomy - NEUROLOGICAL Hx Neurological Disorder: No - HEENT Hx HEENT Problems: No - RENAL Hx Chronic Kidney Disease: No - ENDOCRINE/METABOLIC Hx Endocrine Disorders: Yes Hx Diabetes Mellitus Type 2: Yes - HEMATOLOGICAL/ONCOLOGICAL Hx Blood Transfusions: No - INTEGUMENTARY Hx Dermatological Problems: Yes Other/Comment: ULCER RIGHT LEG - MUSCULOSKELETAL/RHEUMATOLOGICAL Hx Falls: Yes - GASTROINTESTINAL Hx Gastrointestinal Disorders: No - GENITOURINARY/GYNECOLOGICAL Hx Genitourinary Disorders: No - PSYCHIATRIC Hx Psychophysiologic Disorder: No Hx Depression: No - SURGICAL HISTORY Hx Surgeries: Yes (LEFT LOBECTOMY) - ANESTHESIA Hx Anesthesia Reactions: No Hx Malignant Hyperthermia: No Meds Allergies/Adverse Reactions: Allergies Allergy/AdvReac Type Severity Reaction Status Date / Time No Known Allergies Allergy Verified 04/30/17 19:31 - Medications Medications: Current Medications Acarbose (Precose 50 Mg Tab) 50 mg PO TID [facility] Last Admin: 05/02/17 13:51 Dose: 50 mg Aspirin (Ecotrin) 81 mg PO DAILY [facility] Last Admin: 05/01/17 09:32 Dose: 81 mg Sodium Chloride (Sodium Chloride 0.9%) 1,000 mls @ 50 mls/hr IV .Q20H [facility] Stop: 05/03/17 01:14 Last Admin: 05/02/17 05:19 Dose: 50 mls/hr Sodium Chloride (Sodium Chloride 0.9%) 1,000 mls @ 100 mls/hr IV .Q10H [facility] Last Admin: 05/02/17 14:00 Dose: 100 mls/hr Insulin Human Regular (Humulin R Med) 0 units SC ACHS [facility] PRN Reason: Protocol Last Admin: 05/02/17 12:20 Dose: Not Given Magnesium Oxide (Mag-Ox) 400 mg PO TID [facility] Stop: 05/05/17 10:01 Last Admin: 05/02/17 13:50 Dose: 400 mg Metoprolol Tartrate (Lopressor) 25 mg PO Q12 [facility] Last Admin: 05/02/17 09:05 Dose: 25 mg Potassium Phos/Sodium Phos (Neutra-Phos) 1 pkt PO BID [facility] Stop: 05/05/17 10:01 Last Admin: 05/02/17 09:06 Dose: Not Given Physical Exam - Constitutional Appears: Non-toxic - Head Exam Head Exam: ATRAUMATIC, NORMAL INSPECTION, NORMOCEPHALIC - Eye Exam Eye Exam: Normal appearance - ENT Exam ENT Exam: Mucous Membranes Moist - Neck Exam Neck exam: Positive for: Normal Inspection - Respiratory Exam Respiratory Exam: Clear to Auscultation Bilateral - Cardiovascular Exam Cardiovascular Exam: REGULAR RHYTHM, +S1, +S2 - GI/Abdominal Exam GI & Abdominal Exam: Normal Bowel Sounds, Soft - Back Exam Back exam: NORMAL INSPECTION - Neurological Exam Neurological exam: Alert, CN II-XII Intact, Normal Gait, Oriented x3 - Psychiatric Exam Psychiatric exam: Normal Affect - Skin Skin Exam: Normal Color, Warm Results - Vital Signs Recent Vital Signs: Last Vital Signs Temp 98 F 05/02/17 12:33 Pulse 68 05/02/17 12:33 Resp 13 05/02/17 12:33 BP 103/45 L 05/02/17 12:33 Pulse Ox 99 05/02/17 12:33 - Labs Result Diagrams: 05/02/17 06:00 05/02/17 06:00 Labs: Laboratory Results - last 24 hr 05/01/17 05/01/17 05/02/17 15:54 21:23 06:00 WBC RBC Hgb Hct MCV MCH MCHC RDW Plt Count MPV Gran % Lymph % (Auto) [place] % (Auto) Eos % (Auto) Baso % (Auto) Gran # Lymph # (Auto) [place] # (Auto) Eos # (Auto) Baso # (Auto) Sodium 143 Potassium 4.5 Chloride 108 H Carbon Dioxide 25 Anion Gap 14 BUN 29 H Creatinine 5.1 H Est GFR ( Amer) 14 Est GFR (Non-Af Amer) 11 POC Glucose (mg/dL) 112 H 119 H Random Glucose 84 Calcium 8.9 Phosphorus 2.4 L Magnesium 1.5 L Iron TIBC % Saturation Ferritin 196.0 Vitamin B12 587 Folate 6.0 05/02/17 05/02/17 05/02/17 06:00 06:00 07:13 WBC 5.9 D RBC 2.48 L Hgb 8.1 L Hct 24.0 L MCV 96.8 MCH 32.7 MCHC 33.8 RDW 14.0 Plt Count 180 MPV 11.0 Gran % 61.9 Lymph % (Auto) 18.8 L [place] % (Auto) 11.8 H Eos % (Auto) 7.0 H Baso % (Auto) 0.5 Gran # 3.63 Lymph # (Auto) 1.1 L [place] # (Auto) 0.7 H Eos # (Auto) 0.4 Baso # (Auto) 0.03 Sodium Potassium Chloride Carbon Dioxide Anion Gap BUN Creatinine Est GFR ( Amer) Est GFR (Non-Af Amer) POC Glucose (mg/dL) 95 Random Glucose Calcium Phosphorus Magnesium Iron 97 TIBC 255 L % Saturation 38 Ferritin Vitamin B12 Folate Assessment & Plan - Assessment and Plan (Free Text) Assessment: 1. CML : on gleevec in remission. Hold Gleevec for anemia, ARF. 2. ARF : acute. he is being monitored closely . last BUN, creatinine a month ago was normal. 3. Anemia : iron studies showed normal blood iron. anemia is related to ARF. aranesp 200 mcgm SQ one dose . 4. GI : epigastric pain, EGD planned. 5. CV : BP controlled. Cardiology following. Thank you Dr. Welch for allowing us to participate in his care. - Date & Time Date: 05/01/17 Time: 10:00
[2017-05-03 07:53] LABS: HEMOGLOBIN 7.7 g/dL (14.0-18.0); MEAN CELL VOLUME 97.8 fl (80.0-105.0); MEAN CORPUSCULAR HEMOGLOBIN 33.2 pg (25.0-35.0); MEAN CORPUSCULAR HGB CONC 33.9 g/dl (31.0-37.0); RBC 2.32 10^6/uL (3.5-6.1); RED CELL DISTRIBUTION WIDTH 14.6 % (11.5-14.5)
[2017-05-03] MEDS: Insulin Reg-MEDIUM-Coverage SC SCH ×4 (07:55→21:50)
[2017-05-03 08:48] LABS: ALB/GLOB RATIO 1.2 (1.1-1.8); CALCIUM 8.7 mg/dL (8.4-10.5)
--- NOTE | 2017-05-03 08:48 | CP.PCM.PCO ---
Physician Communication Note - Physician Communication Note Physician Communication Note: 2 units PRBC ordered, give one unit today, second unit 05/04.
[2017-05-03] MEDS: Magnesium Oxide 400 mg Tab UD PO SCH ×3 (09:29→17:25)
[2017-05-03] MEDS: Potassium & Sodium Phosphate PO SCH ×2 (09:29→17:25)
[2017-05-03] MEDS: Sodium Chloride 0.9% 1,000 ML IV SCH (09:30)
[2017-05-03 15:55] VITALS: RESP 20
--- NOTE | 2017-05-03 20:37 | PN ---
DATE: 05/03/2017 LOCATION: Patient is in room 365, bed 1. REASON FOR CONSULTATION AND FOLLOWUP: Coronary artery disease, hypertension, abdominal pain, renal failure. Stool guaiac was positive in the emergency room. SUBJECTIVE: Patient lying flat in bed without chest pain, shortness of breath, or palpitation. PHYSICAL EXAMINATION: VITAL SIGNS: Blood pressure 128/69, respirations 20, pulse 72, temperature 98.9. HEENT: Head is normocephalic. Eyes: Pupils normal. Conjunctivae pale. NECK: JVP low. Carotids equal. THORAX: AP diameter normal. LUNGS: Clear. CARDIOVASCULAR: S1, S2. ABDOMEN: Soft, nontender. No organomegaly. Bowel sounds are normal. EXTREMITIES: No clubbing, no cyanosis. LABORATORY DATA: WBC 5.0, hemoglobin 7.7, hematocrit 22.7, platelet 172. Sodium 141, potassium 4.3, BUN 22, creatinine 3.6, random sugar 179. AST and ALT normal, total protein 5.4, albumin 3.0. DIAGNOSES: Renal failure, hyperkalemia, anemia, history of coronary artery disease, stent insertion in 12/16/2013, abdominal pain, obesity, hyperlipidemia, diabetes, hypertension. Last cardiac catheterization in 12/16/2013, when patient had stent inserted into circumflex. Stress test in 12/11/2016, was normal with normal left ventricular ejection fraction of 55%. Echo on 12/09/2016, showed normal chamber sizes, left ventricular ejection fraction of 65%, trivial MR, TR, AI, RVSP only 19 mmHg. PLAN: We will repeat electrolytes, BUN, and CBC in the morning. Patient is on aspirin 81 mg daily, metoprolol 25 b.i.d., magnesium oxide 400 mg p.o. t.i.d., potassium, sodium one packet p.o. b.i.d. Patient is getting IV fluid 100 mL an hour. If hemoglobin and hematocrit continue to be slow, patient may need blood transfusions. We will follow with you. Jason Almeida MD
--- NOTE | 2017-05-03 21:21 | PN ---
DATE: SUBJECTIVE: The patient is a 66-year-old black male, came to emergency room on 04/30/2017 because of abdominal discomfort along with epigastric discomfort. He was found to be in acute kidney injury and hyperkalemia. He has significant past medical history of noninsulin-dependent diabetes, morbid obesity, hypertension, cholelithiasis. He had CT scan of the abdomen and pelvis done that showed perinephric stranding and bladder wall thickening. The patient underwent endoscopy yesterday. PHYSICAL EXAMINATION: GENERAL: On examination today, he is much more awake, alert. He said he feels a lot better. VITAL SIGNS: He is afebrile, pulse 72, respirations 20, blood pressure 128/69. LUNGS: Bilateral fair airflow. No rhonchi or crackle. HEART: S1 and S2 audible. ABDOMEN: Soft, obese. Nontender. No rebound. No guarding. NEUROLOGIC: He is awake, alert, able to communicate. EXTREMITIES: Bilateral legs, he has chronic stasis dermatitis and pigmentation of both shins. LABORATORY DATA: WBC is 5.0, hemoglobin 7.7, hematocrit 22.7, platelet 172. Chemistries: Sodium 141, potassium 4.3, chloride 109, CO2 of 26, BUN 22, creatinine 3.6, blood sugar of 104. Upon arrival, his creatinine 5.1, BUN of 29. ASSESSMENT: 1. Acute renal failure, symptoms resolving. 2. Symptomatic anemia. 3. Hyperkalemia, resolved. 4. History of coronary artery disease, status post angioplasty. 5. Morbid obesity. 6. Hypertension. 7. Hyperlipidemia. 8. Iron-deficiency anemia. 9. Cholelithiasis. PLAN: Currently, the patient is on IV fluid. He is on aspirin 81 daily. Blood sugar is being monitored. Electrolytes are being monitored. We will follow up his CBC, CMP, magnesium and phosphorus level in the a.m. We will follow up this patient in the a.m. Samantha Booth MD
--- NOTE | 2017-05-04 04:17 | PN ---
DATE: 05/03/2017 SUBJECTIVE: This patient was seen and evaluated today. PHYSICAL EXAMINATION: VITAL SIGNS: Temperature is 98.3, pulse 71, blood pressure 128/69. HEENT: Atraumatic, anicteric. NECK: Supple. HEART: S1, S2 heard. LUNGS: Bilateral air entry present. ABDOMEN: Soft. There is no tenderness. EXTREMITIES: There is no cyanosis, no clubbing. LABORATORY DATA: Hemoglobin has dropped to 7.7, hematocrit 22.7, WBC 5.0, platelets 172. Chemistry shows BUN 22, creatinine 3.6. IMPRESSION: This is a 66-year-old patient admitted with acute kidney injury and had epigastric discomfort and anemia. Patient had an endoscopy done which showed no upper gastrointestinal source of blood loss. PLAN: The etiology for anemia is unclear. Since upper GI endoscopy did not reveal any source of blood loss the differential diagnosis should include multifactorial eitiology which include colonic source of blood loss. Patient need colonoscopy. Patient is planned for transfusion 2 units today. Patient was on Plavix until the time of admission. Presently off the Plavix now We will consider scheduling for colonoscopy after discussing with Renal, Dr. Lanier and Dr. Booth. Patient's other past medical problems include coronary artery disease status post PCI, Would continue to follow up LFTs and will check stool for occult blood . Thank you very much for allowing us to participate in the care of the patient. Danie Phipps MD [facility]
[2017-05-04 07:53] LABS: HEMOGLOBIN 9.1 g/dL (14.0-18.0); MEAN CELL VOLUME 96.1 fl (80.0-105.0); MEAN CORPUSCULAR HEMOGLOBIN 32.4 pg (25.0-35.0); MEAN CORPUSCULAR HGB CONC 33.7 g/dl (31.0-37.0); MEAN PLATELET VOLUME 11.3 fl (7.0-11.0); RBC 2.81 10^6/uL (3.5-6.1); RED CELL DISTRIBUTION WIDTH 15.2 % (11.5-14.5); WHITE BLOOD COUNT 5.8 10^3/ul (4.5-11.0)
[2017-05-04 08:24] LABS: ALB/GLOB RATIO 1.2 (1.1-1.8); CALCIUM 8.7 mg/dL (8.4-10.5)
[2017-05-04] MEDS: Insulin Reg-MEDIUM-Coverage SC SCH ×4 (08:25→21:24)
[2017-05-04] MEDS: Potassium & Sodium Phosphate PO SCH ×2 (10:20→17:35)
[2017-05-04] MEDS: Magnesium Oxide 400 mg Tab UD PO SCH ×3 (10:20→17:35)
[2017-05-04] MEDS: POLYETHYLENE GLYCOL 3350 17 GM/Dose PACKET PO SCH (10:37)
[2017-05-04] MEDS: Sodium Chloride 0.9% 1,000 ML IV SCH (12:25)
--- NOTE | 2017-05-04 16:20 | PN ---
DATE: 05/04/2017 LOCATION: The patient in room 365, bed 1. REASON FOR CONSULTATION AND FOLLOWUP: Coronary artery disease, hypertension, abdominal pain, renal failure, stool-guaiac positive. SUBJECTIVE: The patient denies any chest pain, shortness of breath or palpitations. Patient lying flat in bed without any cardiac symptoms. PHYSICAL EXAMINATION: VITAL SIGNS: Blood pressure 156/74, respirations 20, pulse 79, temperature 98.5. HEENT: Head is normocephalic. Eyes: Pupils normal. Conjunctivae slightly pale. NECK: JVP low. Carotid equal. THORAX: AP diameter normal. LUNGS: Clear. CARDIOVASCULAR: S1, S2. ABDOMEN: Soft. No organomegaly. Bowel sounds normal. EXTREMITIES: No clubbing, no cyanosis. LABORATORY DATA: WBC 5.8, hemoglobin 9.1, hematocrit 27.0, platelets 164. Sodium 144, potassium 4.1, BUN 16, creatinine 2.7, random sugar 102, AST and ALT normal, total protein 5.5, albumin is 3.0. DIAGNOSES: Renal failure; anemia; history of coronary artery disease, status post stent insertion in 12/16/2013; abdominal pain; obesity; hyperlipidemia; diabetes; hypertension; stent insertion took place in 12/2013; stress test, 12/11/2006 was normal with an ejection fraction of 55%; echo, 12/09/2016 showed normal chamber sizes, ejection fraction of 65%, right ventricular systolic pressure 19 mmHg; trivial . PLAN: Patient's BUN and creatinine continue to improve. Patient on aspirin 81 mg daily, metoprolol 25 b.i.d., magnesium oxide 400 mg p.o. t.i.d., PhosLo, potassium 1 packet p.o. b.i.d., acarbose 50 mg t.i.d., sodium chloride solution 100 mL an hour. Clinically cardiac status stable. We will continue to follow. Jason Almeida MD
--- NOTE | 2017-05-04 17:21 | PN ---
DATE: SUBJECTIVE: The patient is 66 years old, seen and examined, sitting in chair, seems to be comfortable. No chest pain. No shortness of breath. Eating and tolerating. PHYSICAL EXAMINATION: VITAL SIGNS: He is afebrile, pulse 79, respirations 20, blood pressure 156/74. LUNGS: Bilateral fair airflow. No rhonchi or crackle. HEART: S1 and S2 audible. ABDOMEN: Soft, obese, nontender. No rebound. No guarding. NEUROLOGIC: He is awake, alert, oriented, communicative. EXTREMITIES: Bilateral leg, he has chronic stasis dermatitis with pigmentation. LABORATORY EXAM: WBC is 5.8, hemoglobin 9.1, hematocrit 27, platelet of 164. Chemistry: Sodium 144, potassium 4.1, chloride 111, CO2 of 25, BUN 16, creatinine 2.7, blood sugar of 102. Endoscopy done on 05/02/2017 is unremarkable. ASSESSMENT: 1. Acute renal failure, resolving. 2. Anemia, source unknown. Endoscopy is unremarkable. Gastroenterology's input and appreciated. Plan for colonoscopy once the patient is stable. 3. Hypertension. 4. Chronic stasis dermatitis. 5. Morbid obesity. 6. Resolved hyperkalemia. 7. Coronary artery disease, ,status post angioplasty in the remote past. 8. Iron-deficiency anemia. 9. Cholelithiasis. 10. Constipation. PLAN: We will start the patient on MiraLax. I will continue him on aspirin. His blood sugar is being monitored. We will start him on MiraLax daily. We will follow up with CBC and CMP in a.m. Samantha Booth MD
[2017-05-04] MEDS ORDERED: Sodium Chloride 0.9% 1,000 ML IV SCH (21:41)
--- NOTE | 2017-05-04 23:04 | PN ---
DATE:05/04/2017 SUBJECTIVE: This patient was seen and evaluated earlier today. Patient is comfortable, tolerating the diet. OBJECTIVE: VITAL SIGNS: On examination, temperature 98, blood pressure is 130/60, respirations 20, O2 saturations 100%. HEENT: Atraumatic, anicteric. NECK: Supple. HEART: S1, S2 heard. LUNGS: Bilateral air entry present. ABDOMEN: Soft, no tenderness. EXTREMITIES: No cyanosis, no clubbing. LABORATORY DATA: Hemoglobin 9.1, hematocrit 27, WBC 5.8, platelets 164. BUN 16, creatinine 2.7. IMPRESSION: This 66-year-old patient with acute kidney injury and chronic kidney disease, admitted with epigastric discomfort and anemia. Esophagogastroduodenoscopy did not show any upper gastrointestinal source of blood loss. The likely cause for the anemia is probably multifactorial etiology. Patient was on Plavix until admission. Patient had a history of coronary artery disease, status post percutaneous coronary intervention - planned for. We will consider colonoscopic evaluation. Would recommend follow up of the hemoglobin and hematocrit. Patient is only on aspirin, which can be continued; would schedule for colonoscopy to further evaluate anemia to rule out any gastrointestinal source of blood loss. Also requested for stool for occult blood. Thank you very much for allowing us to participate in the care of the patient. Danie Phipps MD [facility]
[2017-05-05 06:49] LABS: BASO # 0.02 K/mm3 (0.0-2.0); BASO % 0.3 % (0.0-3.0); EOS # 0.4 (0.0-0.7); EOS % 6.3 % (1.5-5.0); GRAN # 5.06 (1.4-6.5); GRAN % 72.6 % (50.0-68.0); HEMOGLOBIN 9.1 g/dL (14.0-18.0); LYMPH # 0.8 (1.2-3.4); LYMPH % 11.2 % (22.0-35.0); MEAN CELL VOLUME 96.8 fl (80.0-105.0); MEAN CORPUSCULAR HEMOGLOBIN 32.7 pg (25.0-35.0); MEAN CORPUSCULAR HGB CONC 33.8 g/dl (31.0-37.0); MONO # 0.7 (0.1-0.6); MONO % 9.6 % (1.0-6.0); RBC 2.78 10^6/uL (3.5-6.1); RED CELL DISTRIBUTION WIDTH 15.2 % (11.5-14.5)
[2017-05-05 07:23] LABS: ALB/GLOB RATIO 1.2 (1.1-1.8); CALCIUM 8.7 mg/dL (8.4-10.5)
[2017-05-05] MEDS: Insulin Reg-MEDIUM-Coverage SC SCH ×2 (08:12→12:00)
[2017-05-05] MEDS ORDERED: Influenza Vaccine 60 mcg/0.5 mL SYR (4YR UP) IM ONE (09:03)
[2017-05-05] MEDS ORDERED: Pneumococcal 23-Valent Vaccine IM ONE (09:04)
[2017-05-05 09:13] VITALS: BP 158/70; PULSE 72; TEMP 98.6; O2SAT 97
[2017-05-05] MEDS: Magnesium Oxide 400 mg Tab UD PO SCH (09:25)
[2017-05-05] MEDS: POLYETHYLENE GLYCOL 3350 17 GM/Dose PACKET PO SCH (09:28)
[2017-05-05] MEDS: Potassium & Sodium Phosphate PO SCH (12:00)
--- NOTE | 2017-05-05 15:25 | PN ---
DATE: 05/05/2017 LOCATION: Room 365, bed 1. REASON FOR CONSULTATION: Followup coronary artery disease, hypertension, abdominal pain, renal failure, stool-guaiac positive. SUBJECTIVE: Patient lying flat in bed without any chest pain, shortness of breath, or palpitation. Patient denies any nausea, vomiting or diarrhea. PHYSICAL EXAMINATION: VITAL SIGNS: Blood pressure 158/70, respirations 20, pulse 72, temperature 98.6. HEENT: Head is normocephalic. Eyes: Pupils normal. Conjunctivae slightly pale. NECK: JVP low. Carotid equal. THORAX: AP diameter normal. LUNGS: Clear. CARDIOVASCULAR: S1, S2. Soft systolic murmur. No rub. ABDOMEN: Protuberant. No organomegaly. EXTREMITIES: No clubbing, no cyanosis. LABORATORY DATA: WBC 7.0, hemoglobin 9.1,hematocrit 26.9, platelets 161. Sodium 145, potassium 4.1, BUN 13, creatinine 2.2. On admission, patient with BUN of 42 and creatinine 7.8 that shows significant improvement. Calcium 8.7, random glucose 89. AST and ALT normal, total protein 5.5, albumin is 3.0. PLAN: Patient's BUN and creatinine shows significant improvement. Patient is on aspirin 81 mg daily, metoprolol 25 b.i.d., acarbose 50 mg t.i.d. We will continue present therapy. Clinically, cardiac status is stable. We will follow. Jason Almeida MD
--- NOTE | 2017-05-06 05:52 | DS ---
HOSPITAL COURSE: This is a 66-year-old male who has come into the hospital because of acute kidney injury. The patient's creatinine was significantly elevated. He also was having GI bleed with low hemoglobin. He required 2 units of transfusion during his hospital stay. The patient's hemoglobin has stabilized. There was no active bleeding on the endoscopy that was done. The patient was taking aspirin, NSAIDs as an outpatient as well as being on Plavix. The patient's acute kidney injury was also most likely secondary to NSAID abuse. The patient's creatinine has improved. He will most likely need a colonoscopy and this is going to be done as an outpatient. Patient has no complaints of any headache or dizziness. No nausea. No vomiting. PHYSICAL EXAMINATION: VITAL SIGNS: Temperature is 98, pulse of 87, blood pressure 130/60. GENERAL: The patient is lying in bed, flat, comfortable. HEENT: No oral lesion. Anicteric sclerae. Moist mucosa. NECK: No JVD, adenopathy, or thyromegaly. CARDIOVASCULAR: S1 and S2, regular. No murmurs, rubs, or gallops. LUNGS: Clear to auscultation bilaterally. No wheeze, rales, or rhonchi. ABDOMEN: Bowel sounds are positive, soft, nontender and nondistended. EXTREMITIES: No cyanosis, clubbing or edema. LABORATORY DATA: Hemoglobin is 9.1. ASSESSMENT: 1. Acute kidney injury. 2. Acute anemia secondary to blood loss secondary to gastrointestinal bleed of unknown etiology. 3. Hyperkalemia, improved. 4. Coronary artery disease with stent. 5. Diabetes type 2. 6. Obesity with a body mass index of 39. 7. Hypertension. 8. Cholelithiasis. PLAN: The patient is currently comfortable. He is going to be discharged home today. He is advised not to take Plavix anymore. The patient's creatinine has improved significantly, the creatinine at this point is 2.2, that is an improvement from 7.8, this should continue to improve. The patient was given phosphorus replacement and magnesium replacement. The patient is on renal diet. He is going to continue with MiraLax for constipation. He is going to be discharged home. CONDITION: Stable. ACTIVITIES: Increase as tolerated. FOLLOWUP: 1. Follow up with Dr. Welch in 1 to 2 weeks. He was advised to follow up with GI for colonoscopy. 2. He was advised to discontinue his Plavix. Asif Welch MD
== END 2017-05-05 13:19 | disposition home or self-care (01) | DRG 683 ==
LOC: ED 19:14 → ERH 22:57 → 3RNO 05-01 00:39
PROVIDERS: ADMIT Internal Medicine Nephrology; ATTEND Internal Medicine Nephrology
PROC: 0DJ08ZZ Inspection of Upper Intestinal Tract, Via Natural or Artificial Opening Endoscopic (ICD-10-PCS; principal; 2017-05-02 12:30)
PROC: 30233N1 Transfusion of Nonautologous Red Blood Cells into Peripheral Vein, Percutaneous Approach (ICD-10-PCS; 2017-05-03)
PROC: 3E0234Z Introduction of Serum, Toxoid and Vaccine into Muscle, Percutaneous Approach (ICD-10-PCS; 2017-05-05)
DX: N17.9 Acute kidney failure, unspecified (principal); K92.2 Gastrointestinal hemorrhage, unspecified; D62 Acute posthemorrhagic anemia; E11.622 Type 2 diabetes mellitus with other skin ulcer; L97.819 Non-pressure chronic ulcer of other part of right lower leg with unspecified severity; C92.11 Chronic myeloid leukemia, BCR/ABL-positive, in remission; K56.7 Ileus, unspecified; E87.5 Hyperkalemia; T39.395A Adverse effect of other nonsteroidal anti-inflammatory drugs [NSAID], initial encounter; K29.50 Unspecified chronic gastritis without bleeding; E86.0 Dehydration; I12.9 Hypertensive chronic kidney disease with stage 1 through stage 4 chronic kidney disease, or unspecified chronic kidney disease; N18.9 Chronic kidney disease, unspecified; E11.22 Type 2 diabetes mellitus with diabetic chronic kidney disease; E11.51 Type 2 diabetes mellitus with diabetic peripheral angiopathy without gangrene; D63.1 Anemia in chronic kidney disease; I25.10 Atherosclerotic heart disease of native coronary artery without angina pectoris; E66.01 Morbid (severe) obesity due to excess calories; K80.20 Calculus of gallbladder without cholecystitis without obstruction; K21.9 Gastro-esophageal reflux disease without esophagitis; I87.2 Venous insufficiency (chronic) (peripheral); E78.5 Hyperlipidemia, unspecified; Z87.891 Personal history of nicotine dependence; Z79.84 Long term (current) use of oral hypoglycemic drugs; Z95.5 Presence of coronary angioplasty implant and graft; Z68.39 Body mass index [BMI] 39.0-39.9, adult; Z79.82 Long term (current) use of aspirin; Z23 Encounter for immunization; Z79.02 Long term (current) use of antithrombotics/antiplatelets

== ENCOUNTER 2017-08-09 17:25 | Emergency (ER) | payer MEDICARE, OTHER ==
[2017-08-09 17:38] VITALS: BMI 32.2
[2017-08-09 17:42] VITALS: RESP 18
[2017-08-09] MEDS ORDERED: Sodium Chloride 0.9% 1,000 ML IV STA (18:08)
--- NOTE | 2017-08-09 18:08 | ED PDOC ---
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 Patient stated symptoms resembles from last ED admission x 3 months ago. Patient noted occasional cough. Patient denies CP, palpitation, weakness , paresthesias, fever, dizziness or abnormal gait. (Faiza Mary) Past Medical History - Provider Review Nursing Documentation Reviewed: Yes - Infectious Disease Hx of Infectious Diseases: None - Tetanus Immunization Tetanus Immunization: Unknown - Cardiac Hx Cardiac Disorders: Yes Hx Hypertension: Yes - Pulmonary Hx Respiratory Disorders: Yes Hx Pneumonia: Yes (1995) Other/Comment: smoker / Lobectomy - Neurological Hx Neurological Disorder: No - HEENT Hx HEENT Disorder: No - Renal Hx Renal Disorder: No - Endocrine/Metabolic Hx Diabetes Mellitus Type 2: Yes - Hematological/Oncological Hx Anemia: Yes Hx Blood Transfusions: Yes - Integumentary Hx Dermatological Disorder: Yes Other/Comment: edema both legs - Musculoskeletal/Rheumatological Hx Falls: Yes - Gastrointestinal Hx Gastrointestinal Disorders: No - Genitourinary/Gynecological Hx Genitourinary Disorders: No - Psychiatric Hx Psychophysiologic Disorder: No Hx Depression: No Hx Substance Use: No - Past Surgical History Past Surgical History: No Previous - Surgical History Hx Cardiac Catheterization: Yes Hx Coronary Stent: Yes (x1) Other/Comment: LOWER LEFT LOBECTOMY - Anesthesia Hx Anesthesia Reactions: No Hx Malignant Hyperthermia: No - Suicidal Assessment Feels Threatened In Home Enviroment: No <Faiza Mary - Last Filed: 08/09/17 20:57> Family/Social History - Physician Review Nursing Documentation Reviewed: Yes Family/Social History: Other (noncontributory) Smoking Status: Former Smoker Hx Alcohol Use: Yes (socially) Hx Substance Use: No Hx Substance Use Treatment: No <Faiza Mary - Last Filed: 08/09/17 20:57> Allergies/Home Meds <Faiza Mary - Last Filed: 08/09/17 20:57> <Ed Jeronimo - Last Filed: 08/09/17 22:50> Allergies/Adverse Reactions: Allergies No Known Allergies Allergy (Verified 04/30/17 19:31) Home Medications: Home Meds Medication Instructions Recorded Confirmed Metformin HCl 1,000 mg PO BID 03/15/12 08/09/17 Rosuvastatin Calcium [Crestor] 10 mg PO HS 12/02/13 08/09/17 Furosemide [Lasix] 20 mg PO DAILY 07/14/15 08/09/17 Potassium Chloride [Klor-Con 10 meq PO DAILY 03/05/16 08/09/17 Sprinkle] Imatinib Mesylate 400 mg PO DAILY 03/20/16 08/09/17 Famotidine [Pepcid] 1 tab PO BID 04/17/17 08/09/17 Aspirin [Ecotrin] 81 mg PO DAILY 08/09/17 08/09/17 Review of Systems - Review of Systems Constitutional: Normal. absent: Fatigue, Weight Change, Fevers Eyes: Normal ENT: Normal Respiratory: Cough. absent: SOB, Sputum, Wheezing Cardiovascular: Normal. absent: Chest Pain, Palpitations Gastrointestinal: Abdominal Pain, Nausea, Vomiting, Other (No rectal bleeding). absent: Constipation, Diarrhea, Hematochezia, Hematemesis Genitourinary Male: Normal. absent: Dysuria, Frequency, Hematuria Musculoskeletal: Normal Skin: Normal Neurological: Normal Endocrine: Normal Hemo/Lymphatic: Normal Psychiatric: Normal <Faiza Mary P - Last Filed: 08/09/17 20:57> Physical Exam Temperature: Afebrile Blood Pressure: Normal Pulse: Regular Respiratory Rate: Normal Appearance: Positive for: Well-Appearing, Non-Toxic, Comfortable Pain Distress: None Mental Status: Positive for: Alert and Oriented X 3 - Systems Exam Head: Present: Atraumatic, Normocephalic Pupils: Present: PERRL Extroacular Muscles: Present: EOMI Conjunctiva: Present: Normal Mouth: Present: Moist Mucous Membranes Neck: Present: Normal Range of Motion Respiratory/Chest: Present: Clear to Auscultation, Good Air Exchange. No: Respiratory Distress, Accessory Muscle Use Cardiovascular: Present: Regular Rate and Rhythm, Normal S1, S2. No: Murmurs Abdomen: Present: Tenderness (Mild generalized tenderness). No: Distention, Peritoneal Signs, Rebound, Guarding, McBurney's Point Tender, Rovsing's Sign Present, Hernias Back: Present: Normal Inspection. No: CVA Tenderness Upper Extremity: Present: Normal Inspection, Normal ROM. No: Cyanosis, Edema Lower Extremity: Present: Normal Inspection, Normal ROM. No: Edema Neurological: Present: GCS=15, CN II-XII Intact, Speech Normal, Motor Func Grossly Intact, Normal Sensory Function, Normal Cerebellar Funct, Gait Normal, Memory Normal Skin: Present: Warm, Dry, Normal Color. No: Rashes Psychiatric: Present: Alert, Oriented x 3, Normal Insight, Normal Concentration <Faiza Mary P - Last Filed: 08/09/17 20:57> Vital Signs Temp Pulse Resp BP Pulse Ox 08/09/17 17:26 98.7 F 98 H 18 125/78 96 Medical Decision Making - EKG Interpretation Interpreted by ED Physician: Yes (NSR @ [address] changes) Type: 12 lead EKG Comparison: Similar to previous EKG <Faiza Mary - Last Filed: 08/09/17 20:57> <Ed Jeronimo - Last Filed: 08/09/17 22:50> ED Course and Treatment: 08/09/17 19:37 Patient stated he feels something stuck in his throat, possible upper esophagus. CT of Chest was ordered. 08/09/17 20:57 Patient signed out to Dr. Jeronimo at this time. Pending CT Chest and Abdomen/ Pelvis result. Patient stated he is feeling well. I recommended Carafate 1 gr at bedtime, and to f/u PMD, and GI doctor in 2-3 days. (Faiza Mary P) 08/09/17 22:47 On re-evaluation, patient feels better and is in no acute distress. I have discussed the results and plan with the patient, who expresses understanding. Patient in agreement with plan to be discharged home. Patient is stable for discharge and prescribed Protonix and Carafate. Patient was instructed to follow up with physician or return if symptoms worsen or new concerning symptoms arise. (Ed Jeronimo) - Lab Interpretations Lab Results: 08/09/17 06:30 08/09/17 06:30 Lab Results 08/09/17 06:30: Sodium 146, Potassium 5.1 H, Chloride 105, Carbon Dioxide 28, Anion Gap 18, BUN 15, Creatinine 2.5 H, Est GFR ( Amer) 32, Est GFR (Non- Af Amer) 26, Random Glucose 90, Calcium 9.8, Magnesium 1.6 L, Total Bilirubin 0.8, AST 21, ALT 19, Alkaline Phosphatase 71, Lactate Dehydrogenase 622, Total Creatine Kinase 70, Troponin I < 0.01 D, NT-Pro-B Natriuret Pep 138, Total Protein 7.5, Albumin 4.4, Globulin 3.1, Albumin/Globulin Ratio 1.4, Lipase 52 08/09/17 06:30: PT 11.1, INR 0.97, APTT 21.6 L 08/09/17 06:30: WBC 6.5, RBC 3.33 L, Hgb 10.4 L, Hct 30.1 L, MCV 90.4 D, MCH 31.2, MCHC 34.6, RDW 14.0, Plt Count 219, MPV 10.5, Gran % 73.5 H, Lymph % (Auto ) 14.0 L, [place] % (Auto) 7.6 H, Eos % (Auto) 4.3, Baso % (Auto) 0.6, Gran # 4.76 , Lymph # (Auto) 0.9 L, [place] # (Auto) 0.5, Eos # (Auto) 0.3, Baso # (Auto) 0.04 - RAD Interpretation Radiology Orders: 08/09/17 18:11 CHEST PORTABLE [RAD] Stat 08/09/17 19:25 CHEST,ABDOMEN, PELVIS W/O CONT [CT] Stat - Medication Orders Current Medication Orders: Discontinued Medications Famotidine (Pepcid) 20 mg IVP STAT STA Stop: 08/09/17 18:09 Last Admin: 08/09/17 18:17 Dose: 20 mg IVP Administration Document 08/09/17 18:17 EWO (Rec: 08/09/17 18:17 EW [id number]) Charges for Administration # of IVP Administrations 1 Sodium Chloride (Sodium Chloride 0.9%) 1,000 mls @ 1,000 mls/hr IV .Q1H STA Stop: 08/09/17 19:07 Last Admin: 08/09/17 18:17 Dose: 1,000 mls/hr eMAR Start Stop Document 08/09/17 18:17 EWO (Rec: 08/09/17 18:17 EWO [id number]) Intravenous Solution Start Date 08/09/17 Start Time 18:17 End Date 08/09/17 End time 19:17 Total Infusion Time 60 Ondansetron HCl (Zofran Inj) 4 mg IVP STAT STA Stop: 08/09/17 18:09 Last Admin: 08/09/17 18:16 Dose: 4 mg IVP Administration Document 08/09/17 18:16 EWO (Rec: 08/09/17 18:17 EWO [id number]) Charges for Administration # of IVP Administrations 1 Sodium Polystyrene Sulfonate (Kayexalate Susp) 15 gm PO STAT STA Stop: 08/09/17 19:29 Last Admin: 08/09/17 20:04 Dose: 15 gm Disposition/Present on Arrival - Present on Arrival Any Indicators Present on Arrival: No History of DVT/PE: No History of Uncontrolled Diabetes: No Urinary Catheter: No History of Decub. Ulcer: No History Surgical Site Infection Following: None - Disposition Have Diagnosis and Disposition been Completed?: Yes <Faiza Mary - Last Filed: 08/09/17 20:57> - Disposition Disposition Time: 22:36 Patient Plan: Discharge <Ed Jeronimo - Last Filed: 08/09/17 22:50> - Disposition Diagnosis: Abdominal pain, Cholelithiasis Disposition: HOME/ ROUTINE Patient Problems: Current Active Problems Problem Status Onset Cholelithiasis Acute Abdominal pain Acute Condition: GOOD Discharge Instructions (ExitCare): Acute Abdomen (Belly Pain), Adult (DC), Gallstones (DC) Additional Instructions: Mr Handy - Your CT scans were essentially normal. Return to us if any problems. Follow up with your reguilar doctors on Friday. Start the protonix and the carafate tomorrow. Marko- Dr. Ed Jeronimo Prescriptions: Pantoprazole Sodium [Protonix] 40 mg PO BID #60 ect Sucralfate [Carafate] 1 gm PO HS #30 tab Referrals: Asif Welch MD [Primary Care Provider] - Follow up with primary Forms: [employer] ([place])
[2017-08-09 18:44] LABS: BASO # 0.04 K/mm3 (0.0-2.0); BASO % 0.6 % (0.0-3.0); EOS # 0.3 (0.0-0.7); EOS % 4.3 % (1.5-5.0); GRAN # 4.76 (1.4-6.5); GRAN % 73.5 % (50.0-68.0); HEMOGLOBIN 10.4 g/dL (14.0-18.0); LYMPH # 0.9 (1.2-3.4); MEAN CELL VOLUME 90.4 fl (80.0-105.0); MEAN CORPUSCULAR HEMOGLOBIN 31.2 pg (25.0-35.0); MEAN CORPUSCULAR HGB CONC 34.6 g/dl (31.0-37.0); MEAN PLATELET VOLUME 10.5 fl (7.0-11.0); MONO # 0.5 (0.1-0.6); MONO % 7.6 % (1.0-6.0); RBC 3.33 10^6/uL (3.5-6.1); WHITE BLOOD COUNT 6.5 10^3/ul (4.5-11.0)
[2017-08-09 18:54] LABS: INR 0.97 (0.93-1.08); PARTIAL THROMBOPLASTIN TIME 21.6 Seconds (25.1-36.5); PROTHROMBIN TIME 11.1 SECONDS (9.4-12.5)
[2017-08-09 18:56] LABS: ALB/GLOB RATIO 1.4 (1.1-1.8); ALBUMIN 4.4 g/dL (3.0-4.8); CALCIUM 9.8 mg/dL (8.4-10.5); GFR AFRICAN-AMERICAN 32; GFR NON-AFRICAN AMERICAN 26; LIPASE 52 U/L (23-300)
[2017-08-09 19:07] LABS: B-TYPE NATRIURETIC PEPTIDE 138 pg/mL (0-450); TROPONIN I < 0.01 ng/mL
[2017-08-09 19:16] LABS: ALT/SGPT 19 U/L (7-56); AST/SGOT 21 U/L (17-59); BLOOD UREA NITROGEN 15 mg/dL (7-21)
[2017-08-09] MEDS ORDERED: Sod Polystyrene Sulf 15 gm/60 ml Susp PO STA (19:28)
--- NOTE | 2017-08-09 22:15 | CT ---
EXAM: CT Chest Without Intravenous Contrast CLINICAL HISTORY: 66 years old, male; Signs and symptoms; Other: Abd pain; Other: Dysphagia; Prior surgery; Surgery type: Left lobectomy; Additional info: Dysphagia / abdominal pain TECHNIQUE: Axial computed tomography images of the chest without intravenous contrast. All CT scans at this facility use one or more dose reduction techniques, viz.: automated exposure control; ma/kV adjustment per patient size (including targeted exams where dose is matched to indication; i.e. head); or iterative reconstruction technique. Coronal and sagittal reformatted images were created and reviewed. COMPARISON: Prior images are not available for review. FINDINGS: Lungs and pleural spaces: Trachea and main bronchi are patent. Right upper lobe bronchus, bronchus intermedius, middle and lower lobe bronchi are present. Left upper and lower lobe bronchi are present. There is no pneumothorax. There is atelectasis and scarring at the left. There is elevation of the left diaphragm. There is pleural thickening at the left base. Right lung is clear. There is no focal consolidation on the left. There are no effusions. Heart and vasculature: Heart size is normal. There is trace fluid in pericardial recesses.There are coronary artery calcifications.Aorta and main pulmonary artery are normal in caliber. There are vascular calcifications Mediastinum: There are no pathologically enlarged mediastinal nodes.Octavia are not optimally evaluated without contrast material. The esophagus is unremarkable. Thyroid: The thyroid is heterogeneous. Bones/joints: There degenerative changes in the bony structures. There are post traumatic versus postoperative changes in left ribs. There are old healed right rib fractures. Soft tissues: There is gynecomastia. Upper abdomen: Report to following report for abdominal findings IMPRESSION: Postsurgical changes at the left base with atelectasis/scarring and volume loss; no focal pneumonia; old healed rib fractures bilaterally Additional nonemergent findings as described above. EXAM: CT Abdomen and Pelvis Without Intravenous Contrast EXAM DATE/TIME: 08/09/2017 7:25 PM CLINICAL HISTORY: 66 years old, male; Signs and symptoms; Other: Abd pain; Other: Dysphagia; Prior surgery; Surgery type: Left lobectomy; Additional info: Dysphagia / abdominal pain TECHNIQUE: Axial computed tomography images of the abdomen and pelvis without intravenous contrast. All CT scans at this facility use one or more dose reduction techniques, viz.: automated exposure control; ma/kV adjustment per patient size (including targeted exams where dose is matched to indication; i.e. head); or iterative reconstruction technique. Coronal and sagittal reformatted images were created and reviewed. COMPARISON: CT - ABD PELVIS W/O PO OR IV CONT 2017-04-30 21:12 FINDINGS: Lung bases: Refer to prior report for chest findings ABDOMEN: Liver: unremarkable Gallbladder and bile ducts: Gallbladder is partially distended. There is small calcified stones.Common duct is unremarkable. Pancreas: Pancreas is mildly atrophic. Spleen: unremarkable Adrenals: unremarkable Kidneys and ureters: unremarkable Stomach and bowel: Stomach is partially distended with contrast and fluid. Rotation is normal. Small bowel is mildly dilated with scattered air-fluid levels. There is fluid and air throughout the small bowel. There is mild jejunal wall and fold thickening. Ileocecal region is unremarkable. Appendix and terminal ileum are unremarkable. Colon is incompletely distended which limits evaluation. PELVIS: Appendix: See stomach and bowel Bladder: There is mild bladder wall thickening. There is a small bladder diverticulum. Reproductive: Prostate is mildly enlarged. Seminal vesicles are prominent. ABDOMEN and PELVIS: Intraperitoneal space: There is no free air or free fluid. Bones/joints: There are degenerative changes in the osseus structures. Soft tissues: unremarkable Vasculature: There are vascular calcifications. Lymph nodes: There is no pathologic adenopathy. IMPRESSION: Gallstones, no ductal dilatation; enteritis with mild ileus, no obstruction Additional nonemergent findings as described above.
[2017-08-10 02:45] VITALS: BP 158/92; PULSE 88; TEMP 98.6; O2SAT 100
--- NOTE | 2017-08-10 09:31 | RAD ---
HISTORY: cough, epigastric pain COMPARISON: Comparison chest 2017. Comparison also made with concurrent CT scan of the chest abdomen and pelvis. FINDINGS: LUNGS: Chronic minimal chronic linear atelectasis -scarring left posterior sulcus with localized elevation anterior aspect left hemidiaphragm unchanged from prior chest radiograph. Note these changes are seen to much better advantage on concurrent CT scan of chest. PLEURA: No significant pleural effusion identified, no pneumothorax apparent. CARDIOVASCULAR: Normal. OSSEOUS STRUCTURES: Old healed fracture deformity right posterior 6 rib VISUALIZED UPPER ABDOMEN: Normal. OTHER FINDINGS: None. IMPRESSION: Chronic minimal chronic linear atelectasis -scarring left posterior sulcus with localized elevation anterior aspect left hemidiaphragm unchanged from prior chest radiograph. Note these changes are seen to much better advantage on concurrent CT scan of chest. Old healed fracture deformity right posterior 6 rib.
--- NOTE | 2017-08-11 08:14 | CARD ---
APPROVED REPORT EKG Measurement Heart [id number] <Conclusion> Normal sinus rhythm Normal ECG
== END 2017-08-09 22:50 | disposition home or self-care (01) ==
LOC: ED 17:25
DX: K80.20 Calculus of gallbladder without cholecystitis without obstruction (principal); R10.84 Generalized abdominal pain; I10 Essential (primary) hypertension; E78.5 Hyperlipidemia, unspecified; E11.9 Type 2 diabetes mellitus without complications; Z87.891 Personal history of nicotine dependence
CPT/HCPCS: 71045; 71250; 74176; 80053; 82550; 83615; 83690; 83735; 83880; 84484; 85025; 85610; 85730; 93005; 96361; 96374; 96375; 99284; J2405; J7040

== ENCOUNTER 2017-08-14 22:00 | Emergency (ER) | payer MEDICARE ==
[2017-08-14 22:47] VITALS: BMI 32.1
--- NOTE | 2017-08-14 22:48 | ED PDOC ---
Arrival/HPI <Claritza Alvarez - Last Filed: 08/14/17 22:39> - General Historian: Patient - History of Present Illness Time/Duration: 1 week Symptom Course: Intermittent Activities at Onset: Light Context: Home <Ed Jeronimo - Last Filed: 08/15/17 01:42> - General Chief Complaint: Abdominal Pain Time Seen by Provider: 08/14/17 22:04 - History of Present Illness Narrative History of Present Illness (Text): 08/14/17 22:39 Patient is a 66 year old male with a past medical history of diabetes, hypertension, hyperlipidemia, CML, and anemia who presents to the Emergency department for nagging, intermittent abdominal pain that radiates to his upper back for 1 week duration. Patient was here a few days ago to be evaluated and at that time he had a CT scan. He was told he had gallstones and advised to eat less fatty foods to avoid attacks. Patient says he has had persistent decreased appetite, nausea, vomiting, and epigastric/RUQ pain since that time that continues to wake him up at night. Patient also admits to diarrhea and dark, smelly urine. Denies fever, chills, chest pain, shortness of breath, constipation. (Claritza Alvarez) Past Medical History - Infectious Disease Hx of Infectious Diseases: None - Tetanus Immunization Tetanus Immunization: Unknown - Cardiac Hx Cardiac Disorders: Yes Hx Hypertension: Yes - Pulmonary Hx Respiratory Disorders: Yes Hx Pneumonia: Yes (1995) Other/Comment: smoker / Lobectomy - Neurological Hx Neurological Disorder: No - HEENT Hx HEENT Disorder: No - Renal Hx Renal Disorder: No - Endocrine/Metabolic Hx Diabetes Mellitus Type 2: Yes - Hematological/Oncological Hx Anemia: Yes Hx Blood Transfusions: Yes - Integumentary Hx Dermatological Disorder: Yes Other/Comment: edema both legs - Musculoskeletal/Rheumatological Hx Falls: Yes - Gastrointestinal Hx Gastrointestinal Disorders: No - Genitourinary/Gynecological Hx Genitourinary Disorders: No - Psychiatric Hx Psychophysiologic Disorder: No Hx Depression: No Hx Substance Use: No - Past Surgical History Past Surgical History: No Previous - Surgical History Hx Cardiac Catheterization: Yes Hx Coronary Stent: Yes (x1) Other/Comment: LOWER LEFT LOBECTOMY - Anesthesia Hx Anesthesia Reactions: No Hx Malignant Hyperthermia: No - Suicidal Assessment Feels Threatened In Home Enviroment: No <Claritza Alvarez - Last Filed: 08/14/17 22:39> - Provider Review Nursing Documentation Reviewed: Yes <PhaniEd - Last Filed: 08/15/17 01:42> Family/Social History Family/Social History: Neoplasm/Cancer (mother) Smoking Status: Former Smoker Hx Alcohol Use: Yes (socially) Hx Substance Use: No Hx Substance Use Treatment: No <AntonioClaritza - Last Filed: 08/14/17 22:39> - Physician Review Nursing Documentation Reviewed: Yes <PhaniEd - Last Filed: 08/15/17 01:42> Allergies/Home Meds <AntonioClaritza - Last Filed: 08/14/17 22:39> <PhaniEd - Last Filed: 08/15/17 01:42> Allergies/Adverse Reactions: Allergies No Known Allergies Allergy (Verified 08/14/17 22:27) Home Medications: Home Meds Medication Instructions Recorded Confirmed Metformin HCl 1,000 mg PO BID 03/15/12 08/14/17 Rosuvastatin Calcium [Crestor] 10 mg PO HS 12/02/13 08/14/17 Furosemide [Lasix] 20 mg PO DAILY 07/14/15 08/14/17 Potassium Chloride [Klor-Con 10 meq PO DAILY 03/05/16 08/14/17 Sprinkle] Imatinib Mesylate 400 mg PO DAILY 03/20/16 08/14/17 Famotidine [Pepcid] 1 tab PO BID 04/17/17 08/14/17 Aspirin [Ecotrin] 81 mg PO DAILY 08/09/17 08/14/17 Review of Systems - Physician Review All systems were reviewed & negative as marked: Yes - Review of Systems Constitutional: Normal. absent: Fatigue, Fevers, Night Sweats Eyes: Normal. absent: Vision Changes ENT: Normal. absent: Hearing Changes Respiratory: Normal. absent: SOB, Cough, Wheezing Cardiovascular: Normal. absent: Chest Pain, Palpitations, Edema Gastrointestinal: Abdominal Pain, Diarrhea, Nausea, Vomiting, Appetite Changes. absent: Constipation, Hematochezia, Hematemesis Genitourinary Male: Other (urine dark and malodorous). absent: Dysuria, Frequency, Hematuria Musculoskeletal: Back Pain Skin: Normal. absent: Rash Neurological: Normal. absent: Headache, Dizziness <AntonioClaritza - Last Filed: 08/14/17 22:39> Physical Exam Appearance: Positive for: Other (Bed Bugs crawling on him) - Systems Exam Head: Present: Atraumatic, Normocephalic Pupils: Present: PERRL Extroacular Muscles: Present: EOMI Conjunctiva: Present: Normal Mouth: Present: Moist Mucous Membranes Neck: Present: Normal Range of Motion Respiratory/Chest: Present: Clear to Auscultation, Good Air Exchange. No: Respiratory Distress, Accessory Muscle Use Cardiovascular: Present: Regular Rate and Rhythm, Normal S1, S2. No: Murmurs Abdomen: Present: Tenderness (epigastric and RUQ), Normal Bowel Sounds, Guarding (voluntary). No: Distention, Peritoneal Signs, McBurney's Point Tender , Hernias, Mass/Organomegaly Upper Extremity: Present: Normal Inspection. No: Cyanosis, Edema Lower Extremity: Present: Normal Inspection. No: Edema Neurological: Present: GCS=15, Speech Normal Skin: Present: Warm, Dry, Normal Color. No: Rashes Psychiatric: Present: Alert, Oriented x 3, Normal Insight, Normal Concentration <Claritza Alvarez - Last Filed: 08/14/17 22:39> Vital Signs Reviewed: Yes Temperature: Afebrile Blood Pressure: Normal Pulse: Regular Respiratory Rate: Normal Appearance: Positive for: Comfortable Pain Distress: None Mental Status: Positive for: Alert and Oriented X 3 <Ed Jeronimo - Last Filed: 08/15/17 01:42> Vital Signs Temp Pulse Resp BP Pulse Ox 08/14/17 23:42 98.8 F 85 18 146/67 98 08/14/17 23:22 98.8 F Medical Decision Making <Claritza Alvarez - Last Filed: 08/14/17 22:39> - Lab Interpretations I have reviewed the lab results: Yes <Ed Jeronimo - Last Filed: 08/15/17 01:42> ED Course and Treatment: 08/14/17 22:55 Plan: - CBC, CMP, Mag - Abdominal US - Urinalysis - General surgery consulted and spoke with resident - Reassess and disposition Discussed with Dr. Jeronimo 08/14/17 22:56 Note that patient had beg bugs crawling on him which he says he got from staying with a friend (Claritza Alvarez) Patient Seen With Resident: In agreement with resident note which contains more details about the patient. Patient was seen and evaluated with resident. Came up with plan and treatment together. 66 year old male presents complaining of intermittent abdominal pain that radiates to his upper back for the past week. Plan: -- Labs -- General Surgery Consult -- Urinalysis -- Abdomen Complete US EXAM:US Abdomen Complete Dictated and Authenticated by: Norah Ni MD 08/15/2017 12:10 AM IMPRESSION: Gallbladder stones and sludge. 08/15/17 01:39 Surgery Resident does not feel that this problem is surgical at the present time and has nothing to add. (Ed Jeronimo) - Lab Interpretations Lab Results: 08/14/17 23:37 08/14/17 23:37 Lab Results 08/14/17 23:37: Sodium 145, Potassium 4.6, Chloride 102, Carbon Dioxide 23, Anion Gap 25 H, BUN 20, Creatinine 3.1 H, Est GFR ( Amer) 25, Est GFR ( Non-Af Amer) 20, Random Glucose 65 L, Calcium 9.5, Magnesium 1.3 L, Total Bilirubin 0.6, AST 21, ALT 14, Alkaline Phosphatase 83, Total Protein 7.4, Albumin 4.3, Globulin 3.1, Albumin/Globulin Ratio 1.4 08/14/17 23:37: WBC 8.3 D, RBC 3.39 L, Hgb 10.6 L, Hct 30.8 L, MCV 90.9, MCH 31.3, MCHC 34.4, RDW 14.0, Plt Count 190, MPV 9.9, Gran % 80.1 H, Lymph % (Auto ) 9.4 L, [place] % (Auto) 7.6 H, Eos % (Auto) 2.4, Baso % (Auto) 0.5, Gran # 6.69 H , Lymph # (Auto) 0.8 L, [place] # (Auto) 0.6, Eos # (Auto) 0.2, Baso # (Auto) 0.04 - RAD Interpretation Radiology Orders: 08/14/17 22:35 ABDOMEN COMPLETE [US] Stat <Claritza Alvarez - Last Filed: 08/14/17 22:39> - Scribe Statement The provider has reviewed the documentation as recorded by the Scribe <Ed Jeronimo - Last Filed: 08/15/17 01:42> - Scribe Statement Vish Prieto Provider Scribe Attestation: All medical record entries made by the Scribe were at my direction and personally dictated by me. I have reviewed the chart and agree that the record accurately reflects my personal performance of the history, physical exam, medical decision making, and the department course for this patient. I have also personally directed, reviewed, and agree with the discharge instructions and disposition. (Ed Jeronimo) Disposition/Present on Arrival - Present on Arrival Any Indicators Present on Arrival: No History of DVT/PE: No History of Uncontrolled Diabetes: No Urinary Catheter: No History Surgical Site Infection Following: None <Claritza Alvarez - Last Filed: 08/14/17 22:39> - Disposition Have Diagnosis and Disposition been Completed?: Yes Disposition Time: 01:41 Patient Plan: Discharge <Ed Jeronimo - Last Filed: 08/15/17 01:42> - Disposition Diagnosis: Nausea & vomiting, Biliary colic Disposition: HOME/ ROUTINE Condition: GOOD Discharge Instructions (ExitCare): Nausea and Vomiting, Adult (DC) Additional Instructions: Emeka - Please use the zofran to control the nausea/vomitting. Follow up with your regular doctor later this morning about a referral to gastroenterology. Return to us if worse or new symptoms occur. Best- Dr. Ed Jeronimo Referrals: Cervilenzmat Jones Reselina, [Primary Care Provider] - Follow up with primary Forms: [employer] ([place])
[2017-08-14 23:56] LABS: BASO # 0.04 K/mm3 (0.0-2.0); BASO % 0.5 % (0.0-3.0); EOS # 0.2 (0.0-0.7); EOS % 2.4 % (1.5-5.0); GRAN # 6.69 (1.4-6.5); GRAN % 80.1 % (50.0-68.0); HEMOGLOBIN 10.6 g/dL (14.0-18.0); LYMPH # 0.8 (1.2-3.4); LYMPH % 9.4 % (22.0-35.0); MEAN CELL VOLUME 90.9 fl (80.0-105.0); MEAN CORPUSCULAR HEMOGLOBIN 31.3 pg (25.0-35.0); MEAN CORPUSCULAR HGB CONC 34.4 g/dl (31.0-37.0); MEAN PLATELET VOLUME 9.9 fl (7.0-11.0); MONO # 0.6 (0.1-0.6); MONO % 7.6 % (1.0-6.0); RBC 3.39 10^6/uL (3.5-6.1)
[2017-08-15 00:06] LABS: WHITE BLOOD COUNT 8.3 10^3/ul (4.5-11.0)
--- NOTE | 2017-08-15 00:10 | US ---
EXAM: US Abdomen Complete CLINICAL HISTORY: 66 years old, male; Pain; Abdominal pain; Generalized; Additional info: Cholelithiasis, abdominal pain, vomiting TECHNIQUE: Real-time ultrasound of the abdomen (complete) with image documentation. COMPARISON: US - GALL BLADDER 2017-04-30 20:13 FINDINGS: Liver: Unremarkable measuring 16.2 cm. No mass. No intrahepatic bile duct dilation. Gallbladder: Multiple calcified gallstones are present. The gallbladder demonstrates layering density consistent with noncalcified stones or sludge. The gallbladder wall is within normal limits measuring 1 mm. No pericholecystic free fluid. Negative Holman's sign. Common bile duct: Unremarkable as visualized measuring 5 mm. No stones. No dilation. Pancreas: The pancreas is poorly-visualized due to overlying bowel gas. Kidneys: Unremarkable. The right kidney measures 11.7 cm and the left kidney measures 11.8 cm. No stones. No solid mass. No hydronephrosis. Spleen: Unremarkable measuring 9.3 cm. No splenomegaly. Aorta: Unremarkable visualized proximal aorta. No aneurysm. Inferior vena cava: Visualized. IMPRESSION: Gallbladder stones and sludge.
[2017-08-15 00:21] LABS: ALB/GLOB RATIO 1.4 (1.1-1.8); ALBUMIN 4.3 g/dL (3.0-4.8); CALCIUM 9.5 mg/dL (8.4-10.5)
[2017-08-15 02:34] VITALS: BP 133/73; PULSE 89; RESP 17; TEMP 98.2; O2SAT 100
== END 2017-08-15 02:33 | disposition home or self-care (01) ==
LOC: ED 22:00
DX: K80.50 Calculus of bile duct without cholangitis or cholecystitis without obstruction (principal); R11.2 Nausea with vomiting, unspecified; I10 Essential (primary) hypertension; E78.5 Hyperlipidemia, unspecified; E11.9 Type 2 diabetes mellitus without complications; D64.9 Anemia, unspecified; Z87.891 Personal history of nicotine dependence

== ENCOUNTER 2017-08-18 22:58 | Inpatient (IN) | payer MEDICARE, OTHER ==
--- NOTE | 2017-08-18 23:41 | ED PDOC ---
Arrival/HPI - General Historian: Patient - History of Present Illness Symptom Onset: Gradual Quality: Burning, Gas Like Severity Level: 8 Activities at Onset: Rest <Derrick Caraballo - Last Filed: 08/19/17 03:05> <Germán Velásquez - Last Filed: 08/19/17 03:22> - General Chief Complaint: Abdominal Pain Time Seen by Provider: 08/18/17 23:31 - History of Present Illness Narrative History of Present Illness (Text): Patient is a 66 year old male with a past medical history of diabetes, hypertension, hyperlipidemia, CML, and anemia who presents to the Emergency department for intermittent diffuse abdominal pain that radiates to his upper back. Patient states he has had the pain for several weeks now and was seen in ED several days ago. During his previous visits he had a CT scan and abdominal US. He was told he had gallstones and told to avoid high fat meals. Patient says he has nausea, vomiting, decreased appetite. The vomit has been NBNB. Patient also states he has watery clear diarrhea. He denies fever, chills, chest pain, sick contacts or recent travel. 08/18/17 23:46 (Derrick Caraballo) Past Medical History - Provider Review Nursing Documentation Reviewed: Yes - Travel History Have you recently traveled outside [place] w/in the past 3 mons?: No - Infectious Disease Hx of Infectious Diseases: None - Tetanus Immunization Tetanus Immunization: Unknown - Cardiac Hx Cardiac Disorders: Yes Hx Hypertension: Yes - Pulmonary Hx Respiratory Disorders: Yes Hx Pneumonia: Yes (1995) Other/Comment: smoker / Lobectomy - Neurological Hx Neurological Disorder: No - HEENT Hx HEENT Disorder: No - Renal Hx Renal Disorder: No - Endocrine/Metabolic Hx Diabetes Mellitus Type 2: Yes - Hematological/Oncological Hx Anemia: Yes Hx Blood Transfusions: Yes - Integumentary Hx Dermatological Disorder: Yes Other/Comment: edema both legs - Musculoskeletal/Rheumatological Hx Falls: Yes - Gastrointestinal Hx Gastrointestinal Disorders: No - Genitourinary/Gynecological Hx Genitourinary Disorders: No - Psychiatric Hx Psychophysiologic Disorder: No Hx Depression: No Hx Substance Use: No - Past Surgical History Past Surgical History: No Previous - Surgical History Hx Cardiac Catheterization: Yes Hx Coronary Stent: Yes (x1) Other/Comment: LOWER LEFT LOBECTOMY - Anesthesia Hx Anesthesia Reactions: No Hx Malignant Hyperthermia: No - Suicidal Assessment Feels Threatened In Home Enviroment: No <Derrick Caraballo - Last Filed: 08/19/17 03:05> Family/Social History - Physician Review Nursing Documentation Reviewed: Yes Family/Social History: Neoplasm/Cancer Smoking Status: Former Smoker Hx Alcohol Use: Yes (socially) Hx Substance Use: No Hx Substance Use Treatment: No <Derrick Caraballo - Last Filed: 08/19/17 03:05> Allergies/Home Meds <Derrick Caraballo - Last Filed: 08/19/17 03:05> <Germán Velásquez - Last Filed: 08/19/17 03:22> Allergies/Adverse Reactions: Allergies No Known Allergies Allergy (Verified 08/18/17 23:04) Home Medications: Home Meds Medication Instructions Recorded Confirmed Metformin HCl 1,000 mg PO BID 03/15/12 08/18/17 Rosuvastatin Calcium [Crestor] 10 mg PO HS 12/02/13 08/18/17 Furosemide [Lasix] 20 mg PO DAILY 07/14/15 08/18/17 Potassium Chloride [Klor-Con 10 meq PO DAILY 03/05/16 08/18/17 Sprinkle] Imatinib Mesylate 400 mg PO DAILY 03/20/16 08/18/17 Famotidine [Pepcid] 1 tab PO BID 04/17/17 08/18/17 Aspirin [Ecotrin] 81 mg PO DAILY 08/09/17 08/18/17 Review of Systems - Physician Review All systems were reviewed & negative as marked: Yes - Review of Systems Constitutional: Normal Eyes: Normal ENT: Normal Respiratory: Normal Cardiovascular: Normal Gastrointestinal: Abdominal Pain, Diarrhea, Nausea, Vomiting, Appetite Changes. absent: Hematochezia, Hematemesis Genitourinary Male: Normal (patient states no current issues urinating). absent : Dysuria, Urinary Output Changes Musculoskeletal: Normal Skin: Normal Neurological: Normal Endocrine: Normal Hemo/Lymphatic: Normal <Derrick Caraballo Last Filed: 08/19/17 03:05> Physical Exam Vital Signs Reviewed: Yes Temperature: Afebrile Blood Pressure: Hypertensive Pulse: Regular Respiratory Rate: Normal Appearance: Positive for: Well-Appearing, Non-Toxic Pain Distress: Moderate Mental Status: Positive for: Alert and Oriented X 3 - Systems Exam Head: Present: Atraumatic, Normocephalic Pupils: Present: PERRL Extroacular Muscles: Present: EOMI Conjunctiva: Present: Normal Mouth: Present: Moist Mucous Membranes Respiratory/Chest: Present: Clear to Auscultation, Good Air Exchange. No: Respiratory Distress, Accessory Muscle Use, Wheezes, Rales Cardiovascular: Present: Regular Rate and Rhythm, Normal S1, S2 Abdomen: Present: Tenderness, Normal Bowel Sounds. No: Distention Upper Extremity: No: Cyanosis, Edema Lower Extremity: Present: NORMAL PULSES. No: Edema, Tenderness Neurological: Present: GCS=15, CN II-XII Intact, Speech Normal Skin: Present: Warm, Normal Color Psychiatric: Present: Alert, Oriented x 3 <Derrick Caraballo - Last Filed: 08/19/17 03:05> Vital Signs Temp Pulse Resp BP Pulse Ox 08/18/17 23:10 97.8 F 90 20 147/70 100 Medical Decision Making - Lab Interpretations I have reviewed the lab results: Yes <Derrick Caraballo - Last Filed: 08/19/17 03:05> <Germán Velásquez - Last Filed: 08/19/17 03:22> ED Course and Treatment: Plan: - CBC, CMP, amylase, lipase - fluids, zofran, toradol, pepcid - Reassess and disposition 08/18/17 23:57 Spoke to surgery resident Tom, surgery recommended repeat abd US Abd US ordered 08/19/17 00:38 Lab values significant for BUN of 49 and Cr of 8.2 08/19/17 01:[address] Valerio, advised to start fluids , will accept into his service for acute renal failure/ abdominal pain 08/19/17 01:56 (Derrick Caraballo) Patient Seen With Resident: In agreement with resident note which contains more details about the patient. Patient was seen and evaluated with resident. Came up with plan and treatment together. 66 year old male presents complaining of intermittent diffuse abdominal pain radiating to the upper back. Plan: -- Labs -- Pepcid, IV Fluids, Toradol, Zofran Inj -- Abdomen Complete US (Germán Velásquez) - Lab Interpretations Lab Results: 08/19/17 00:24 08/19/17 00:24 Lab Results 08/19/17 00:24: Sodium 138, Potassium 4.3, Chloride 98, Carbon Dioxide 24, Anion Gap 20, BUN 49 H, Creatinine 8.2 H* D, Est GFR ( Amer) 8, Est GFR ( Non-Af Amer) 7, Random Glucose 115 H, Calcium 9.0, Total Bilirubin 0.5, AST 16 L D, ALT 16, Alkaline Phosphatase 67, Total Protein 7.0, Albumin 4.1, Globulin 2.9, Albumin/Globulin Ratio 1.4, Amylase 47, Lipase 188 08/19/17 00:24: WBC 8.3, RBC 3.52, Hgb 10.9 L, Hct 31.2 L, MCV 88.6, MCH 31.0, MCHC 34.9, RDW 13.9, Plt Count 224, MPV 10.4, Gran % 75.2 H, Lymph % (Auto) 11.5 L, Kay % (Auto) 11.2 H, Eos % (Auto) 1.6, Baso % (Auto) 0.5, Gran # 6.26, Lymph # (Auto) 1.0 L, Kay # (Auto) 0.9 H, Eos # (Auto) 0.1, Baso # (Auto) 0.04 - RAD Interpretation Radiology Orders: 08/19/17 00:39 ABDOMEN COMPLETE [US] Stat - Medication Orders Current Medication Orders: Sodium Chloride (Sodium Chloride 0.9%) 1,000 mls @ 75 mls/hr IV .[id number] [facility] Last Admin: 08/19/17 02:17 Dose: 75 mls/hr eMAR Start Stop Document 08/19/17 02:17 SS (Rec: 08/19/17 02:17 SS [id number]) Intravenous Solution Start Date 08/19/17 Start Time 02:17 Discontinued Medications Famotidine (Pepcid) 20 mg IVP STAT STA Stop: 08/18/17 23:45 Last Admin: 08/19/17 00:29 Dose: 20 mg IVP Administration Document 08/19/17 00:29 SS (Rec: 08/19/17 00:29 SS [id number]) Charges for Administration # of IVP Administrations 1 Sodium Chloride (Sodium Chloride 0.9%) 1,000 mls @ 999 mls/hr IV .Q1H1M STA Stop: 08/19/17 00:58 Last Admin: 08/19/17 00:29 Dose: 999 mls/hr eMAR Start Stop Document 08/19/17 00:29 SS (Rec: 08/19/17 00:29 SS [id number]) Intravenous Solution Start Date 08/19/17 Start Time 00:29 End Date 08/19/17 End time 01:29 Total Infusion Time 60 Ketorolac Tromethamine (Toradol) 30 mg IVP STAT STA Stop: 08/18/17 23:44 Last Admin: 08/19/17 00:29 Dose: 30 mg MAR Pain Assessment Document 08/19/17 00:29 SS (Rec: 08/19/17 00:29 SS [id number]) Pain Reassessment Is this a pain reassessment? 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 MD/ has examined the patient and agrees with the treatment plan. - Scribe Statement The provider has reviewed the documentation as recorded by the Scribe <Germán Velásquez - Last Filed: 08/19/17 03:22> - Scribe Statement Vish Prieto Provider Scribe Attestation: All medical record entries made by the Scribe were at my direction and personally dictated by me. I have reviewed the chart and agree that the record accurately reflects my personal performance of the history, physical exam, medical decision making, and the department course for this patient. I have also personally directed, reviewed, and agree with the discharge instructions and disposition. (Germán Velásquez) Disposition/Present on Arrival - Present on Arrival Any Indicators Present on Arrival: No History of DVT/PE: No History of Uncontrolled Diabetes: No Urinary Catheter: No History of Decub. Ulcer: No History Surgical Site Infection Following: None - Disposition Have Diagnosis and Disposition been Completed?: Yes Disposition Time: 03:04 <Derrick Carbaallo - Last Filed: 08/19/17 03:05> <Germán Velásquez - Last Filed: 08/19/17 03:22> - Disposition Diagnosis: Renal failure, Cholelithiasis, Dehydration Patient Problems: Current Active Problems Problem Status Onset Renal failure Acute Condition: STABLE
[2017-08-18] MEDS ORDERED: Sodium Chloride 0.9% 1,000 ML IV STA (23:58)
[2017-08-19 00:49] LABS: BASO # 0.04 K/mm3 (0.0-2.0); BASO % 0.5 % (0.0-3.0); EOS # 0.1 (0.0-0.7); EOS % 1.6 % (1.5-5.0); GRAN # 6.26 (1.4-6.5); GRAN % 75.2 % (50.0-68.0); HEMOGLOBIN 10.9 g/dL (14.0-18.0); LYMPH % 11.5 % (22.0-35.0); MEAN CELL VOLUME 88.6 fl (80.0-105.0); MEAN CORPUSCULAR HGB CONC 34.9 g/dl (31.0-37.0); MEAN PLATELET VOLUME 10.4 fl (7.0-11.0); MONO # 0.9 (0.1-0.6); MONO % 11.2 % (1.0-6.0); RBC 3.52 10^6/uL (3.5-6.1); RED CELL DISTRIBUTION WIDTH 13.9 % (11.5-14.5); WHITE BLOOD COUNT 8.3 10^3/ul (4.5-11.0)
[2017-08-19 01:04] LABS: ALB/GLOB RATIO 1.4 (1.1-1.8); ALBUMIN 4.1 g/dL (3.0-4.8)
[2017-08-19] MEDS: Sodium Chloride 0.9% 1,000 ML IV SCH ×2 (02:17→21:32)
--- NOTE | 2017-08-19 02:38 | US ---
EXAM: US Abdomen Complete CLINICAL HISTORY: 66 years old, male; Pain; Abdominal pain; Generalized; Additional info: Abdominal pain/ gallstones TECHNIQUE: Real-time ultrasound of the abdomen (complete) with image documentation. COMPARISON: US - GALL BLADDER 2017-04-30 20:13 FINDINGS: Liver: Fatty infiltration. No mass. No intrahepatic ductal dilatation. Gallbladder: Gallstones. Sludge. No wall thickening. No pericholecystic fluid. No sonographic Holman's sign. Common bile duct: No dilatation. No stones. Pancreas: Obscured by overlying bowel gas. Kidneys: Normal echogenicity. No hydronephrosis. Spleen: No splenomegaly. Aorta: Unremarkable. No aneurysm. Inferior vena cava: Unremarkable. Free fluid: No significant free fluid. IMPRESSION: 1. Cholelithiasis. 2. Incidental/non-acute findings are described above.
--- NOTE | 2017-08-19 03:44 | CP.PCM.CON ---
History of Present Illness - History of Present Illness History of Present Illness: General Surgery consult for Dr. Tyson Consulted for: abdominal pain, cholelithiasis Patient is a 66M with Many medical problems including CAD with stents, chronic gastritis, diabetes mellitus type 2, CKD, and CML who presented to the ER with persisent epigastric abdominal pain. Patient states that the pain has been present for the past 2 weeks, is burning in nature, and occurs in the epigastrium and then spreads to the rest of the abdomen. Pain is not associated with eating but happens at night. Patient also reports nausea, vomiting clear non-bilious, non-bloody emesis and decreased ability to eat. Patient also states that he past few days he has had clear diarrhea, but is normally regular with once daily bowel movements. Denies hematochezia, melena, fevers, chills, dysuria, hematuria, or any other symptoms. Though patient denies history of gallstones he was admitted in 04/2016 for similar symptoms that started in March and had gallstones present at that time, had suspicion of GI bleed, underwent EGD and was found to have chronic gastritis which was treated with outpatient famotidine, sucralfate, and protonix. Patient states he had a colonoscopy in past with 3 polyps removed but does not know how many years ago it was. PMH: CAD with stents, chronic gastritis, diabetes mellitus type 2, CKD, CML, HTN , HLD PSH: tonsilectomy, appendectomy, left lower lobe of the lung All: NKDA Social: former smoker 1PPD/30 years quit 3 months ago. Occasional ETOH. Smokes marijuana occasionally Review of Systems - Review of Systems All systems: reviewed and no additional remarkable complaints except (as per HPI ) Past Patient History - Infectious Disease Hx of Infectious Diseases: None - Tetanus Immunizations Tetanus Immunization: Unknown - Past Medical History & Family History Past Medical History?: Yes Past Family History: Reviewed and not pertinent - Past Social History Smoking Status: Former Smoker Alcohol: Occasional Drugs: Cannabis - CARDIAC Hx Cardiac Disorders: Yes Hx Hypertension: Yes - PULMONARY Hx Respiratory Disorders: Yes Hx Pneumonia: Yes (1995) Other/Comment: smoker / Lobectomy - NEUROLOGICAL Hx Neurological Disorder: No - HEENT Hx HEENT Problems: No - RENAL Hx Chronic Kidney Disease: No - ENDOCRINE/METABOLIC Hx Diabetes Mellitus Type 2: Yes - HEMATOLOGICAL/ONCOLOGICAL Hx Anemia: Yes Hx Blood Transfusions: Yes - INTEGUMENTARY Hx Dermatological Problems: Yes Other/Comment: edema both legs - MUSCULOSKELETAL/RHEUMATOLOGICAL Hx Falls: Yes - GASTROINTESTINAL Hx Gastrointestinal Disorders: No - GENITOURINARY/GYNECOLOGICAL Hx Genitourinary Disorders: No - PSYCHIATRIC Hx Psychophysiologic Disorder: No Hx Depression: No Hx Substance Use: No - SURGICAL HISTORY Hx Cardiac Catheterization: Yes Hx Coronary Stent: Yes (x1) Other/Comment: LOWER LEFT LOBECTOMY - ANESTHESIA Hx Anesthesia Reactions: No Hx Malignant Hyperthermia: No Meds Allergies/Adverse Reactions: Allergies Allergy/AdvReac Type Severity Reaction Status Date / Time No Known Allergies Allergy Verified 08/18/17 23:04 - Medications Medications: Current Medications Sodium Chloride (Sodium Chloride 0.9%) 1,000 mls @ 75 mls/hr IV .[id number] SPENCER Last Admin: 08/19/17 02:17 Dose: 75 mls/hr Physical Exam - Constitutional Appears: Well, Non-toxic, No Acute Distress - Head Exam Head Exam: ATRAUMATIC, NORMOCEPHALIC - Eye Exam Eye Exam: Normal appearance. absent: Conjunctival injection, Scleral icterus - ENT Exam ENT Exam: Mucous Membranes Moist, Normal Oropharynx - Respiratory Exam Respiratory Exam: NORMAL BREATHING PATTERN. absent: Accessory Muscle Use, Respiratory Distress - Cardiovascular Exam Cardiovascular Exam: RRR - GI/Abdominal Exam GI & Abdominal Exam: Soft, Tenderness (epigastric). absent: Distended, Guarding , Rebound Additional comments: negative sofia's sign, no mcburney's point tenderness, negative rovsings' sign - Extremities Exam Extremities exam: Negative for: calf tenderness, pedal edema Additional comments: right lower leg with chronic skin thickening and area of former skin breakdown, currently healing well, no current wounds - Back Exam Back exam: absent: CVA tenderness (L), CVA tenderness (R) - Neurological Exam Neurological exam: Alert, Oriented x3 - Psychiatric Exam Psychiatric exam: Normal Affect, Normal Mood - Skin Skin Exam: Dry, Intact, Normal Color, Warm Additional comments: except as noted above Results - Vital Signs Recent Vital Signs: Last Vital Signs Temp 97.8 F 08/18/17 23:10 Pulse 90 08/18/17 23:10 Resp 20 08/18/17 23:10 BP 147/70 08/18/17 23:10 Pulse Ox 100 08/18/17 23:10 - Labs Result Diagrams: 08/19/17 00:24 08/19/17 00:24 - Imaging and Cardiology US - abdomen Status: Image reviewed by me, Report reviewed by me Assessment & Plan - Assessment and Plan (Free Text) Assessment: 66M with cholelithiasis, chronic gastritis and chronic epigastric abdominal pain Plan: HIDA scan trend CBC/CMP NPO except medications PRN pain and nausea medication IVF Patient has no sonographic or clinical signs of acute cholecystitis, and no LFT elevation. Patient may have symptomatic cholelithiasis though the presentation is not typical--no bilious emesis, no post-prandial pain, etc. Will follow HIDA scan results, recommend restarting patient's home GERD medications, and a possible GI consult depending on the HIDA scan results. Further surgical planning pending work up. Patient is having an acute exacerbation of chronic CKD with BUN of 49 and creatinine of 8.2 and will need nephrology optimization prior to any surgical intervention Will discuss with Dr. Jah Santos, PGY2
[2017-08-19 05:18] VITALS: BMI 32.1
[2017-08-19 07:35] LABS: BASO # 0.03 K/mm3 (0.0-2.0); BASO % 0.4 % (0.0-3.0); EOS # 0.1 (0.0-0.7); GRAN # 5.28 (1.4-6.5); GRAN % 76.1 % (50.0-68.0); HEMOGLOBIN 10.7 g/dL (14.0-18.0); LYMPH # 0.8 (1.2-3.4); LYMPH % 12.1 % (22.0-35.0); MEAN CELL VOLUME 88.4 fl (80.0-105.0); MEAN CORPUSCULAR HGB CONC 35.1 g/dl (31.0-37.0); MEAN PLATELET VOLUME 10.2 fl (7.0-11.0); MONO # 0.7 (0.1-0.6); MONO % 9.4 % (1.0-6.0); RBC 3.45 10^6/uL (3.5-6.1); RED CELL DISTRIBUTION WIDTH 13.9 % (11.5-14.5); WHITE BLOOD COUNT 6.9 10^3/ul (4.5-11.0)
[2017-08-19 08:02] LABS: INR 0.97 (0.93-1.08); PARTIAL THROMBOPLASTIN TIME 25.5 Seconds (25.1-36.5); PROTHROMBIN TIME 11.1 SECONDS (9.4-12.5)
[2017-08-19 08:03] LABS: ALB/GLOB RATIO 1.4 (1.1-1.8); ALBUMIN 3.7 g/dL (3.0-4.8); CALCIUM 8.7 mg/dL (8.4-10.5)
[2017-08-19] MEDS: HYDROmorphone 0.5 mg/0.5 ml ISec IVP PRN ×2 (08:30→17:28)
[2017-08-19 09:49] LABS: TROPONIN I < 0.01 ng/mL
[2017-08-19] MEDS: oxyCODONE 5 mg Immediate Release Tab PO SCH ×3 (10:34→21:34)
--- NOTE | 2017-08-19 10:45 | PN ---
DATE: 08/19/2017 SUBJECTIVE: Emeka Handy is seen in 374, bed 1. Afebrile. Vital signs were normal. 250 pounds. White count is normal at 6.9, hemoglobin 10.5. Coags normal. BUN grossly abnormal, BUN 49; creatinine 8.2. Glucose 115. Ultrasound of the gallbladder is remarkable for cholelithiasis without secondary signs. Admitted from the emergency room with diabetes, hypertension, hyperlipidemia, CML, anemia. Admitted for diffuse abdominal pain, radiating to the upper back for several weeks. He has nausea, vomiting and now diarrhea, watery. No fevers or chills. He had had a cardiac cath, coronary stents and a left lower lobectomy. The patient is admitted for workup of the abdominal pain, but also clarification of his renal status. Being followed by Dr. Welch, who admitted the patient. HIDA scan is pending. The patient would benefit from GI consultation because of the diarrhea. I will follow the patient with you, but without a clear diagnosis and no current surgical intention. Ralph Tyson MD
--- NOTE | 2017-08-19 11:03 | CARD ---
APPROVED REPORT EKG Measurement Heart [id number] <Conclusion> Normal sinus rhythm Normal ECG
--- NOTE | 2017-08-19 11:04 | CARD ---
APPROVED REPORT EKG Measurement Heart [id number] <Conclusion> Normal sinus rhythm Normal ECG No change
--- NOTE | 2017-08-19 11:25 | NM ---
PROCEDURE: Nuclear Medicine Hepatobiliary Scan HISTORY: RUQ pain, possible acute cholecystitis COMPARISON: None available. TECHNIQUE: 5.7 mCi of technetium 99m Mebrofenin was administered intravenously. Planar images of the abdomen were obtained at 5 min intervals to 60 mins. Delayed images were also obtained. FINDINGS: LIVER: Timely and homogenous uptake. COMMON BILE DUCT: identified at 15 mins. GALLBLADDER: identified at 15 mins. SMALL BOWEL: Not visualized IMPRESSION: No evidence of cholecystitis. Gallbladder is visualized.
--- NOTE | 2017-08-19 14:14 | HP ---
DATE OF EXAM: 08/19/2017 HISTORY OF PRESENT ILLNESS: The patient is a 66-year-old male who has come into the hospital with past medical history of diabetes, hypertension, dyslipidemia and CML. The patient has been having diffuse abdominal pain. The pain radiates to the back. The patient says that he has been losing weight. He does have a history of gallstones. He says he has been having nausea and vomiting. His appetite is decreased. He has been having diarrhea. He denies any fevers or chills. No headaches, no dizziness, no dysarthria, no weakness in the arms or the legs. REVIEW OF SYSTEMS: All other review of symptoms are within normal limits except what was mentioned. ALLERGIES: NO KNOWN DRUG ALLERGIES. MEDICATIONS: Home medications have been reviewed. He is on metformin, Crestor, Lasix, potassium, imatinib, Pepcid, aspirin. PAST MEDICAL HISTORY: 1. Diabetes type 2. 2. Morbid obesity. 3. Hypertension. 4. Cholelithiasis. 5. Chronic venous ulcers. 6. Coronary artery disease with stent. PAST SURGICAL HISTORY: Appendectomy, tonsillectomy. SOCIAL HISTORY: The patient denies smoking or drinking alcohol. He is a former smoker. He smoked one pack per day for 30 years. He did quit about three months ago. He occasionally smokes marijuana. FAMILY HISTORY: Noncontributory. PHYSICAL EXAMINATION VITAL SIGNS: Temperature is 97.5, pulse of 85, blood pressure is 155/75, respirations 19, O2 saturation 97%. Height is 6 feet 2 inches, weight is 250 pounds, BMI is 33.1. GENERAL: The patient lying in bed, uncomfortable, and in no acute distress. HEENT: Atraumatic and normocephalic. Anicteric sclerae. Moist mucosa. [place] conjunctivae. No oral lesions. NECK: No JVD, anterior and posterior adenopathy, thyromegaly, or bruits. CARDIOVASCULAR: S1 and S2 regular. No murmur, rubs, or gallop. LUNGS: Clear to auscultation bilaterally. No wheezes, rales, or rhonchi. ABDOMEN: Bowel sounds are positive, soft. There is epigastric tenderness. No rebound, no guarding. EXTREMITIES: No cyanosis, clubbing, or edema. NEUROLOGIC: No facial asymmetry. Tongue is midline. No uvula deviation. Power is 5/5 upper extremity and lower extremity. Sensation intact in upper extremity and lower extremity. PSYCHIATRIC: He is awake, alert and oriented x3. No anxiety or depression. He has normal affect. GENITOURINARY: No CVA tenderness. VASCULAR: 2+ pulses in the carotid pulses and pedal pulses. SKIN: No erythema or nodules SPINE: Shows normal curvature. LABORATORY DATA: White count is 8.3, hemoglobin 10.9 and platelet count is 224. INR is 0.97. Chemistry shows a sodium of 138, potassium is 4.3; creatinine is 8.2, repeat is 8.4; albumin is 4.1. ASSESSMENT: 1. Abdominal pain. 2. Acute kidney injury. 3. Diabetes type 2. 4. Hypertension. 5. Cholelithiasis. 6. Coronary artery disease with stent. 7. Chronic myeloid leukemia. PLAN: The patient is going to be admitted to the hospital. He was given IV fluids. He is on Dilaudid for pain. He is going to be on Percocet. He is going to continue with IV fluids. The patient is on Tylenol. HIDA scan has been ordered. I did speak to Dr. Tyson regarding the case. We will order urine studies to evaluate the cause of his kidney injury. He is currently n.p.o. The patient also had an abdominal ultrasound done that shows cholelithiasis. The kidney showed normal echogenicity, . Asif Welch MD
[2017-08-19 15:36] LABS: TROPONIN I < 0.01 ng/mL
[2017-08-19 16:07] LABS: COMPLEMENT C4 42.3 mg/dL (14.0-44.0)
[2017-08-19 21:08] LABS: PH,URINE 5.5 (4.7-8.0); URINE BILIRUBIN SMALL (NEGATIVE); URINE BLOOD TRACE-INTACT (NEGATIVE); URINE GLUCOSE (UA) NEGATIVE (NEGATIVE); URINE LEUKOCYTE ESTERASE NEGATIVE Leu/uL (NEGATIVE); URINE PROTEIN 30 mg/dL (<30 mg/dL); URINE UROBILINOGEN 0.2 E.U./dL (<1 E.U./dL)
[2017-08-19 21:22] LABS: CREATININE,RANDOM URINE 211 mg/dL; TOTAL PROTEIN,RANDOM URINE 35 mg/L
[2017-08-19 21:33] LABS: OPIATES, UR NEGATIVE (NEGATIVE)
[2017-08-19 21:39] LABS: URINE COLOR YELLOW (YELLOW)
[2017-08-19 21:40] LABS: URINE APPEARANCE SL CLOUDY (CLEAR)
[2017-08-19 21:55] LABS: TROPONIN I < 0.01 ng/mL
[2017-08-19 21:57] LABS: BARBITURATES, UR NEGATIVE (NEGATIVE); BENZODIAZEPINES, UR NEGATIVE (NEGATIVE); PHENCYCLIDINE, UR NEGATIVE (NEGATIVE)
[2017-08-19 21:58] LABS: URINE EPITHELIAL CELLS 0 - 2 /hpf (0-5)
[2017-08-19 21:59] LABS: URINE BACTERIA MOD (NEG)
[2017-08-20] MEDS: oxyCODONE 5 mg Immediate Release Tab PO SCH ×4 (04:00→22:00)
[2017-08-20 06:23] LABS: HEMOGLOBIN 10.2 g/dL (14.0-18.0); MEAN CELL VOLUME 88.7 fl (80.0-105.0); MEAN CORPUSCULAR HEMOGLOBIN 31.1 pg (25.0-35.0); MEAN CORPUSCULAR HGB CONC 35.1 g/dl (31.0-37.0); MEAN PLATELET VOLUME 10.8 fl (7.0-11.0); RBC 3.28 10^6/uL (3.5-6.1); RED CELL DISTRIBUTION WIDTH 13.8 % (11.5-14.5); WHITE BLOOD COUNT 5.4 10^3/ul (4.5-11.0)
[2017-08-20 06:32] LABS: IRON 87 ug/dL (45-180)
[2017-08-20 06:41] LABS: % IRON SATURATION 36 % (20-55); TOTAL IRON BINDING CAPACITY 239 ug/dL (261-462)
[2017-08-20 07:20] LABS: ALB/GLOB RATIO 1.1 (1.1-1.8); ALBUMIN 3.2 g/dL (3.0-4.8); CALCIUM 8.6 mg/dL (8.4-10.5)
[2017-08-20] MEDS: HYDROmorphone 0.5 mg/0.5 ml ISec IVP PRN ×2 (09:14→21:30)
[2017-08-20] MEDS ORDERED: Darbepoetin Alfa 100 mcg/ml Inj SC ONE (10:17)
[2017-08-20] MEDS ORDERED: Sodium Chloride 0.9% 1,000 ML IV SCH (11:47)
--- NOTE | 2017-08-20 11:54 | CP.PCM.PN ---
Subjective - Date & Time of Evaluation Date of Evaluation: 08/20/17 Time of Evaluation: 09:20 - Subjective Subjective: Patient seen and examined this AM. this AM after breakfast patien dickson an episode of vomiting moderate amount of clear emesis with food particles. Patient complains of persistent pain and nausea and some diarrhea--nonbloody, normal color Objective - Vital Signs/Intake and Output Vital Signs (last 24 hours): Temp Pulse Resp BP Pulse Ox 98.0 F 72 18 127/70 97 08/20/17 06:00 08/20/17 06:00 08/20/17 06:00 08/20/17 06:00 08/20/17 06:00 Intake and Output: 08/20/17 08/20/17 06:59 18:59 Intake Total 900 240 Output Total 900 300 Balance 0 -60 - Medications Medications: Current Medications Acetaminophen (Tylenol 325mg Tab) 650 mg PO Q6H PRN PRN Reason: Pain, Mild (1-3) Hydromorphone HCl (Dilaudid) 0.5 mg IVP Q6H PRN PRN Reason: Pain, severe (8-10) Last Admin: 08/20/17 09:14 Dose: 0.5 mg Sodium Chloride (Sodium Chloride 0.9%) 1,000 mls @ 125 mls/hr IV .Q8H [facility] Ondansetron HCl (Zofran Inj) 4 mg IVP Q6H PRN PRN Reason: Nausea/Vomiting Last Admin: 08/20/17 09:14 Dose: 4 mg Oxycodone HCl (Oxycodone Immediate Release Tab) 5 mg PO Q6H [facility] Last Admin: 08/20/17 04:00 Dose: Not Given Pantoprazole Sodium (Protonix Inj) 40 mg IVP Q12 [facility] Last Admin: 08/20/17 09:15 Dose: 40 mg - Labs Labs: 08/20/17 06:05 08/20/17 06:05 PT 11.1 SECONDS (9.4-12.5) 08/19/17 07:30 INR 0.97 (0.93-1.08) 08/19/17 07:30 APTT 25.5 Seconds (25.1-36.5) 08/19/17 07:30 - Constitutional Appears: Well, Non-toxic, No Acute Distress - Head Exam Head Exam: ATRAUMATIC, NORMOCEPHALIC - Eye Exam Eye Exam: Normal appearance. absent: Conjunctival injection, Scleral icterus - ENT Exam ENT Exam: Mucous Membranes Moist, Normal Oropharynx - Respiratory Exam Respiratory Exam: NORMAL BREATHING PATTERN. absent: Accessory Muscle Use, Respiratory Distress - Cardiovascular Exam Cardiovascular Exam: RRR - GI/Abdominal Exam GI & Abdominal Exam: Soft. absent: Distended, Tenderness - Extremities Exam Extremities Exam: absent: Calf Tenderness, Pedal Edema, Tenderness - Neurological Exam Neurological Exam: Alert, Awake, Oriented x3 - Skin Skin Exam: Dry, Intact, Normal Color, Warm Assessment and Plan - Assessment and Plan (Free Text) Assessment: 66M with chronic gastritis, cholelithiasis and LESIA on top of CKD Plan: Patient has recurrent epigastric pain, nausea, and vomiting. Possible mixed picture of chronic gastritis failed outpatient therapy (possibly due to poor patient compliance) and symptomatic cholelithiasis. Would recommend cholecystectomy due to refractory nature of symptoms but patient must have improvement in current kidney injury prior to OR. Would also recommend repeat EGD to re-evaluate gastritis NPO d/t vomiting PRN nausea and pain medication Trend BMP to evaluate kidney function Increase fluids to 125cc/h as patient's UOP is low Encourage ambulation Monitor urine and bowel function closely Discussed with Dr. Jah Santos, PGY2
--- NOTE | 2017-08-20 13:31 | PN ---
DATE: 08/20/2017 SUBJECTIVE: The patient has no complaints of any chest pain, no shortness of breath, no headaches or dizziness. PHYSICAL EXAMINATION VITAL SIGNS: Temperature is 98.7, pulse of 68, blood pressure is 133/66, respirations 18. GENERAL: The patient is lying in bed, flat, comfortable. HEENT: No oral lesion. Anicteric sclerae. Moist mucosa. NECK: No JVD, adenopathy, or thyromegaly. CARDIOVASCULAR: S1 and S2, regular. No murmurs, rubs, or gallops. LUNGS: Clear to auscultation bilaterally. No wheeze, rales, or rhonchi. ABDOMEN: Bowel sounds are positive, soft, nontender and nondistended. EXTREMITIES: No cyanosis, clubbing or edema. LABORATORY DATA: White count of 5.4, hemoglobin 10.2. Creatinine is 7.1. HIDA scan is negative. ASSESSMENT: 1. Acute kidney injury. 2. Abdominal pain. 3. Diabetes type 2. 4. Hypertension. 5. Cholelithiasis. 6. Coronary artery disease with stent. 7. Chronic myeloid leukemia. PLAN: The patient is currently comfortable. The creatinine continues to be elevated, but has improved a bit, creatinine 7.1. The patient's iron saturation is 36%. He has C3, C4 that is negative. Urine tox is negative. The patient has [id number] ratio that shows no protein in his urine, the eosinophils have been negative. I believe that his acute kidney injury is prerenal. I will continue his IV fluids. The patient is on oxycodone for pain. He is on Protonix daily. He is on Dilaudid. He is on a renal diet. Asif Welch MD
--- NOTE | 2017-08-20 16:03 | CP.PCM.CON ---
<Linda Chavarria - Last Filed: 08/20/17 16:00> History of Present Illness - History of Present Illness History of Present Illness: Seen and examined at the bedside earlier today, chart reviewed. Request for GI consultation is for abdominal pain and diarrhea. HPI: This is a 66-year-old male with a past medical history of coronary artery disease with stents, DVT, diabetes mellitus type 2, chronic kidney disease and CML came to the emergency room with complaints of constant epigastric abdominal pain for at least 2 weeks. He endorses that it starts in the epigastric area and radiates to her right side to his back. He denies any postprandial pain, and occurs at any time. He does complain of nausea and vomiting but denies hematemesis. He also reports weight loss of at least 100 pounds within 2 months , he does report loss of appetite ,especially with these complaints,no complaints of any difficulty swallowing, as far as bowel movements he complains of diarrhea, denies any recent use of antibiotics, travel or sick contacts. He reports that the diarrhea is intermittent and small amounts, denies any melena or bright red blood per rectum. Occasional acid reflux. Reports that he is on stomach medication. He did have an endoscopy by our service in May 02, 2017 to evaluate for GI bleed, he was found to have chronic gastritis and the duodenum was normal. The patient's last colonoscopy was several years ago he was found to have polyps. Patient states that she was recently removed off his Plavix last week by his english and reading instructor. He was no longer on any blood thinners. On admission he had an abdominal ultrasound which did show gallstones, no CBD dilatation he also had a HIDA scan which was negative for cholecystitis. In review of his chart his last CT scan was on 08/09/2017 of the chest abdomen and pelvis and this did show gallstones but no dilation or obstruction. Did show jejunal wall thickening. mild ileus.enteritis. He did have an episode of NBNB vomiting this am after breakfast. He is currently NPO. Past medical history: Coronary artery disease with stents, DVT on the right leg status post filter, chronic gastritis, chronic kidney disease, diabetes mellitus , CML, hyperlipidemia, hypertension Past surgical history is appendectomy, tonsillectomy Allergies: No known drug allergies Medications: Reviewed as per MAR, recently taken off of Plavix as per patient by english and reading instructor Social history: Former smoker, quit about 3 months ago, drinks alcohol socially , usually a few beers but not excessively, smokes marijuana last was week ago, usually for recreation but did help with appetite and pain Family history: Mother: from cancer but patient does not know what type of cancer ROS: Systems reviewed with positive finding see HPI Past Patient History - Infectious Disease Hx of Infectious Diseases: None - Tetanus Immunizations Tetanus Immunization: Unknown - Past Medical History & Family History Past Medical History?: Yes Past Family History: Reviewed and not pertinent - Past Social History Smoking Status: Light Smoker < 10 Cigarettes Daily - CARDIAC Hx Cardiac Disorders: Yes Hx Circulatory Problems: Yes Hx Hypercholesterolemia: Yes Hx Hypertension: Yes Hx Peripheral Vascular Disease: Yes - PULMONARY Hx Respiratory Disorders: Yes Hx Pneumonia: Yes (1995) Other/Comment: smoker / Lobectomy - NEUROLOGICAL Hx Neurological Disorder: No - HEENT Hx HEENT Problems: No - RENAL Hx Chronic Kidney Disease: No - ENDOCRINE/METABOLIC Hx Endocrine Disorders: Yes Hx Diabetes Mellitus Type 2: Yes (metformin) - HEMATOLOGICAL/ONCOLOGICAL Hx Blood Disorders: Yes Hx Anemia: No Hx Cancer: Yes (leukemia) - INTEGUMENTARY Hx Dermatological Problems: No - MUSCULOSKELETAL/RHEUMATOLOGICAL Hx Falls: No - GASTROINTESTINAL Hx Gastrointestinal Disorders: Yes Hx Gall Bladder Disease: Yes (cholelithiasis) Hx Gastroesophageal Reflux: Yes - GENITOURINARY/GYNECOLOGICAL Hx Genitourinary Disorders: No - PSYCHIATRIC Hx Substance Use: No - SURGICAL HISTORY Hx Surgeries: Yes (tonsillectomy) Hx Appendectomy: Yes Hx Cardiac Catheterization: Yes Hx Coronary Stent: Yes (x1) Other/Comment: LOWER LEFT LOBECTOMY - ANESTHESIA Hx Anesthesia Reactions: No Hx Malignant Hyperthermia: No Meds Allergies/Adverse Reactions: Allergies Allergy/AdvReac Type Severity Reaction Status Date / Time No Known Allergies Allergy Verified 08/18/17 23:04 - Medications Medications: Current Medications Acetaminophen (Tylenol 325mg Tab) 650 mg PO Q6H PRN PRN Reason: Pain, Mild (1-3) Hydromorphone HCl (Dilaudid) 0.5 mg IVP Q6H PRN PRN Reason: Pain, severe (8-10) Last Admin: 08/20/17 09:14 Dose: 0.5 mg Sodium Chloride (Sodium Chloride 0.9%) 1,000 mls @ 125 mls/hr IV .Q8H [facility] Ondansetron HCl (Zofran Inj) 4 mg IVP Q6H PRN PRN Reason: Nausea/Vomiting Last Admin: 08/20/17 09:14 Dose: 4 mg Oxycodone HCl (Oxycodone Immediate Release Tab) 5 mg PO Q6H [facility] Last Admin: 08/20/17 04:00 Dose: Not Given Pantoprazole Sodium (Protonix Inj) 40 mg IVP Q12 [facility] Last Admin: 08/20/17 09:15 Dose: 40 mg Physical Exam - Constitutional Appears: No Acute Distress - Head Exam Head Exam: NORMOCEPHALIC - Eye Exam Eye Exam: Normal appearance. absent: Scleral icterus - ENT Exam ENT Exam: Mucous Membranes Moist - Neck Exam Neck exam: Positive for: Normal Inspection - Respiratory Exam Respiratory Exam: Clear to Auscultation Bilateral, NORMAL BREATHING PATTERN. absent: Respiratory Distress - Cardiovascular Exam Cardiovascular Exam: +S1, +S2 - GI/Abdominal Exam GI & Abdominal Exam: Normal Bowel Sounds, Soft. absent: Guarding, Organomegaly , Rebound, Tenderness (just had analgesia) - Extremities Exam Extremities exam: Positive for: pedal edema (right leg appear swollen, as per patient chronic, had DVT, TEDS present ), pedal pulses present. Negative for: calf tenderness - Neurological Exam Neurological exam: Alert, Oriented x3 - Skin Skin Exam: Dry, Warm Results - Vital Signs Recent Vital Signs: Last Vital Signs Temp 98.0 F 08/20/17 06:00 Pulse 72 08/20/17 06:00 Resp 18 08/20/17 06:00 BP 127/70 08/20/17 06:00 Pulse Ox 97 08/20/17 06:00 - Labs Result Diagrams: 08/20/17 06:05 08/20/17 06:05 Labs: Laboratory Results - last 24 hr 08/19/17 08/19/17 08/19/17 07:30 11:07 15:05 WBC RBC Hgb Hct MCV MCH MCHC RDW Plt Count MPV Sodium Potassium Chloride Carbon Dioxide Anion Gap BUN Creatinine Est GFR ( Amer) Est GFR (Non-Af Amer) POC Glucose (mg/dL) 87 Random Glucose Calcium Iron TIBC % Saturation Total Bilirubin AST ALT Alkaline Phosphatase Lactate Dehydrogenase 358 Total Creatine Kinase 39 Troponin I < 0.01 Total Protein Albumin Globulin Albumin/Globulin Ratio Urine Color Urine Appearance Urine pH Ur Specific [place] Urine Protein Urine Glucose (UA) Urine Ketones Urine Blood Urine Nitrate Urine Bilirubin Urine Urobilinogen Ur Leukocyte Esterase Urine RBC Urine WBC Ur Epithelial Cells Urine Bacteria Urine Eosinophils Ur Random Creatinine U Random Total Protein Urine Opiates Screen Urine Methadone Screen Ur Barbiturates Screen Ur Phencyclidine Scrn Ur Amphetamines Screen U Benzodiazepines Scrn U Oth Cocaine Metabols U Cannabinoids Screen Complement C3 101.0 Complement C4 42.3 08/19/17 08/19/17 08/19/17 16:15 21:04 21:04 WBC RBC Hgb Hct MCV MCH MCHC RDW Plt Count MPV Sodium Potassium Chloride Carbon Dioxide Anion Gap BUN Creatinine Est GFR ( Amer) Est GFR (Non-Af Amer) POC Glucose (mg/dL) 82 Random Glucose Calcium Iron TIBC % Saturation Total Bilirubin AST ALT Alkaline Phosphatase Lactate Dehydrogenase Total Creatine Kinase Troponin I Total Protein Albumin Globulin Albumin/Globulin Ratio Urine Color Urine Appearance Urine pH Ur Specific [place] Urine Protein Urine Glucose (UA) Urine Ketones Urine Blood Urine Nitrate Urine Bilirubin Urine Urobilinogen Ur Leukocyte Esterase Urine RBC Urine WBC Ur Epithelial Cells Urine Bacteria Urine Eosinophils Ur Random Creatinine 211 U Random Total Protein 35 Urine Opiates Screen Negative Urine Methadone Screen Negative Ur Barbiturates Screen Negative Ur Phencyclidine Scrn Negative Ur Amphetamines Screen Negative U Benzodiazepines Scrn Negative U Oth Cocaine Metabols Negative U Cannabinoids Screen Negative Complement C3 Complement C4 08/19/17 08/19/17 08/19/17 21:04 21:04 21:15 WBC RBC Hgb Hct MCV MCH MCHC RDW Plt Count MPV Sodium Potassium Chloride Carbon Dioxide Anion Gap BUN Creatinine Est GFR ( Amer) Est GFR (Non-Af Amer) POC Glucose (mg/dL) Random Glucose Calcium Iron TIBC % Saturation Total Bilirubin AST ALT Alkaline Phosphatase Lactate Dehydrogenase 397 Total Creatine Kinase 39 Troponin I < 0.01 Total Protein Albumin Globulin Albumin/Globulin Ratio Urine Color Yellow Urine Appearance Sl cloudy Urine pH 5.5 Ur Specific [place] 1.025 Urine Protein 30 H Urine Glucose (UA) Negative Urine Ketones Negative Urine Blood Trace-intact H Urine Nitrate Negative Urine Bilirubin Small H Urine Urobilinogen 0.2 Ur Leukocyte Esterase Negative Urine RBC 1 - 3 Urine WBC 1 - 3 Ur Epithelial Cells 0 - 2 Urine Bacteria Mod Urine Eosinophils Negative Ur Random Creatinine U Random Total Protein Urine Opiates Screen Urine Methadone Screen Ur Barbiturates Screen Ur Phencyclidine Scrn Ur Amphetamines Screen U Benzodiazepines Scrn U Oth Cocaine Metabols U Cannabinoids Screen Complement C3 Complement C4 08/19/17 08/20/17 08/20/17 22:27 06:05 06:05 WBC 5.4 D RBC 3.28 L Hgb 10.2 L Hct 29.1 L MCV 88.7 MCH 31.1 MCHC 35.1 RDW 13.8 Plt Count 187 MPV 10.8 Sodium 142 Potassium 3.9 Chloride 104 Carbon Dioxide 26 Anion Gap 17 BUN 43 H Creatinine 7.1 H Est GFR ( Amer) 9 Est GFR (Non-Af Amer) 8 POC Glucose (mg/dL) 158 H Random Glucose 92 Calcium 8.6 Iron TIBC % Saturation Total Bilirubin 0.4 AST 17 D ALT 23 Alkaline Phosphatase 58 Lactate Dehydrogenase Total Creatine Kinase 32 L Troponin I Total Protein 6.0 Albumin 3.2 Globulin 2.9 Albumin/Globulin Ratio 1.1 Urine Color Urine Appearance Urine pH Ur Specific [place] Urine Protein Urine Glucose (UA) Urine Ketones Urine Blood Urine Nitrate Urine Bilirubin Urine Urobilinogen Ur Leukocyte Esterase Urine RBC Urine WBC Ur Epithelial Cells Urine Bacteria Urine Eosinophils Ur Random Creatinine U Random Total Protein Urine Opiates Screen Urine Methadone Screen Ur Barbiturates Screen Ur Phencyclidine Scrn Ur Amphetamines Screen U Benzodiazepines Scrn U Oth Cocaine Metabols U Cannabinoids Screen Complement C3 Complement C4 08/20/17 06:05 WBC RBC Hgb Hct MCV MCH MCHC RDW Plt Count MPV Sodium Potassium Chloride Carbon Dioxide Anion Gap BUN Creatinine Est GFR ( Amer) Est GFR (Non-Af Amer) POC Glucose (mg/dL) Random Glucose Calcium Iron 87 TIBC 239 L % Saturation 36 Total Bilirubin AST ALT Alkaline Phosphatase Lactate Dehydrogenase Total Creatine Kinase Troponin I Total Protein Albumin Globulin Albumin/Globulin Ratio Urine Color Urine Appearance Urine pH Ur Specific [place] Urine Protein Urine Glucose (UA) Urine Ketones Urine Blood Urine Nitrate Urine Bilirubin Urine Urobilinogen Ur Leukocyte Esterase Urine RBC Urine WBC Ur Epithelial Cells Urine Bacteria Urine Eosinophils Ur Random Creatinine U Random Total Protein Urine Opiates Screen Urine Methadone Screen Ur Barbiturates Screen Ur Phencyclidine Scrn Ur Amphetamines Screen U Benzodiazepines Scrn U Oth Cocaine Metabols U Cannabinoids Screen Complement C3 Complement C4 Assessment & Plan - Assessment and Plan (Free Text) Assessment: ASSESSMENT: Abdominal Pain, mainly epigastric Weight Loss Diarrhea Cholelithiasis Chronic Gastritis CKD CML (Chronic Myloid Leukemia) PLAN: continue PPI NPO , continue IVF Zofran for nausea May benefit from colonoscopy for weight loss consider repeat ct scan with oral contrast , last ct scan was done with no oral contrast Thank you for this consult and for allowing us to participate in your patient's care, further recommendations based upon clinical course. Seen and discussed with Dr. Phipps. <Danie Phipps V - Last Filed: 08/21/17 06:25> Meds - Medications Medications: Current Medications Acetaminophen (Tylenol 325mg Tab) 650 mg PO Q6H PRN PRN Reason: Pain, Mild (1-3) Hydromorphone HCl (Dilaudid) 0.5 mg IVP Q6H PRN PRN Reason: Pain, severe (8-10) Last Admin: 08/20/17 21:30 Dose: 0.5 mg Sodium Chloride (Sodium Chloride 0.9%) 1,000 mls @ 125 mls/hr IV .Q8H [facility] Last Admin: 08/20/17 18:29 Dose: 125 mls/hr Metoclopramide HCl (Reglan) 5 mg PO 0600,1130,1630,2200 [facility] Last Admin: 08/21/17 05:45 Dose: 5 mg Ondansetron HCl (Zofran Inj) 4 mg IVP Q6H PRN PRN Reason: Nausea/Vomiting Last Admin: 08/20/17 09:14 Dose: 4 mg Oxycodone HCl (Oxycodone Immediate Release Tab) 5 mg PO Q6H [facility] Last Admin: 08/21/17 05:42 Dose: Not Given Pantoprazole Sodium (Protonix Inj) 40 mg IVP Q12 [facility] Last Admin: 08/20/17 21:29 Dose: 40 mg Results - Vital Signs Recent Vital Signs: Last Vital Signs Temp 98.4 F 08/20/17 18:00 Pulse 76 08/20/17 18:00 Resp 18 08/20/17 18:00 BP 140/72 08/20/17 18:00 Pulse Ox 99 08/20/17 18:00 - Labs Result Diagrams: 08/20/17 06:05 08/20/17 06:05 Labs: Laboratory Results - last 24 hr 08/19/17 08/20/17 08/20/17 07:30 06:05 06:05 WBC 5.4 D RBC 3.28 L Hgb 10.2 L Hct 29.1 L MCV 88.7 MCH 31.1 MCHC 35.1 RDW 13.8 Plt Count 187 MPV 10.8 Sodium 142 Potassium 3.9 Chloride 104 Carbon Dioxide 26 Anion Gap 17 BUN 43 H Creatinine 7.1 H Est GFR ( Amer) 9 Est GFR (Non-Af Amer) 8 POC Glucose (mg/dL) Random Glucose 92 Calcium 8.6 Iron TIBC % Saturation Ferritin 200.0 Total Bilirubin 0.4 AST 17 D ALT 23 Alkaline Phosphatase 58 Total Creatine Kinase 32 L Total Protein 6.0 Total Protein (PEP) Albumin 3.2 Globulin 2.9 Albumin/Globulin Ratio 1.1 PTH Intact Whole Molec 77 H 08/20/17 08/20/17 08/20/17 06:05 06:05 07:09 WBC RBC Hgb Hct MCV MCH MCHC RDW Plt Count MPV Sodium Potassium Chloride Carbon Dioxide Anion Gap BUN Creatinine Est GFR ( Amer) Est GFR (Non-Af Amer) POC Glucose (mg/dL) 85 Random Glucose Calcium Iron 87 TIBC 239 L % Saturation 36 Ferritin Total Bilirubin AST ALT Alkaline Phosphatase Total Creatine Kinase Total Protein Total Protein (PEP) 5.7 L Albumin Globulin Albumin/Globulin Ratio PTH Intact Whole Molec 08/20/17 08/20/17 08/20/17 11:18 16:07 21:32 WBC RBC Hgb Hct MCV MCH MCHC RDW Plt Count MPV Sodium Potassium Chloride Carbon Dioxide Anion Gap BUN Creatinine Est GFR ( Amer) Est GFR (Non-Af Amer) POC Glucose (mg/dL) 81 91 100 Random Glucose Calcium Iron TIBC % Saturation Ferritin Total Bilirubin AST ALT Alkaline Phosphatase Total Creatine Kinase Total Protein Total Protein (PEP) Albumin Globulin Albumin/Globulin Ratio PTH Intact Whole Molec Attending/Attestation - Attestation I have personally seen and examined this patient.: Yes I have fully participated in the care of the patient.: Yes I have reviewed all pertinent clinical information: Yes Notes (Text): This is an addendum to GI consult report dictated by Linda Chavarria APN.The patient was seen and examined earlier. Medical records, lab studies, imagings were reviewed. Last 24 hours events reviewed. Agreed with the above treatment plan as outlined in Linda Chavarria APN's notes the with the addition of the following 08/21/17 06:24
[2017-08-21] MEDS: oxyCODONE 5 mg Immediate Release Tab PO SCH ×4 (05:42→21:26)
[2017-08-21] MEDS ORDERED: Sodium Chloride 0.9% 1,000 ML IV SCH (08:00)
[2017-08-21 09:38] LABS: CALCIUM 8.8 mg/dL (8.4-10.5)
--- NOTE | 2017-08-21 11:18 | CP.PCM.PN ---
<Ira Mc - Last Filed: 08/21/17 15:32> Subjective - Date & Time of Evaluation Date of Evaluation: 08/21/17 Time of Evaluation: 08:00 - Subjective Subjective: GI Progress Note for Navya Carreon PGY2 Patient seen and examined at bedside. There were no acute overnight events as per nursing staff. Patient reports not feeling hungry and has some epigastric pain. He denies nausea/vomiting/diarrhea, fever or chills, chest pain or shortness of breath. Objective - Vital Signs/Intake and Output Vital Signs (last 24 hours): Temp Pulse Resp BP Pulse Ox 97.9 F 80 20 140/80 100 08/21/17 06:00 08/21/17 06:00 08/21/17 06:00 08/21/17 06:00 08/21/17 06:00 Intake and Output: 08/21/17 08/21/17 06:59 18:59 Intake Total 840 Output Total 900 Balance -60 - Medications Medications: Current Medications Acetaminophen (Tylenol 325mg Tab) 650 mg PO Q6H PRN PRN Reason: Pain, Mild (1-3) Hydromorphone HCl (Dilaudid) 0.5 mg IVP Q6H PRN PRN Reason: Pain, severe (8-10) Last Admin: 08/20/17 21:30 Dose: 0.5 mg Sodium Chloride (Sodium Chloride 0.9%) 1,000 mls @ 50 mls/hr IV .Q20H [facility] Last Admin: 08/21/17 10:05 Dose: 50 mls/hr Ondansetron HCl (Zofran Inj) 4 mg IVP Q6H PRN PRN Reason: Nausea/Vomiting Last Admin: 08/20/17 09:14 Dose: 4 mg Oxycodone HCl (Oxycodone Immediate Release Tab) 5 mg PO Q6H [facility] Last Admin: 08/21/17 05:42 Dose: Not Given Pantoprazole Sodium (Protonix Inj) 40 mg IVP Q12 [facility] Last Admin: 08/21/17 10:05 Dose: 40 mg - Labs Labs: 08/20/17 06:05 08/21/17 09:20 PT 11.1 SECONDS (9.4-12.5) 06/05/18 07:30 INR 0.97 (0.93-1.08) 08/19/17 07:30 APTT 25.5 Seconds (25.1-36.5) 08/19/17 07:30 - Constitutional Appears: No Acute Distress - Head Exam Head Exam: ATRAUMATIC, NORMAL INSPECTION, NORMOCEPHALIC - ENT Exam Additional comments: poor dentition - Respiratory Exam Respiratory Exam: Clear to Ausculation Bilateral, NORMAL BREATHING PATTERN. absent: Rales, Rhonchi, Wheezes - Cardiovascular Exam Cardiovascular Exam: REGULAR RHYTHM, +S1, +S2. absent: Gallop, Rubs, Murmur - GI/Abdominal Exam GI & Abdominal Exam: Soft, Tenderness (epigastric ), Normal Bowel Sounds. absent: Rigid, Mass, Rebound - Extremities Exam Extremities Exam: Pedal Edema - Neurological Exam Neurological Exam: Alert, Awake, CN II-XII Intact, Oriented x3 Assessment and Plan - Assessment and Plan (Free Text) Assessment: This is a 66yo male with a past medical history of CAD with stents, DVT, DM, CKD and CML who was admitted for 1. Epigastric pain (can be secondary to gastroenteritis gastroparesis with poor dentition) 2. Cholelithiasis (no evidence of cholecystitis) 3. Chronic gastritis 4. LESIA on CKD (pre-renal) 5. CML Plan: Patient has poor dentition will does not allow him to digest food properly along with diabetic gastroparesis. This can cause his chronic gastritis and abdominal pain. Imaging reviewed. HIDA negative. Unlikely pain is from cholecystitis. Zofran prn nausea. Will advance patient to puree diet. Continue PPI. Continue to monitor blood glucose. LESIA is improving. Continue IV fluids. case seen, discussed and reviewed with Dr. Phipps. Navya Mc PGY2 <Danie Phipps V - Last Filed: 08/23/17 00:37> Objective - Vital Signs/Intake and Output Vital Signs (last 24 hours): Temp Pulse Resp BP Pulse Ox 97.3 F L 74 20 130/79 96 08/22/17 06:00 08/22/17 06:00 08/22/17 06:00 08/22/17 06:00 08/22/17 06:00 - Labs Labs: 08/22/17 06:30 08/22/17 06:30 PT 11.1 SECONDS (9.4-12.5) 08/19/17 07:30 INR 0.97 (0.93-1.08) 08/19/17 07:30 APTT 25.5 Seconds (25.1-36.5) 08/19/17 07:30
[2017-08-21 12:57] LABS: ALBUMIN (PEP) 3.2 g/dL (3.8-4.8); ALPHA-1-GLOBULIN (PEP) 0.3 g/dL (0.2-0.3)
--- NOTE | 2017-08-21 13:34 | PN ---
DATE: 08/21/2017 SUBJECTIVE: The patient has no complaints of any chest pain, no shortness of breath, no headaches. He says he is feeling better this morning. PHYSICAL EXAMINATION VITAL SIGNS: Temperature is 97.9, pulse of 80, blood pressure is 140/80, respirations 20. GENERAL: The patient is lying in bed, flat, comfortable. HEENT: No oral lesion. Anicteric sclerae. Moist mucosa. NECK: No JVD, adenopathy, or thyromegaly. CARDIOVASCULAR: S1 and S2, regular. No murmurs, rubs, or gallops. LUNGS: Clear to auscultation bilaterally. No wheeze, rales, or rhonchi. ABDOMEN: Bowel sounds are positive, soft, nontender and nondistended. EXTREMITIES: No cyanosis, clubbing or edema. LABORATORY DATA: Labs are pending. ASSESSMENT: 1. Acute kidney injury. 2. Abdominal pain, improved. 3. Diabetes type 2. 4. Hypertension. 5. Cholelithiasis. 6. Coronary artery disease with stent. 7. Chronic myeloid leukemia. PLAN: The patient is currently comfortable. He is being followed by GI. I appreciate their input. I did review the notes from GI. The patient is on oxycodone for pain. I will renew his pain medications. The patient is on Protonix daily. He is on metoclopramide. I will discontinue the patient's metoclopramide. The patient's fluids have been decreased to 50 mL an hour. He remains n.p.o. Clinically, he is improving. Asif Welch MD
[2017-08-21 14:45] LABS: ALBUMIN 34.6 Relative %; ALPHA-1 GLOBULIN 13.1 Relative %
--- NOTE | 2017-08-21 15:23 | PN ---
DATE: 08/21/2017 SUBJECTIVE: Emeka Handy is seen on the floor. The workup for his renal insufficiency is ongoing. At some point, when this is explored and/or resolved, I would electively remove the gallbladder for him. However, at this time, I think the risk is higher than the benefits. Ralph Tyson MD
--- NOTE | 2017-08-22 02:13 | CP.PCM.CON ---
History of Present Illness - History of Present Illness History of Present Illness: Mr. Handy is a 66 year old male with CML. He is in complete molecular remission. On Gleevec 400 mg alternate days due to history of recent acute renal failure. He was fully recovered from renal failure until this admission. He was admitted with acute renal failure , nausea, vomiting. He is also loosing weight gradually. CT chest, abdomen, pelvis unremarkable. denies pain. He has chronic right leg cellulitis. Review of Systems - Constitutional Constitutional: As Per HPI - EENT Eyes: absent: As Per HPI, Blind Spots, Blurred Vision, Change in Vision, Decreased Night Vision, Diplopia, Discharge, Dry Eye, Exophthalmos, Floaters, Irritation, Itchy Eyes, Loss of Peripheral Vision, Pain, Photophobia, Requires Corrective Lenses, Sees Flashes, Spots in Vision, Tunnel Vision, Other Visual Disturbances, Loss of Vision, Other Ears: absent: As Per HPI, Decreased Hearing, Ear Discharge, Ear Pain, Tinnitus, Abnormal Hearing, Disequilibrium, Dizziness, Other Nose/Mouth/Throat: absent: As Per HPI, Epistaxis, Nasal Congestion, Nasal Discharge, Nasal Obstruction, Nasal Trauma, Nose Pain, Post Nasal Drip, Sinus Pain, Sinus Pressure, Bleeding Gums, Change in Voice, Dental Pain, Dry Mouth, Dysphagia, Halitosis, Hoarsness, Lip Swelling, Mouth Lesions, Mouth Pain, Odynophagia, Sore Throat, Throat Swelling, Tongue Swelling, Facial Pain, Neck Pain, Neck Mass, Other - Cardiovascular Cardiovascular: absent: As Per HPI, Acrocyanosis, Chest Pain, Chest Pain at Rest , Chest Pain with Activity, Claudication, Diaphoresis, Dyspnea, Dyspnea on Exertion, Edema, Irregular Heart Rhythm, Pain Radiating to Arm/Neck/Jaw, Leg Edema, Leg Ulcers, Lightheadedness, Orthopnea, Palpitations, Paroxysmal Nocturnal Dyspnea, Pedal Edema, Radiating Pain, Rapid Heart Rate, Slow Heart Rate, Syncope, Other - Respiratory Respiratory: absent: As Per HPI, Cough, Dyspnea, Hemoptysis, Dyspnea on Exertion , Wheezing, Snoring, Stridor, Pain on Inspiration, Chest Congestion, Excessive Mucous Production, Change in Mucous Color, Pain with Coughing, Other - Gastrointestinal Gastrointestinal: As Per HPI - Genitourinary Genitourinary: absent: As Per HPI, Change in Urinary Stream, Difficulty Urinating, Dysuria, Flank Pain, Hematuria, Pyuria, Nocturia, Urinary Incontinence, Urinary Frequency, Urinary Hesitance, Urinary Urgency, Voiding Freq/Small Amts, Freq UTI, Hx Renal/Bladder Calculi, Hx /Renal Surgery, Bladder Distension, Other - Musculoskeletal Musculoskeletal: absent: As Per HPI, Abnormal Gait, Arthralgias, Atrophy, Back Pain, Deformity, Joint Swelling, Limited Range of Motion, Loss of Height, Muscle Cramps, Muscle Weakness, Myalgias, Neck Pain, Numbness, Radiating Pain into Limb, Stiffness, Tingling, Other - Integumentary Integumentary: absent: As Per HPI, Acne, Alopecia, Bleeding Lesions, Change in Hair, Change in Nails, Change in Pigmentation, Changing Lesions, Dry Skin, Erythema, Furuncle, Hirsutism, Lesions, New Lesions, Non-Healing Lesions, Photosensitivity, Pruritus, Rash, Skin Pain, Skin Ulcer, Sores, Striae, Swelling , Unusual Bruising, Wounds, Jaundice, Other - Neurological Neurological: absent: As Per HPI, Abnormal Gait, Abnormal Hearing, Abnormal Movements, Abnormal Speech, Behavioral Changes, Burning Sensations, Confusion, Convulsions, Disequilibrium, Dizziness, Numbness, Focal Weakness, Frequent Falls , Headaches, Lack of Coordination, Loss of Vision, Memory Loss, Paresthesias, Radicular Pain, Restless Legs, Sensory Deficit, Syncope, Tingling, Tremor, Vertigo, Weakness, Other Visual Disturbances, Other - Psychiatric Psychiatric: absent: As Per HPI, Abnormal Sleep Pattern, Anhedonia, Anxiety, Auditory Hallucinations, Behavioral Changes, Change in Appetite, Change in Libido, Confusion, Depression, Difficulty Concentrating, Hallucinations, Homicidal Ideation, Hopelessness, Irritability, Memory Loss, Mood Swings, Panic Attacks, Paranoia, Suicidal Ideation, Visual Hallucinations, Tactile Hallucinations, Other - Endocrine Endocrine: absent: As Per HPI, Change in Body Appearance, Change in Libido, Cold Intolorance, Deepening of Voice, Excessive Sweating, Fatigue, Flushing, Heat Intolorance, Increase in Ring/Shoe/Hat Size, Palpitations, Polydipsia, Polyphagia, Polyuria, Other - Hematologic/Lymphatic Hematologic: As Per HPI Past Patient History - Infectious Disease Hx of Infectious Diseases: None - Tetanus Immunizations Tetanus Immunization: Unknown - Past Medical History & Family History Past Medical History?: Yes Past Family History: Reviewed and not pertinent - Past Social History Smoking Status: Light Smoker < 10 Cigarettes Daily - CARDIAC Hx Cardiac Disorders: Yes Hx Circulatory Problems: Yes Hx Hypercholesterolemia: Yes Hx Hypertension: Yes Hx Peripheral Vascular Disease: Yes - PULMONARY Hx Respiratory Disorders: Yes Hx Pneumonia: Yes (1995) Other/Comment: smoker / Lobectomy - NEUROLOGICAL Hx Neurological Disorder: No - HEENT Hx HEENT Problems: No - RENAL Hx Chronic Kidney Disease: No - ENDOCRINE/METABOLIC Hx Endocrine Disorders: Yes Hx Diabetes Mellitus Type 2: Yes (metformin) - HEMATOLOGICAL/ONCOLOGICAL Hx Blood Disorders: Yes Hx Anemia: No Hx Cancer: Yes (leukemia) - INTEGUMENTARY Hx Dermatological Problems: No - MUSCULOSKELETAL/RHEUMATOLOGICAL Hx Falls: No - GASTROINTESTINAL Hx Gastrointestinal Disorders: Yes Hx Gall Bladder Disease: Yes (cholelithiasis) Hx Gastroesophageal Reflux: Yes - GENITOURINARY/GYNECOLOGICAL Hx Genitourinary Disorders: No - PSYCHIATRIC Hx Substance Use: No - SURGICAL HISTORY Hx Surgeries: Yes (tonsillectomy) Hx Appendectomy: Yes Hx Cardiac Catheterization: Yes Hx Coronary Stent: Yes (x1) Other/Comment: LOWER LEFT LOBECTOMY - ANESTHESIA Hx Anesthesia Reactions: No Hx Malignant Hyperthermia: No Meds Allergies/Adverse Reactions: Allergies Allergy/AdvReac Type Severity Reaction Status Date / Time No Known Allergies Allergy Verified 08/18/17 23:04 - Medications Medications: Current Medications Acetaminophen (Tylenol 325mg Tab) 650 mg PO Q6H PRN PRN Reason: Pain, Mild (1-3) Hydromorphone HCl (Dilaudid) 0.5 mg IVP Q6H PRN PRN Reason: Pain, severe (8-10) Last Admin: 08/20/17 21:30 Dose: 0.5 mg Sodium Chloride (Sodium Chloride 0.9%) 1,000 mls @ 50 mls/hr IV .Q20H SPENCER Last Admin: 08/21/17 10:05 Dose: 50 mls/hr Ondansetron HCl (Zofran Inj) 4 mg IVP Q6H PRN PRN Reason: Nausea/Vomiting Last Admin: 08/22/17 00:29 Dose: 4 mg Oxycodone HCl (Oxycodone Immediate Release Tab) 5 mg PO Q6H SPENCER Last Admin: 08/21/17 21:26 Dose: 5 mg Pantoprazole Sodium (Protonix Inj) 40 mg IVP Q12 SPENCER Last Admin: 08/21/17 21:25 Dose: 40 mg Physical Exam - Constitutional Appears: Chronically Ill - Head Exam Head Exam: ATRAUMATIC, NORMAL INSPECTION, NORMOCEPHALIC - Eye Exam Eye Exam: Normal appearance - ENT Exam ENT Exam: Mucous Membranes Moist, Normal Exam - Neck Exam Neck exam: Positive for: Normal Inspection - Respiratory Exam Respiratory Exam: Clear to Auscultation Bilateral, NORMAL BREATHING PATTERN - Cardiovascular Exam Cardiovascular Exam: REGULAR RHYTHM, +S1, +S2 - GI/Abdominal Exam GI & Abdominal Exam: Normal Bowel Sounds - Extremities Exam Extremities exam: Positive for: normal inspection - Back Exam Back exam: NORMAL INSPECTION - Skin Skin Exam: Normal Color, Warm Results - Vital Signs Recent Vital Signs: Last Vital Signs Temp 97.9 F 08/21/17 18:00 Pulse 94 H 08/21/17 18:00 Resp 19 08/21/17 18:00 BP 141/81 08/21/17 18:00 Pulse Ox 99 08/21/17 18:00 - Labs Result Diagrams: 08/20/17 06:05 08/21/17 09:20 Labs: Laboratory Results - last 24 hr 08/19/17 08/20/17 08/20/17 21:04 06:00 06:05 Sodium Potassium Chloride Carbon Dioxide Anion Gap BUN Creatinine Est GFR ( Amer) Est GFR (Non-Af Amer) POC Glucose (mg/dL) Random Glucose Calcium Total Protein (PEP) 5.7 L Albumin (PEP) 3.2 L Albumin/Globulin Ratio 0.53 Xqjak-5-Ortiftxuc 13.1 0.3 Qdtrc-4-Rtaoxybzy 16.9 0.8 Beta Globulins 15.1 Chki-5-Alfifvgh 0.3 L Cmzf-9-Lsqzinlu 0.3 Gamma Globulins 20.3 0.9 Abnorm Protein Band 1 TEST NOT PERFORMED Abnorm Protein Band 2 TEST NOT PERFORMED Abnorm Protein Band 3 TEST NOT PERFORMED Urine Albumin (PEP) 34.6 Ur Protein Fractions See note MONSTER & SPEP Interp See note HIV 1&2 Ag/Ab, 4th Gen Nonreactive 08/21/17 08/21/17 08/21/17 07:19 09:20 11:20 Sodium 144 Potassium 3.7 Chloride 107 Carbon Dioxide 24 Anion Gap 16 BUN 32 H Creatinine 5.2 H Est GFR ( Amer) 14 Est GFR (Non-Af Amer) 11 POC Glucose (mg/dL) 83 85 Random Glucose 96 Calcium 8.8 Total Protein (PEP) Albumin (PEP) Albumin/Globulin Ratio Ztqlg-4-Qgxqjfnwa Ldeij-9-Gynnvdidf Beta Globulins Fehs-3-Feykkiwr Qimb-4-Ucltecpe Gamma Globulins Abnorm Protein Band 1 Abnorm Protein Band 2 Abnorm Protein Band 3 Urine Albumin (PEP) Ur Protein Fractions MONSTER & SPEP Interp HIV 1&2 Ag/Ab, 4th Gen 08/21/17 08/21/17 16:20 21:02 Sodium Potassium Chloride Carbon Dioxide Anion Gap BUN Creatinine Est GFR ( Amer) Est GFR (Non-Af Amer) POC Glucose (mg/dL) 125 H 84 Random Glucose Calcium Total Protein (PEP) Albumin (PEP) Albumin/Globulin Ratio Bvxla-8-Mfwjvdunn Gjsxk-6-Rgbohuqsi Beta Globulins Vkwi-8-Zcewhznr Hqpz-4-Hgdudoaw Gamma Globulins Abnorm Protein Band 1 Abnorm Protein Band 2 Abnorm Protein Band 3 Urine Albumin (PEP) Ur Protein Fractions MONSTER & SPEP Interp HIV 1&2 Ag/Ab, 4th Gen Assessment & Plan - Assessment and Plan (Free Text) Assessment: 1. CML : in remission. Hold gleevec for acute renal failure. Gleevec will be restarted gradually upon recovery from renal failure. 2. ARF : etiology uncertain. DR. Welch following. 3. Anemia : related to CKD, aranesp 100 mcgm SQ today. 4. nausea : likely due to ARF. GI following. Thank You DR. Welch for allowing us to participate in his care. - Date & Time Date: 08/21/17 Time: 09:00
[2017-08-22 07:05] LABS: HEMOGLOBIN 9.9 g/dL (14.0-18.0); MEAN CELL VOLUME 90.2 fl (80.0-105.0); MEAN CORPUSCULAR HEMOGLOBIN 31.4 pg (25.0-35.0); MEAN CORPUSCULAR HGB CONC 34.9 g/dl (31.0-37.0); MEAN PLATELET VOLUME 10.6 fl (7.0-11.0); RBC 3.15 10^6/uL (3.5-6.1); RED CELL DISTRIBUTION WIDTH 13.9 % (11.5-14.5); WHITE BLOOD COUNT 5.1 10^3/ul (4.5-11.0)
[2017-08-22 07:32] VITALS: BP 130/79; PULSE 74; RESP 20; TEMP 97.3; O2SAT 96
[2017-08-22 07:47] LABS: ALB/GLOB RATIO 1.1 (1.1-1.8); CALCIUM 8.6 mg/dL (8.4-10.5)
--- NOTE | 2017-08-22 09:18 | PN ---
DATE: 08/22/2017 SUBJECTIVE: The patient is currently comfortable. He says he is feeling better. He is urinating more. He did have one episode of either vomiting mildly or coughing. He has no complaints of abdominal pain that has resolved as well. PHYSICAL EXAMINATION VITAL SIGNS: Temperature is 97.3, pulse is 74, blood pressure 130/79, respirations 20. GENERAL: The patient is lying in bed, flat, comfortable. HEENT: No oral lesion. Anicteric sclerae. Moist mucosa. NECK: No JVD, adenopathy, or thyromegaly. CARDIOVASCULAR: S1 and S2, regular. No murmurs, rubs, or gallops. LUNGS: Clear to auscultation bilaterally. No wheeze, rales, or rhonchi. ABDOMEN: Bowel sounds are positive, soft, nontender and nondistended. EXTREMITIES: No cyanosis, clubbing or edema. LABORATORY DATA: Creatinine is 3.7. ASSESSMENT: 1. Acute kidney injury secondary to prerenal azotemia, improving. 2. Abdominal pain, resolved. 3. Diabetes type 2. 4. Hypertension. 5. Cholelithiasis. 6. Coronary artery disease with stent. 7. Chronic myeloid leukemia. PLAN: The patient is currently comfortable. He is improving. He is going to have breakfast this morning. If he tolerates his breakfast and lunch, he should be able to go home today. The patient is on Percocet for pain. He is on Zofran as needed. He is being followed by Surgery. He is going to discontinue his Lasix at home. I did advise him about this. He will also hold his metformin until he comes into the office for evaluation. Asif Welch MD
[2017-08-22] MEDS ORDERED: Magnesium 2 gm/50 ml NS 2 GM/50 ML BAG IVPB ONE (10:07)
[2017-08-22] MEDS: oxyCODONE 5 mg Immediate Release Tab PO SCH (10:15)
--- NOTE | 2017-08-22 16:10 | CP.PCM.PN ---
<Linda Chavarria - Last Filed: 08/22/17 16:05> Subjective - Date & Time of Evaluation Date of Evaluation: 08/22/17 Time of Evaluation: 10:45 - Subjective Subjective: Seen and examined at the bedside earlier today, chart review. Had episode of vomiting earlier this morning before breakfast. Denies bilious or bloody vomit , noted some food particles from last night and as per patient. He does report decreased nausea and improvement of abdominal pain. No complaints of diarrhea. No acute overnight events reported. Objective - Vital Signs/Intake and Output Vital Signs (last 24 hours): Temp Pulse Resp BP Pulse Ox 97.3 F L 74 20 130/79 96 08/22/17 06:00 08/22/17 06:00 08/22/17 06:00 08/22/17 06:00 08/22/17 06:00 - Medications Medications: Current Medications Acetaminophen (Tylenol 325mg Tab) 650 mg PO Q6H PRN PRN Reason: Pain, Mild (1-3) Ondansetron HCl (Zofran Inj) 4 mg IVP Q6H PRN PRN Reason: Nausea/Vomiting Last Admin: 08/22/17 10:15 Dose: 4 mg Oxycodone HCl (Oxycodone Immediate Release Tab) 5 mg PO Q6H SPENCER Last Admin: 08/22/17 10:15 Dose: 5 mg - Labs Labs: 08/22/17 06:30 08/22/17 06:30 PT 11.1 SECONDS (9.4-12.5) 08/19/17 07:30 INR 0.97 (0.93-1.08) 08/19/17 07:30 APTT 25.5 Seconds (25.1-36.5) 08/19/17 07:30 - Constitutional Appears: No Acute Distress - Head Exam Head Exam: NORMOCEPHALIC - Eye Exam Eye Exam: Normal appearance. absent: Scleral icterus - ENT Exam ENT Exam: Mucous Membranes Moist - Neck Exam Neck Exam: Normal Inspection - Respiratory Exam Respiratory Exam: NORMAL BREATHING PATTERN. absent: Respiratory Distress - Cardiovascular Exam Cardiovascular Exam: +S1, +S2 - GI/Abdominal Exam GI & Abdominal Exam: Soft, Normal Bowel Sounds. absent: Distended, Guarding, Tenderness, Rebound - Extremities Exam Extremities Exam: absent: Calf Tenderness - Neurological Exam Neurological Exam: Alert, Awake, Oriented x3 Assessment and Plan - Assessment and Plan (Free Text) Assessment: Assessment: Epigastric pain may be secondary to gastroenteritis /gastroparesis with poor dentition) Cholelithiasis (no evidence of cholecystitis) Chronic gastritis LESIA on CKD CML CAD w/ stents DVT Plan: Continue Puree Diet Continue PPI Zofran when necessary nausea Discussed with patient regarding dentition and pured diet. Patient does report improvement of complaints. Also discussed with patient regarding elective outpatient colonoscopy, patient instructed to follow up in office. From a GI point of view patient may be discharged home as long as tolerating oral intake with no nausea /vomiting. Seen and discussed with Dr. Phipps. <Danie Phipps V - Last Filed: 08/23/17 00:34> Objective - Vital Signs/Intake and Output Vital Signs (last 24 hours): Temp Pulse Resp BP Pulse Ox 97.3 F L 74 20 130/79 96 08/22/17 06:00 08/22/17 06:00 08/22/17 06:00 08/22/17 06:00 08/22/17 06:00 - Labs Labs: 08/22/17 06:30 08/22/17 06:30 PT 11.1 SECONDS (9.4-12.5) 08/19/17 07:30 INR 0.97 (0.93-1.08) 08/19/17 07:30 APTT 25.5 Seconds (25.1-36.5) 08/19/17 07:30 Attending/Attestation - Attestation I have personally seen and examined this patient.: Yes I have fully participated in the care of the patient.: Yes I have reviewed all pertinent clinical information, including history, physical exam and plan: Yes Notes (Text): This is an addendum to GI progress report dictated by Linda Chavarria APN.The patient was seen and examined earlier. Medical records, lab studies, imagings were reviewed. Last 24 hours events reviewed. Agreed with the above treatment plan as outlined in Linda Chavarria APN's notes the with the addition of the following 08/23/17 00:33
[2017-08-24 03:30] LABS: ANCA SCREEN NEGATIVE (NEGATIVE)
== END 2017-08-22 18:50 | disposition home or self-care (01) | DRG 683 ==
LOC: ED 22:58 → ERH 08-19 02:32 → 3RSO 08-19 04:53
PROVIDERS: ADMIT Internal Medicine Nephrology; ATTEND Internal Medicine Nephrology
DX: N17.9 Acute kidney failure, unspecified (principal); C92.11 Chronic myeloid leukemia, BCR/ABL-positive, in remission; K56.7 Ileus, unspecified; L03.115 Cellulitis of right lower limb; K80.20 Calculus of gallbladder without cholecystitis without obstruction; D63.1 Anemia in chronic kidney disease; E11.22 Type 2 diabetes mellitus with diabetic chronic kidney disease; E11.43 Type 2 diabetes mellitus with diabetic autonomic (poly)neuropathy; E11.51 Type 2 diabetes mellitus with diabetic peripheral angiopathy without gangrene; E78.00 Pure hypercholesterolemia, unspecified; E78.5 Hyperlipidemia, unspecified; E86.0 Dehydration; F12.90 Cannabis use, unspecified, uncomplicated; G89.29 Other chronic pain; I12.9 Hypertensive chronic kidney disease with stage 1 through stage 4 chronic kidney disease, or unspecified chronic kidney disease; I25.10 Atherosclerotic heart disease of native coronary artery without angina pectoris; K21.9 Gastro-esophageal reflux disease without esophagitis; K29.50 Unspecified chronic gastritis without bleeding; K31.84 Gastroparesis; K52.9 Noninfective gastroenteritis and colitis, unspecified; N18.9 Chronic kidney disease, unspecified; Z79.82 Long term (current) use of aspirin; Z87.01 Personal history of pneumonia (recurrent); Z87.891 Personal history of nicotine dependence; Z90.49 Acquired absence of other specified parts of digestive tract; Z95.5 Presence of coronary angioplasty implant and graft; Z90.2 Acquired absence of lung [part of]

== ENCOUNTER 2018-07-15 11:35 | Emergency (ER) | payer MEDICARE, OTHER ==
[2018-07-15 11:48] VITALS: BMI 41.1
--- NOTE | 2018-07-15 12:27 | ED PDOC ---
Arrival/HPI - General Chief Complaint: Male Genitourinary Time Seen by Provider: 07/15/18 11:41 Historian: Patient - History of Present Illness Narrative History of Present Illness (Text): 07/15/18 12:30 67 year old M with pmh of gallstones, hypertension, hyperlipidemia, CML, and anemia presents with chief complaint of burning constant lower flank pain radiating to left lower abdomen for a couple days. Patient denies any urinary problems, dysuria or constipation. Last normal bowel movement last night. He denies taken any pain medications to relieve pain. He ambulates with cane at baseline. Patient denies any fevers, chills, headache, dizziness, chest pain, shortness of breath, dyspnea on exertion, cough, diaphoresis, nausea, vomiting, diarrhea, or any other complaint. Oncologist: Dr. Lanier Time/Duration: < week Symptom Onset: Sudden Symptom Course: Unchanged Activities at Onset: Light Context: Home Past Medical History - Provider Review Nursing Documentation Reviewed: Yes - Infectious Disease Hx of Infectious Diseases: None - Tetanus Immunization Tetanus Immunization: Unknown - Cardiac Hx Cardiac Disorders: Yes Hx Circulatory Problems: Yes Hx Hypertension: Yes Hx Peripheral Vascular Disease: Yes - Pulmonary Hx Respiratory Disorders: Yes Hx Pneumonia: Yes (1995) Other/Comment: smoker / Lobectomy - Neurological Hx Neurological Disorder: No - HEENT Hx HEENT Disorder: No - Renal Hx Renal Disorder: No - Endocrine/Metabolic Hx Endocrine Disorders: Yes Hx Diabetes Mellitus Type 2: Yes (metformin) - Hematological/Oncological Hx Blood Disorders: Yes Hx Anemia: No Hx Cancer: Yes (leukemia) - Integumentary Hx Dermatological Disorder: No - Musculoskeletal/Rheumatological Hx Falls: No - Gastrointestinal Hx Gastrointestinal Disorders: Yes Hx Gall Bladder Disease: Yes (cholelithiasis) Hx Gastroesophageal Reflux: Yes - Genitourinary/Gynecological Hx Genitourinary Disorders: No - Psychiatric Hx Psychophysiologic Disorder: No Hx Depression: No Hx Substance Use: No - Past Surgical History Past Surgical History: No Previous - Surgical History Hx Appendectomy: Yes Hx Cardiac Catheterization: Yes Hx Coronary Stent: Yes (x1) Other/Comment: LOWER LEFT LOBECTOMY - Anesthesia Hx Anesthesia: Yes Hx Anesthesia Reactions: No Hx Malignant Hyperthermia: No - Suicidal Assessment Feels Threatened In Home Enviroment: No Family/Social History - Physician Review Nursing Documentation Reviewed: Yes Family/Social History: Unknown Family HX Smoking Status: Light Smoker < 10 Cigarettes Daily Hx Alcohol Use: Yes (socailly) Hx Substance Use: No Hx Substance Use Treatment: No Allergies/Home Meds Allergies/Adverse Reactions: Allergies No Known Allergies Allergy (Verified 08/18/17 23:04) Home Medications: Home Meds Medication Instructions Recorded Confirmed Rosuvastatin Calcium [Crestor] 10 mg PO HS 12/02/13 08/18/17 Potassium Chloride [Klor-Con 10 meq PO DAILY 03/05/16 08/18/17 Sprinkle] Famotidine [Pepcid] 1 tab PO BID 04/17/17 08/18/17 Aspirin [Ecotrin] 81 mg PO DAILY 08/09/17 08/18/17 Review of Systems - Physician Review All systems were reviewed & negative as marked: Yes - Review of Systems Constitutional: absent: Fevers ENT: absent: Sore Throat, Rhinorrhea, Epistaxis Respiratory: absent: SOB, Cough, Wheezing Cardiovascular: absent: Chest Pain, Palpitations, JAY, Syncope Gastrointestinal: Abdominal Pain. absent: Stool Changes, Constipation, Diarrhea, Nausea, Vomiting, Appetite Changes, Hematochezia, Hematemesis Genitourinary Male: absent: Dysuria, Hematuria Musculoskeletal: Back Pain (flank pain). absent: Arthralgias, Neck Pain, Myalgias Skin: absent: Rash, Laceration, Abscess, Cellulitis Neurological: absent: Headache, Dizziness, Facial Droop Physical Exam Vital Signs Reviewed: Yes Vital Signs Temp Pulse Resp BP Pulse Ox 07/15/18 11:36 98.7 F 72 18 159/84 H 96 Temperature: Afebrile Blood Pressure: Hypertensive Pulse: Regular Respiratory Rate: Normal Appearance: Positive for: Well-Appearing, Non-Toxic, Comfortable Pain Distress: Mild Mental Status: Positive for: Alert and Oriented X 3 - Systems Exam Head: Present: Atraumatic, Normocephalic Pupils: Present: PERRL Extroacular Muscles: Present: EOMI Conjunctiva: Present: Normal Mouth: Present: Moist Mucous Membranes Neck: Present: Normal Range of Motion Respiratory/Chest: Present: Clear to Auscultation, Good Air Exchange. No: Respiratory Distress, Accessory Muscle Use Cardiovascular: Present: Regular Rate and Rhythm, Normal S1, S2. No: Murmurs Abdomen: Present: Tenderness (left lower). No: Distention, Peritoneal Signs, Rebound, Guarding Back: Present: Other (lower left flank). No: Midline Tenderness, Paraspinal Tenderness Upper Extremity: Present: Normal Inspection. No: Cyanosis, Edema Lower Extremity: Present: Edema (chronic b/l edema, right greater than left) Neurological: Present: GCS=15, CN II-XII Intact, Speech Normal Skin: Present: Warm, Dry, Normal Color. No: Rashes Psychiatric: Present: Alert, Oriented x 3, Normal Insight, Normal Concentration Medical Decision Making ED Course and Treatment: 07/15/18 12:10 Impression: 67 year old M presents with chief complaint of burning constant lower flank pain radiating to left lower abdomen for a couple days. Patient denies any urinary problems, dysuria or constipation. Last normal bowel movement last night. He denies taken any pain medications to relieve pain. He ambulates with cane at baseline Plan: -- CT Abd/Pelvis w/o contrast -- Labs -- Urinalysis -- Reassess and disposition Prior Visits: Notes and results from previous visits were reviewed. Progress Notes: 07/15/18 13:46 Cr. 1.7 (3.7 08/22/17), Hbg 10.4, remainder of labs unremarkable. Results d/w patient. UA, CT abd/pelvis and dispo pending. Patient signed out to Dr. Patel. - Scribe Statement The provider has reviewed the documentation as recorded by the Serafin Dent All medical record entries made by the Scribe were at my direction and personally dictated by me. I have reviewed the chart and agree that the record accurately reflects my personal performance of the history, physical exam, medical decision making, and the department course for this patient. I have also personally directed, reviewed, and agree with the discharge instructions and disposition. Disposition/Present on Arrival - Present on Arrival Any Indicators Present on Arrival: Yes History of DVT/PE: Yes History of Uncontrolled Diabetes: No Urinary Catheter: No History of Decub. Ulcer: No History Surgical Site Infection Following: None - Disposition Have Diagnosis and Disposition been Completed?: No Diagnosis: Left flank pain Disposition Time: 13:43 Patient Problems: Current Active Problems Problem Status Onset Left flank pain Acute Condition: STABLE Referrals: Rubi Lanier MD [Primary Care Provider] - Follow up with primary Forms: [employer] ([place]) Physician Patient Turnover - . Patient Signed Over To: Vero Patel (pending ua, ct, reassessment and dispo)
[2018-07-15] MEDS ORDERED: Sodium Chloride 0.9% 1,000 ML IV STA (12:28)
[2018-07-15 13:12] LABS: BASO # 0.03 K/mm3 (0.0-2.0); BASO % 0.5 % (0.0-3.0); EOS # 0.3 (0.0-0.7); EOS % 5.8 % (1.5-5.0); HEMOGLOBIN 10.4 g/dL (14.0-18.0); LYMPH # 0.7 (1.2-3.4); LYMPH % 12.8 % (22.0-35.0); MEAN CELL VOLUME 98.1 fl (80.0-105.0); MEAN CORPUSCULAR HEMOGLOBIN 32.4 pg (25.0-35.0); MEAN PLATELET VOLUME 10.2 fl (7.0-11.0); MONO # 0.5 (0.1-0.6); MONO % 9.4 % (1.0-6.0); RBC 3.21 10^6/uL (3.5-6.1); RED CELL DISTRIBUTION WIDTH 14.2 % (11.5-14.5); WHITE BLOOD COUNT 5.5 10^3/uL (4.5-11.0)
[2018-07-15 13:17] LABS: ALB/GLOB RATIO 1.1 (1.1-1.8); ALBUMIN 3.7 g/dL (3.0-4.8); CALCIUM 8.6 mg/dL (8.4-10.5)
[2018-07-15] MEDS ORDERED: Morphine 4 mg/ml ISec IVP STA (13:39)
--- NOTE | 2018-07-15 13:45 | ED PDOC ---
Physical Exam Vital Signs Temp Pulse Resp BP Pulse Ox 07/15/18 13:36 98.6 F 58 L 14 182/71 H 99 07/15/18 11:36 98.7 F 72 18 159/84 H 96 Medical Decision Making ED Course and Treatment: 07/15/18 13:44 Patient endorsed to me by Dr. Ballard. Pending CT and Urinalysis. 07/15/18 15:[address] without contrast: Dictator : Ricardo Dawson MD IMPRESSION: No evidence of hydronephrosis. No evidence of urolithiasis. No acute intra- abdominal findings. Urinalysis revealed no UTI. Results discussed with patient, will discharge home at this time. Advised over the counter pain medications, remaining hydrated, and following up with PMD. Return to the emergency department for any new or worsening symptoms. 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 - Medication Orders Current Medication Orders: Discontinued Medications Sodium Chloride (Sodium Chloride 0.9%) 1,000 mls @ 1,000 mls/hr IV .Q1H STA Stop: 07/15/18 13:27 Last Admin: 07/15/18 12:00 Dose: 1,000 mls/hr eMAR Start Stop Document 07/15/18 12:00 [email or web address] (Rec: 07/15/18 13:12 [id number]) Intravenous Solution Start Date 07/15/18 Start Time 12:00 End Date 07/15/18 End time 13:00 Total Infusion Time 60 Morphine Sulfate (Morphine) 4 mg IVP STAT STA Stop: 07/15/18 13:40 - Scribe Statement The provider has reviewed the documentation as recorded by the Scribe Harrison White Provider Scribe Attestation: All medical record entries made by the Scribe were at my direction and personally dictated by me. I have reviewed the chart and agree that the record accurately reflects my personal performance of the history, physical exam, medical decision making, and the department course for this patient. I have also personally directed, reviewed, and agree with the discharge instructions and disposition. Disposition/Present on Arrival - Present on Arrival Any Indicators Present on Arrival: No History of DVT/PE: Yes History of Uncontrolled Diabetes: No Urinary Catheter: No History of Decub. Ulcer: No History Surgical Site Infection Following: None - Disposition Have Diagnosis and Disposition been Completed?: Yes Diagnosis: Left flank pain Disposition: HOME/ ROUTINE Disposition Time: 16:49 Condition: STABLE Discharge Instructions (ExitCare): Flank Pain (DC) Additional Instructions: CEZAR LILLY, thank you for letting us take care of you today. Your provider was Vero Patel MD and you were treated for (L) SIDED GROIN PAIN. The emergency medical care you received today was directed at your acute symptoms. If you were prescribed any medication, please fill it and take as directed. It may take several days for your symptoms to resolve. Return to the Emergency Department if your symptoms worsen, do not improve, or if you have any other problems. Please contact your doctor or call one of the physicians/clinics you have been referred to that are listed on the Patient Visit Information form that is included in your discharge packet. Bring any paperwork you were given at discharge with you along with any medications you are taking to your follow up visit. Our treatment cannot replace ongoing medical care by a primary care provider outside of the emergency department. Thank you for allowing the [facility] team to be part of your care today. If you had an X-Ray or CT scan: A Radiologist will review the ED reading if any change in treatment is needed we will contact you. If you had a blood, urine, or wound culture: It will take several days for the results, if any change in treatment is needed we will contact you. If you had an STI test: It will take 48 hours for the results. Please call after 1 week if you have not heard back. Referrals: Rubi Lanier MD [Primary Care Provider] - Follow up with primary Forms: [employer] (Maltese)
--- NOTE | 2018-07-15 14:45 | CT ---
Date of service: 07/15/2018 PROCEDURE: CT Abdomen and Pelvis without intravenous contrast HISTORY: left flank pain COMPARISON: 08/09/2017 TECHNIQUE: Without contrast.. Contrast dose: Radiation dose: Total exam DLP = 1754.12 mGy-cm. This CT exam was performed using one or more of the following dose reduction techniques: Automated exposure control, adjustment of the mA and/or kV according to patient size, and/or use of iterative reconstruction technique. FINDINGS: LOWER THORAX: Unremarkable. LIVER: Unremarkable. No gross lesion or ductal dilatation. GALLBLADDER AND BILE DUCTS: Several small stones are seen in the gallbladder PANCREAS: Unremarkable. No gross lesion or ductal dilatation. SPLEEN: Unremarkable. ADRENALS: Unremarkable. No mass. KIDNEYS AND URETERS: No evidence of hydronephrosis. No evidence of urolithiasis. VASCULATURE: Unremarkable. No aortic aneurysm. Aortic calcifications. BOWEL: Unremarkable. No obstruction. No gross mural thickening. APPENDIX: Unremarkable. Normal appendix. PERITONEUM: Unremarkable. No free fluid. No free air. LYMPH NODES: Unremarkable. No enlarged lymph nodes. BLADDER: Unremarkable. REPRODUCTIVE: Unremarkable. BONES: No acute fracture. OTHER FINDINGS: None. IMPRESSION: No evidence of hydronephrosis. No evidence of urolithiasis. No acute intra-abdominal findings
[2018-07-15 16:16] LABS: PH,URINE 6.5 (4.7-8.0); URINE BILIRUBIN NEGATIVE (NEGATIVE); URINE BLOOD TRACE-LYSED (NEGATIVE); URINE GLUCOSE (UA) NEGATIVE (NEGATIVE); URINE LEUKOCYTE ESTERASE NEGATIVE Leu/uL (NEGATIVE); URINE PROTEIN 100 mg/dL (<30 mg/dL); URINE UROBILINOGEN 0.2 E.U./dL (<1 E.U./dL)
[2018-07-15 16:28] LABS: URINE APPEARANCE CLEAR (CLEAR); URINE COLOR YELLOW (YELLOW)
[2018-07-15 16:41] VITALS: O2SAT 100
[2018-07-15 17:04] LABS: URINE BACTERIA FEW /hpf
[2018-07-15 17:05] VITALS: PULSE 88
[2018-07-15 17:06] VITALS: BP 170/81; RESP 18; TEMP 98.4
== END 2018-07-15 17:05 | disposition home or self-care (01) ==
LOC: ED 11:35
DX: R10.9 Unspecified abdominal pain (principal); I10 Essential (primary) hypertension; E78.5 Hyperlipidemia, unspecified; E11.9 Type 2 diabetes mellitus without complications; D64.9 Anemia, unspecified; Z95.5 Presence of coronary angioplasty implant and graft; F17.210 Nicotine dependence, cigarettes, uncomplicated
CPT/HCPCS: 74176; 80053; 81001; 83690; 83735; 85025; 85730; 96361; 96374; 99285; J2270; J7030